=== PATIENT | female | born 1950 | race Caucasian/White ===

== ENCOUNTER → 2019-02-20 13:54 | Outpatient (CLI) | payer MEDICARE, OTHER, SELFPAY ==
[2019-02-20 15:26] LABS: ALB/GLOB Ratio 1.1 RATIO (0.9-2.4); AST(SGOT) 14 U/L (15-37); Alanine Aminotransfer ALT/SGPT 22 U/L (13-56); Albumin, Serum 3.8 g/dL (3.2-5.0); Alkaline Phosphatase 84 U/L (45-117); Anion Gap 6 (5-15); BUN 18 mg/dL (7-18); BUN/Creat Ratio 22.4 RATIO (10-20); Calcium,Total 9.4 mg/dL (8.5-10.1); Chloride 105 mmol/L (98-107); EST Glomerular Filtration Rate 75 mL/min (>60); Est Glom Filt Rate - Afr Amer 91 mL/min (>60); Globulin 3.4 g/dL (2.2-4.2); Glucose 85 mg/dL (74-106); Magnesium 2.3 mg/dL (1.6-2.6); Phosphorus 3.8 mg/dL (2.5-4.9); Potassium 3.9 mmol/L (3.5-5.1); Protein, Total 7.2 g/dL (6.4-8.2); Sodium Level 139 mmol/L (136-145)
[2019-02-20 15:32] LABS: PTHIN 84.4 pg/mL (18.4-80.1)
[2019-02-21 12:39] VITALS: BP 147/66; PULSE 77; RESP 14; TEMP 36.5; O2SAT 100; BMI 22.1
[2019-02-21] MEDS: Zoledronic Acid 5 MG 100 ML 300 MG IV (12:51)
== END ==
LOC: MEDOUTP 14:57 → PAVLAB 15:01 → MEDOUTP 02-21 10:42
PROVIDERS: Family Provider Family Medicine; PCP Family Medicine; Referring Provider Internal Medicine Endocrinology, Diabetes & Metabolism; Visit Provider Internal Medicine Endocrinology, Diabetes & Metabolism
DX: M81.0 Age-related osteoporosis without current pathological fracture (principal); E21.3 Hyperparathyroidism, unspecified
CPT/HCPCS: 96365; 36415; 80053; 82330; 82652; 83735; 83970; 84100; J7050; A4216; J3489

== ENCOUNTER → 2019-11-13 08:22 | Outpatient (CLI) | payer MEDICARE, OTHER, SELFPAY ==
[2019-02-21 12:39] VITALS: BMI 22.1
--- NOTE | 2019-11-13 08:36 | NM_ITS ---
CLINICAL: 69-year-old female with history of hypercalcemia. 99m Tc SESTAMIBI DUAL PHASE PARATHYROID SCINTIGRAPHY COMPARISON: Previous Tc sestamibi parathyroid scintigraphy study dated 04/01/2016 FINDINGS: Following the intravenous administration of 27.0 mCi of 99m Tc sestamibi, image acquisitions of the anterior neck at 20 minutes and 2.0 hours post radiopharmaceutical provision reveal: 1. Immediate static blood pool acquisitions demonstrate distribution of the radiopharmaceutical in the right and left thyroid colloid. There is decreased uptake defined in the midinferior pole of the left thyroid bed. Subtle radiopharmaceutical concentration is defined in the left anterior neck caudal to the inferior pole of the visualized left thyroid bed. 2. Delayed images depict near complete washout of the radiotracer from the previously defined left and right thyroid colloid. Subtle tracer concentration remains evident in the left anterior neck caudal to the previously defined inferior pole of the left thyroid bed. NM/Parathyroid Scan IMPRESSION: 1. The subtle increase in radiopharmaceutical concentration defined in the left anterior neck which appears caudal to the inferior pole of the left thyroid bed may represent the presence of a small parathyroid adenoma. 2. Overall compared to the previous Tc sestamibi parathyroid scintigraphy study dated 04/01/2016, there is potential demonstration of apparent parathyroid adenoma as described above. Electronically Signed: Luis Rodriguez DO at 21:52 EST Tel , Service support ,
== END ==
PROVIDERS: Family Provider Family Medicine; PCP Family Medicine; Referring Provider Internal Medicine Endocrinology, Diabetes & Metabolism; Visit Provider Internal Medicine Endocrinology, Diabetes & Metabolism
DX: E21.3 Hyperparathyroidism, unspecified (principal)
CPT/HCPCS: 78070; A9500

== ENCOUNTER → 2019-12-03 11:18 | Outpatient (CLI) | payer MEDICARE, OTHER, SELFPAY ==
[2019-02-21 12:39] VITALS: BMI 22.1
--- NOTE | 2019-12-03 11:23 | US_ITS ---
STUDY: THYROID ULTRASOUND REASON FOR EXAM: Female, 69 years old. PARATHYROID ENLARGEMENT -- LYMPH NODE ENLARGEMENT TECHNIQUE: Ultrasound evaluation of the thyroid was performed with real-time and static vasques-scale imaging. COMPARISON: 11/13/2019 FINDINGS: RIGHT LOBE: The right lobe of the thyroid gland measures 3.7 x 1.3 x 1.0 cm. There is a homogeneous echotexture. There are no demonstrated solid, cystic or complex lesions. LEFT LOBE: The left lobe of the thyroid gland measures 3.7 x 1.0 x 1.0 cm. There is a homogeneous echotexture. There are no demonstrated solid, cystic or complex lesions. ISTHMUS: The isthmus measures 2.4 mm. The regional lymph nodes are normal. Small hypoechoic rounded structure inferior to the right thyroid lobe likely represents parathyroid tissue. No solid or cystic mass identified adjacent to the left thyroid lobe. US/Thyroid IMPRESSION: No solid or cystic nodules of the thyroid gland. No parathyroid adenoma identified adjacent to the left thyroid lobe as suggested on prior nuclear medicine sestamibi study. Electronically Signed: Yash Mercer MD ([place]) at 12:08 EST , Service support ,
== END ==
PROVIDERS: Family Provider Family Medicine; PCP Family Medicine; Referring Provider Internal Medicine Endocrinology, Diabetes & Metabolism; Visit Provider Internal Medicine Endocrinology, Diabetes & Metabolism
DX: R59.1 Generalized enlarged lymph nodes (principal)
CPT/HCPCS: 76536

== ENCOUNTER → 2020-02-04 12:20 | Outpatient (CLI) | payer MEDICARE, OTHER, SELFPAY ==
[2019-02-21 12:39] VITALS: BMI 22.1
--- NOTE | 2020-02-04 12:25 | BD_ITS ---
STUDY: DUAL ENERGY X-RAY ABSORPTIOMETRY / DXA REASON FOR EXAM: Female, 69 years old. TOE TRIMMER -- USES STEROID NASAL SPRAY DAILY -- TAKES CALCIUM -- HAS TAKEN RECLAST LAST 5 YRS -- DOES MODERATE AMOUNT OF EXERCISE -- FAMILY HX OF OSTEO- MOTHER -- CLAUDIA OF 0.75 INCHES TECHNIQUE: Bone Mineral Density (BMD) measurements of lumbar spine and bilateral hips were obtained. COMPARISON: None. FINDINGS: Lumbar Spine (L1-L4): g/cm2 (0.967) / T-score (-1.8) / Z-score (-0.1) Findings are suggestive of osteopenia with a moderate fracture risk. Left Femur Total: g/cm2 (0.799) / T-score (-1.7) / Z-score (-0.2) Left Femoral Neck: g/cm2 (0.831) / T-score (-1.5) / Z-score (0.2) Right Femur Total: g/cm2 (0.802) / T-score (-1.6) / Z-score (-0.2) Right Femoral Neck: g/cm2 (0.766) / T-score (-2.0) / Z-score (0.3) BD/Dexa Bone Density Study IMPRESSION: The patient is considered osteopenic as outlined below according to World Altaf Organization (WHO) criteria with a moderate fracture risk. Reference Information: The T-score is the number of standard deviations above or below the standard which is normal for young adults at their peak bone mineral density. The World Health Organization (WHO) interprets the T-scores as follows: Above -1 Normal bone density Between -1 and -2.5 Osteopenia Equal to / or below -2.5 Osteoporosis As a practical clinical guideline, osteopenia may be graded as follows: Mild -1 through -1.5 Moderate -1.6 through -2.0 Severe -2.1 through -2.4 The Z-score is the number of standard deviations above or below age-matched controls. A Z-score of less than -1.5 would be considered abnormal. References: 1. NIH Osteoporosis and Related Bone Diseases http://www.osteo.org 2. International Society for Clinical Densitometry http://www.iscd.org 3. National Osteoporosis Foundation http://www.nof.org Electronically Signed: Mani Ignacio, at 14:55 EDT , Service support ,
== END ==
PROVIDERS: Family Provider Family Medicine; PCP Family Medicine; Referring Provider Internal Medicine Endocrinology, Diabetes & Metabolism; Visit Provider Internal Medicine Endocrinology, Diabetes & Metabolism
DX: M81.0 Age-related osteoporosis without current pathological fracture (principal)
CPT/HCPCS: 77080

== ENCOUNTER → 2020-09-08 10:39 | Outpatient (CLI) | payer MEDICARE, OTHER, SELFPAY ==
[2019-02-21 12:39] VITALS: BMI 22.1
--- NOTE | 2020-09-08 10:41 | BI_ITS ---
MAMMOGRAPHY - BILATERAL SCREENING REASON FOR EXAM: Female, 70 years old. Routine annual screening examination. PERTINENT HISTORY: Non-contributory. TECHNIQUE: Digital bilateral breast joey (3D mammographic acquisition) in the CC and MLO projections. 2-D mediolateral oblique (MLO) and craniocaudad (CC) views of both breasts were obtained. CAD: Full Field Digital Mammography with Computer Added Detection was performed. COMPARISON: Comparison is made with prior outside examination is 08/22/2019. FINDINGS: Breast Composition: The breasts are extremely dense, which lowers the sensitivity of mammography. There are no dominant masses or suspicious calcifications. No other significant abnormalities are identified. There has been no significant change since the prior study. BI/SCREEN MAMM (CAD) W/JOEY BILAT IMPRESSION: Stable bilateral screening mammogram. Yearly follow-up mammogram recommended. (A) ASSESSMENT CATEGORY: BIRADS Category 1: Negative. A letter regarding these results will be sent to the patient by the facility within 30 days. Approximately 10% of breast cancers are not detected by mammography. A normal mammogram should not delay biopsy of a clinically suspicious abnormality. [id number] Electronically Signed: Mani Ignacio, at 14:22 EDT , Service support ,
== END ==
PROVIDERS: PCP Internal Medicine; Referring Provider Internal Medicine; Visit Provider Internal Medicine
CPT/HCPCS: 77063; 77067

== ENCOUNTER 2021-04-29 11:24 | Emergency (ER) | payer MEDICARE, OTHER, SELFPAY ==
[2019-02-21 12:39] VITALS: BMI 22.1
[2021-04-29 11:25] VITALS: BP 194/87; PULSE 63; RESP 15; TEMP 36.4; O2SAT 100; BMI 21.9
--- NOTE | 2021-04-29 11:39 | EX.ED.DYSGE1 ---
HPI History of Present Illness Chief Complaint: Lower Extremity Injury Informant: patient Narrative Narrative: 70-year-old female states she did a 15 mile bike ride recently and her right knee was generally sore. Today she was sitting on her barstool with her leg underneath of her when she went to straighten it had significant pain. She states now is very painful for her to do almost any type of motion. She states she can bear weight. She applied knee brace and iced it. She is seen [facility] in the past. [facility] Medical History (Updated 04/29/21 @ 11:[address] London Carrera DO) Arthritis Hypertension Home Medications L.acidoph, paracasei,B. lactis 1 ea PO DAILY 11/13/17 [History Last Taken Unknown] antiarthritic combination no.2 [Glucosamine-Chondroitin] 900 mg PO DAILY 11/13/17 [History Last Taken Unknown] biotin 1 mg PO DAILY 11/13/17 [History Last Taken Unknown] cholecalciferol (vitamin D3) [Vitamin D3] 1,000 unit PO DAILY 11/13/17 [History Last Taken Unknown] fluticasone propionate 2 spray NASAL DAILY 11/13/17 [History Last Taken Unknown] omega-3 fatty acids 1,000 mg PO DAILY 11/13/17 [History Last Taken Unknown] Allergy/AdvReac Type Severity Reaction Status Date / Time naproxen Allergy Unknown Verified 06/23/17 11:07 Penicillins Allergy Rash Verified 06/23/17 11:07 azithromycin AdvReac Nausea/Vom/ Verified 06/23/17 11:07 Diarrhea Surgical History (Updated 04/29/21 @ 11:[address] London Carrera DO) H/O tubal ligation History of parathyroid surgery Social History (Updated 04/29/21 @ 11:[address] London Carrera DO) Smoking Status: Never smoker substance use type: does not use ROS ROS ED Constitutional Constitutional ED: Denies chills or weight loss Eyes Eyes: Denies change in vision or diplopia ENT ENT ED: Denies ear pain, rhinorrhea or sore throat Cardiovascular Cardiovascular: Denies chest pain, orthopnea, palpitations or racing heartbeat Respiratory/Chest Respiratory/Chest: Denies cough, dyspnea or orthopnea Gastrointestinal Gastrointestinal: Denies abdominal pain, diarrhea, nausea or vomiting Genitourinary Genitourinary ED: Denies dysuria, hematuria or urinary frequency Musculoskeletal Musculoskeletal: Reports other Details: See history of present illness ; Denies arthralgias or myalgias Integumentary Denies abscess or rash Neurologic Neurologic: Denies headache(s) or weakness Psychiatric Psychiatric: Denies anxiety, depression, suicidal ideation or suicidal thoughts Endocrine Endocrinology: Denies polydipsia, polyphagia or polyuria Allergic/Immunologic Allergic/Immunologic ED: Denies mouth swelling, tongue swelling or urticaria EXAM Physical Exam Const Vital Signs: 04/29/21 11:25 Temperature 97.6 F L Temperature Source Temporal Pulse Rate 63 Respiratory Rate 15 Blood Pressure 194/87 H Blood Pressure Mean 122 Pulse Ox 100 Oxygen Delivery Method Room Air Positive well nourished and well developed General Appearance ED: well developed HEENT Reports normocephalic, head/scalp atraumatic and moist mucous membranes Eyes PERRL and EOMs intact bilaterally Neck no lymphadenopathy, supple and no JVD Resp normal respiratory effort and clear to auscultation bilaterally Cardio regular rate, regular rhythm and no murmurs GI normal to inspection, nondistended, normoactive bowel sounds and non-tender Palpation: soft Back/Spine no CVA tenderness and normal ROM Extremity Extremity Narrative: Ligaments appear stable. There is no effusion or significant swelling seen. Patient has point tenderness just medial to the inferior aspect patella along the tibial plateau. General Extremety ED: Negative for edema General Extremity: Negative for edema Neuro oriented x3 and CN's II-XII intact bilaterally Sensorium / Orientation: alert Motor Exam: strength 5/5 throughout Psych mental status grossly normal Mood & Affect: Negative for depressed or tearful Skin no rashes or lesions noted and no wounds MDM MDM MDM Narrative Medical decision making narrative: My impression of the plain films of the knee is no acute fracture but degenerative changes noted. Patient was encouraged to wrap the knee and limit full range of motion and ice. Would recommend some anti-inflammatories. If not improving would recommend she follow-up with [facility]. Radiography Diagnostic Testing: Radiology Impression Knee X-Ray 04/29/21 11:45 IMPRESSION: Degenerative arthrosis. Electronically Signed: Mani Ignacio MD at 12:09 EDT , Service support , Discharge Plan Triage Chief Complaint: Lower Extremity Injury ED Provider: London Carrera Dx/Rx/DC Orders Clinical Impression: Acute pain of right knee Instructions: ED Meniscal Injury Knee Poss Prescriptions: No Action omega-3 fatty acids 1,000 MG capsule 1,000 mg PO DAILY RF: 0 fluticasone propionate 1 SPRAY Nasal.Sry 2 spray NASAL DAILY RF: 0 cholecalciferol (vitamin D3) [Vitamin D3] 1,000 UNIT capsule 1,000 unit PO DAILY RF: 0 antiarthritic combination no.2 [glucosamine-chondroitin] 900 MG tablet 900 mg PO DAILY RF: 0 biotin 1 MG capsule 1 mg PO DAILY RF: 0 L.acidoph, paracasei,B. lactis 1 EACH capsule 1 ea PO DAILY RF: 0 Primary Care Provider: Jennifer Romeo Referrals: Jennifer Romeo DO [Primary Care Provider] - As Needed Joel Modi MD [STAFF PHYSICIAN] - 10-14 Days if not better Activity Restrictions/Additional Instructions: Continue to wrap the knee. Ice and anti-inflammatories (ibuprofen or naproxen) Disposition Disposition: Home, self care
--- NOTE | 2021-04-29 11:45 | RAD_ITS ---
STUDY: X-RAY - RIGHT KNEE REASON FOR EXAM: Female, 70 years old. Injury TECHNIQUE: 3 view(s) of the knee. COMPARISON: None. FINDINGS: Normal visualized distal femur. Normal visualized proximal tibia and fibula. Normal proximal tibiofibular articulation. There is mild degenerative arthrosis of the medial femorotibial compartment. There is mild degenerative arthrosis of the lateral femorotibial compartment. Normal patellofemoral articulation. The soft tissue structures are unremarkable. RAD/Knee 3 Views IMPRESSION: Degenerative arthrosis. Electronically Signed: Mani Ignacio MD at 12:09 EDT , Service support ,
== END 2021-04-29 12:32 | disposition home or self-care (01) ==
PROVIDERS: Emergency Provider Emergency Medicine; PCP Internal Medicine
DX: M25.561 Pain in right knee (principal); I10 Essential (primary) hypertension; M19.90 Unspecified osteoarthritis, unspecified site; Z79.899 Other long term (current) drug therapy
CPT/HCPCS: 73562; 99282

== ENCOUNTER → 2021-09-21 13:21 | Outpatient (CLI) | payer MEDICARE, OTHER, SELFPAY ==
--- NOTE | 2021-09-21 13:23 | BI_ITS ---
MAMMOGRAPHY - BILATERAL SCREENING REASON FOR EXAM: Female, 71 years old. Routine annual screening examination. PERTINENT HISTORY: Non-contributory. TECHNIQUE: Digital bilateral breast joey (3D mammographic acquisition) in the CC and MLO projections. 2-D mediolateral oblique (MLO) and craniocaudad (CC) views of both breasts were obtained. CAD: Full Field Digital Mammography with Computer Added Detection was performed. COMPARISON: Comparison is made with prior study 09/08/2020. FINDINGS: Breast Composition: The breasts are extremely dense, which lowers the sensitivity of mammography. There are no dominant masses or suspicious calcifications. No other significant abnormalities are identified. There has been no significant change since the prior study. BI/SCRN MAMM (CAD)W/JOEY BILAT IMPRESSION: Stable bilateral screening mammogram. Yearly follow-up mammogram recommended. (A) ASSESSMENT CATEGORY: BIRADS Category 1: Negative. A letter regarding these results will be sent to the patient by the facility within 30 days. Approximately 10% of breast cancers are not detected by mammography. A normal mammogram should not delay biopsy of a clinically suspicious abnormality. [id number] Electronically Signed: Mani Ignacio MD at 11:04 EDT , Service support ,
== END ==
PROVIDERS: PCP Internal Medicine; Referring Provider Internal Medicine; Visit Provider Internal Medicine
DX: Z12.31 Encounter for screening mammogram for malignant neoplasm of breast (principal)
CPT/HCPCS: 77063; 77067

== ENCOUNTER → 2021-11-01 07:52 | Outpatient (CLI) | payer MEDICARE, OTHER, SELFPAY ==
[2021-11-01 07:59] LABS: Bacteria 0 SEEN /hpf (None Seen); Mucous, Urine 0 SEEN /hpf (<or=2+); Red Blood Cells-Urine 0 SEEN /hpf (0-5); Squamous Epithelial Cells - UA 0 SEEN /hpf (5-10); White Blood Cells 0 SEEN /hpf (0-5)
[2021-11-01 09:59] LABS: Absolute Lymphocyte Count 1.59 X10^3/uL (0.83-4.51); Absolute Neutrophil Count 2.6 X10^3/uL (2.0-7.7); Basophil# 0.05 X10^3/uL; Color, Urine Yellow (Yellow); Eosinophil# 0.14 X10^3/uL; Eosinophils% 2.9 % (0-5); Glucose, Dipstick Normal (Normal); Hematocrit 37.7 % (37-47); Hemoglobin 12.3 g/dL (12.0-15.0); Ketone-Dipstick Negative (Negative); Leukocyte Esterase-Dipstick 25 /ul (Negative); Lymphocyte # 1.59 X10^3/ul (0.83-4.51); Lymphocyte % 33.3 % (19-41); Mean Corp Hgb Conc 32.6 g/dL (32-36); Mean Corpuscular Hgb 29.4 pg (27.0-32.0); Mean Corpuscular Volume 90.2 fL (81-99); Mean Platelet Vol. 10.3 fl (6.2-12.0); Monocyte# 0.36 X10^3/uL; Monocyte% 7.5 % (0-10); NRBC Flagged by Analyzer 0 % (0-5); Neutrophil # 2.62 X10^3/uL (2.7-7.7); Neutrophil % 54.9 % (47-70); Nitrite-Dipstick Negative (Negative); Occult Blood-Urine Negative /ul (Negative); Platelet Count 360 K/mm3 (150-450); Protein-Dipstick Negative (Negative); RBC Distribution Width CV 13.2 % (11.6-14.6); RBC Distribution Width SD 43.7 fl (35.1-43.9); Red Blood Count 4.18 M/mm3 (4.2-5.4); Urine Bilirubin Dipstick Negative (Negative); Urine Clarity Clear (Clear); Urine Urobilinogen Normal (Normal); Urine pH 6.5 (5.0 - 8.0); White Blood Count 4.8 K/mm3 (4.4-11.0)
[2021-11-01 10:25] LABS: ALB/GLOB Ratio 0.8 RATIO (0.9-2.4); AST(SGOT) 16 U/L (15-37); Alanine Aminotransfer ALT/SGPT 23 U/L (13-56); Albumin, Serum 3.4 g/dL (3.2-5.0); Alkaline Phosphatase 77 U/L (45-117); Anion Gap 8 (5-15); BUN 18 mg/dL (7-18); BUN/Creat Ratio 22.5 RATIO (10-20); Calcium,Total 9.3 mg/dL (8.5-10.1); Chloride 106 mmol/L (98-107); Cholesterol 223 mg/dL (200); EST Glomerular Filtration Rate 75 mL/min (>60); Est Glom Filt Rate - Afr Amer 91 mL/min (>60); Glucose 80 mg/dL (74-106); High Density Lipoprotein 82 mg/dL; Potassium 3.9 mmol/L (3.5-5.1); Protein, Total 7.4 g/dL (6.4-8.2); Sodium Level 141 mmol/L (136-145); Thyroid Stim Hormone (TSH) 3.33 uIU/mL (0.358-3.74); Triglycerides 49 mg/dL; Very Low Density Lipoprotein 10 mg/dL (5-40)
[2021-11-01 10:26] LABS: Microalbumin,Random Urine < 5.0 mg/L (NO RANGE EST.)
[2021-11-01 10:51] LABS: Hepatitis C Antibody Non-Reactive (Nonreactive); Vitamin D,25 Hydroxy 42.3 ng/mL
== END ==
PROVIDERS: PCP Internal Medicine; Referring Provider Internal Medicine; Visit Provider Internal Medicine
DX: I10 Essential (primary) hypertension (principal); E03.9 Hypothyroidism, unspecified; E55.9 Vitamin D deficiency, unspecified; Z11.59 Encounter for screening for other viral diseases
CPT/HCPCS: 36415; 80053; 80061; 81001; 82043; 82306; 82570; 84443; 85025; 86803

== ENCOUNTER → 2022-03-31 | Outpatient (CLI) | payer MEDICARE, OTHER, SELFPAY ==
--- NOTE | 2022-03-31 08:33 | BD_ITS ---
STUDY: DUAL ENERGY X-RAY ABSORPTIOMETRY / DXA REASON FOR EXAM: Female, 71 years old. [id number]. The patient is postmenopausal. TECHNIQUE: Bone Mineral Density (BMD) measurements of lumbar spine and bilateral hips were obtained. COMPARISON: Comparison is made with prior study of 02/04/2020. FINDINGS: Lumbar Spine (L1-L4): g/cm2 (0.803) / T-score (-2.2) / Z-score (0.0) Findings are suggestive of osteopenia with a high fracture risk. Left Femur Total: g/cm2 (0.714) / T-score (-1.9) / Z-score (-0.3) Left Femoral Neck: g/cm2 (0.645) / T-score (-1.8) / Z-score (0.1) Right Femur Total: g/cm2 (0.763) / T-score (-1.5) / Z-score (0.1) Right Femoral Neck: g/cm2 (0.632) / T-score (-2.0) / Z-score (-0.1) The T-Scores on the most recent prior examination were: Lumbar Spine (L1-L4): There has been worsening of bone density since the previous examination. Left Femur Total: which represents a worsening of 3.4%. Right Femur Total: which represents an improvement of 2.9%. BD/Dexa Bone Density Study IMPRESSION: The patient is considered osteopenic as outlined below according to World Altaf Organization (WHO) criteria with a high fracture risk. There has been worsening of bone density since the previous examination. Reference Information: The T-score is the number of standard deviations above or below the standard which is normal for young adults at their peak bone mineral density. The World Health Organization (WHO) interprets the T-scores as follows: Above -1 Normal bone density Between -1 and -2.5 Osteopenia Equal to / or below -2.5 Osteoporosis As a practical clinical guideline, osteopenia may be graded as follows: Mild -1 through -1.5 Moderate -1.6 through -2.0 Severe -2.1 through -2.4 The Z-score is the number of standard deviations above or below age-matched controls. A Z-score of less than -1.5 would be considered abnormal. References: 1. NIH Osteoporosis and Related Bone Diseases www osteo.org 2. International Society for Clinical Densitometry www iscd.org 3. National Osteoporosis Foundation www nof.org Electronically Signed: Mani Ignacio MD at 11:04 EDT ,
== END | disposition home or self-care (01) ==
LOC: OPBD 08:28
PROVIDERS: PCP Internal Medicine; Visit Provider Internal Medicine
DX: Z78.0 Asymptomatic menopausal state (principal)
CPT/HCPCS: 77080

== ENCOUNTER → 2022-10-03 | Outpatient (CLI) | payer MEDICARE, OTHER, SELFPAY ==
--- NOTE | 2022-10-03 09:49 | BI_ITS ---
MAMMOGRAPHY - BILATERAL SCREENING REASON FOR EXAM: Female, 72 years old. Routine annual screening examination. PERTINENT HISTORY: Non-contributory. TECHNIQUE: Digital bilateral breast joey (3D mammographic acquisition) in the CC and MLO projections. 2-D mediolateral oblique (MLO) and craniocaudad (CC) views of both breasts were obtained. CAD: Full Field Digital Mammography with Computer Added Detection was performed. COMPARISON: Comparison is made with prior study dated 09/21/2021 and 09/08/2020. FINDINGS: Breast Composition: The breasts are extremely dense, which lowers the sensitivity of mammography. There are no dominant masses or suspicious calcifications. No other significant abnormalities are identified. There has been no significant change since the prior study. BI/SCRN MAMM (CAD)W/JOEY BILAT IMPRESSION: Stable bilateral screening mammogram. Yearly follow-up mammogram recommended. (A) ASSESSMENT CATEGORY: BIRADS Category 1: Negative. A letter regarding these results will be sent to the patient by the facility within 30 days. Approximately 10% of breast cancers are not detected by mammography. A normal mammogram should not delay biopsy of a clinically suspicious abnormality. [id number] Electronically Signed: Mani Ignacio MD at 10:24 EST ,
== END | disposition home or self-care (01) ==
LOC: OPBI 09:47
PROVIDERS: PCP Internal Medicine; Referring Provider Internal Medicine; Visit Provider Internal Medicine
DX: Z12.31 Encounter for screening mammogram for malignant neoplasm of breast (principal)
CPT/HCPCS: 77063; 77067

== ENCOUNTER → 2022-12-01 | Outpatient (CLI) | payer MEDICARE, OTHER, SELFPAY ==
--- NOTE | 2022-12-01 14:35 | VDLE_ITS ---
Reason For Study: LEG PAIN AND SWELLING RIGHT LEFT CFV is compressible, spontaneous, phasic, GSV is normal. competent and demonstrates normal CFV is compressible, spontaneous, phasic, augmentation. competent, and demonstrates normal Procedure augmentation. This is a venous duplex using B-mode, color FV is compressible, spontaneous, phasic, flow and spectral Doppler. competent and demonstrates normal Exam performed in department. augmentation. The exam was diagnostic. POP V is compressible, spontaneous, phasic, A preliminary report was called and/or faxed competent and demonstrates normal to Dr. Romeo. augmentation. T/P Trunk is compressible. PTV is compressible. LT PerV is compressible. Possible Epidermoid Cyst measuring approximately 2.35cm x 1.11cm noted Lt Mid Calf. VL/Venous Duplex US, Unilateral Interpretation Summary There is no evidence of left lower extremity deep vein thrombosis. Left great s aphenous vein appears patent and compressible segmentally. Normal flow patterns right common femoral vein Left mid calf subcutaneous 2.35 x 1.11 cm structure of undetermined etiology. C linical correlation would be appropriate. Ordering Physician: Jennifer Romeo Referring Physician: Jennifer Romeo Performed By: Kelechi Burk RVGail
== END | disposition home or self-care (01) ==
LOC: CVS 14:33
PROVIDERS: PCP Internal Medicine; Referring Provider Internal Medicine; Visit Provider Internal Medicine
DX: M79.662 Pain in left lower leg (principal)
CPT/HCPCS: 93971

== ENCOUNTER → 2022-12-16 | Outpatient (CLI) | payer MEDICARE, OTHER, SELFPAY ==
--- NOTE | 2022-12-16 07:53 | CT_ITS ---
EXAM: CT LEFT LOWER EXTREMITY WITHOUT INTRAVENOUS CONTRAST, TIBIA AND FIBULA CLINICAL INDICATION: mass of lower extremity. soft tissue swelling mid tibia area TECHNIQUE: Helically acquired images were obtained of the left tibia and fibula without intravenous contrast. 2-D reformats were performed by the technologist. This CT exam was performed using one or more of the following dose reduction techniques: automated exposure control, adjustment of the mA and/or kV according to patient size, and/or use of iterative reconstruction technique. This report was created using [employer] technology. COMPARISON: None. FINDINGS: BONES/JOINTS: No acute fracture or subluxation. Small left knee joint effusion. 4.9 x 1.9 cm Roque cyst. Arthritic narrowing and bony spurring of the knee joint. SOFT TISSUES: No soft tissue swelling or gas. No radiopaque foreign body. No soft tissue mass or hematoma. 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 Electronically Signed: Juan Miguel Arenas MD at 16:37 EST ,
== END | disposition home or self-care (01) ==
LOC: CT 07:52
PROVIDERS: PCP Internal Medicine; Visit Provider Internal Medicine
DX: M17.12 Unilateral primary osteoarthritis, left knee (principal); M71.20 Synovial cyst of popliteal space [Baker], unspecified knee; R22.42 Localized swelling, mass and lump, left lower limb
CPT/HCPCS: 73700

== ENCOUNTER → 2023-10-09 | Outpatient (CLI) | payer MEDICARE, OTHER, SELFPAY ==
--- NOTE | 2023-10-09 10:46 | BI_ITS ---
MAMMOGRAPHY - BILATERAL SCREENING REASON FOR EXAM: Female, 73 years old. Routine annual screening examination. PERTINENT HISTORY: Non-contributory. TECHNIQUE: Digital bilateral breast joey (3D mammographic acquisition) in the CC and MLO projections. 2-D mediolateral oblique (MLO) and craniocaudad (CC) views of both breasts were obtained. CAD: Full Field Digital Mammography with Computer Added Detection was performed. COMPARISON: Comparison is made with prior study of October 03, 2022 and September 21, 2021. FINDINGS: Breast Composition: The breasts are extremely dense, which lowers the sensitivity of mammography. There are no dominant masses or suspicious calcifications. No other significant abnormalities are identified. There has been no significant change since the prior study. BI/SCRN MAMM (CAD)W/JOEY BILAT IMPRESSION: Stable bilateral screening mammogram. Yearly follow-up mammogram recommended. (A) ASSESSMENT CATEGORY: BIRADS Category 1: Negative. A letter regarding these results will be sent to the patient by the facility within 30 days. Approximately 10% of breast cancers are not detected by mammography. A normal mammogram should not delay biopsy of a clinically suspicious abnormality. [id number] Electronically Signed: Mani Ignacio MD at 13:22 EST ,
== END | disposition home or self-care (01) ==
LOC: OPBD 10:45
PROVIDERS: PCP Internal Medicine; Referring Provider Internal Medicine; Visit Provider Internal Medicine
DX: Z12.31 Encounter for screening mammogram for malignant neoplasm of breast (principal)
CPT/HCPCS: 77063; 77067

== ENCOUNTER → 2023-11-29 | Outpatient (CLI) | payer MEDICARE, OTHER, SELFPAY ==
--- NOTE | 2023-11-29 15:00 | CT_ITS ---
INDICATION: NODULE EXAMINATION: CT CHEST WITH CONTRAST - CT Chest W/ Contrast Injection TECHNIQUE: Helically acquired images were obtained of the chest following IV contrast. A radiation dose optimization technique was used for this scan. IV Contrast dosage and agent: 100 cc of Isovue-[id number]. CTDI vol is 9.04. DLP: 178.48 COMPARISON: None. FINDINGS: LUNGS, PLEURA AND LARGE AIRWAYS: Mild bilateral lower lobe atelectasis. No masses, infiltrates, or edema. Left lower lobe calcified granuloma measuring 5 mm. Mild biapical pleural thickening with minimal calcified plaques. No pleural effusion . No pneumothorax. THYROID: No thyroid lesions. HEART AND PERICARDIUM: Heart size is normal. No pericardial effusion. VESSELS: Mild atherosclerosis of aorta with no aneurysm. No aortic dissection. No obvious central pulmonary embolism although this study was not performed with the pulmonary embolism protocol. MEDIASTINUM AND CELESTINA: No mediastinal or hilar adenopathy. Nonspecific calcifications within the mediastinum most compatible with sequela of old granulomatous infection. Esophagus is unremarkable. No hiatal hernia. UPPER ABDOMEN: No acute pathology. BONES: Mild spondylosis/degenerative disease. No suspicious lytic or blastic abnormality. CT/Chest WITH Contrast IMPRESSION: Mild bilateral lower lobe atelectasis, otherwise no acute cardiopulmonary disease. No pleural effusion or pneumothorax. Electronically Signed: Corrie Fleming MD at 17:00 EST ,
[2023-11-29 15:26] LABS: CREATININE FINGERSTICK < 1.0 mg/dL (0.55-1.02)
== END | disposition home or self-care (01) ==
LOC: CT 14:58
PROVIDERS: PCP Internal Medicine; Referring Provider Internal Medicine; Visit Provider Internal Medicine
DX: R91.1 Solitary pulmonary nodule (principal)
CPT/HCPCS: 71260

== ENCOUNTER → 2024-02-01 | Outpatient (CLI) | payer MEDICARE, OTHER, SELFPAY ==
--- NOTE | 2024-02-01 13:00 | CT_ITS ---
CT RIGHT LOWER EXTREMITY WITH 3-D IMAGING CLINICAL INDICATION: OA/PREOP TECHNIQUE: Axial CT images of the right lower extremity (including right hip, right knee, and right ankle) was performed without IV contrast material. Coronal and sagittal reformats were provided. RADIATION DOSAGE (If Supplied By Facility): CTDIvol = ( 17.01 ) mGy, DLP = ( 1236.12 ) mGycm COMPARISON: Right knee radiographs dated 04/29/2021. FINDINGS: Bones: There is mild degenerative arthrosis of the right hip joint with mild joint space narrowing and marginal osteophyte formation. There is tricompartment degenerative arthrosis of the right knee, with joint space narrowing and marginal osteophyte formation, most pronounced in the lateral femorotibial compartment. There is an 8 mm osteochondral lesion along the medial talar dome (sagittal series 607 image 28). Osseous structures are otherwise intact without evidence of fracture or dislocation. No lytic or blastic osseous masses. Soft Tissues: There is a moderate joint effusion. The deep soft tissue structures are unremarkable. The superficial soft tissues are unremarkable without evidence of edema, hematoma, or foreign body. CT/Extremity Lower without Contra IMPRESSION: Tricompartment degenerative arthrosis, most severe in the lateral femorotibial compartment. 8 mm osteochondral lesion along the medial talar dome. Electronically Signed: David Lindsey MD at 15:04 EST ,
== END | disposition home or self-care (01) ==
LOC: CT 12:58
PROVIDERS: PCP Internal Medicine; Referring Provider Specialist; Visit Provider Specialist
DX: M17.11 Unilateral primary osteoarthritis, right knee (principal)
CPT/HCPCS: 73700

== ENCOUNTER 2024-02-21 06:55 | Observation (INO) | payer MEDICARE, OTHER, SELFPAY ==
--- NOTE | 2024-02-01 12:57 | EKG12_ITS ---
Test Reason : PRE OP Blood Pressure : / mmHG Vent. Rate : 077 BPM Atrial Rate : 077 BPM P-R Int : 156 ms QRS Dur : 064 ms QT Int : 370 ms P-R-T Axes : 062 068 068 degrees QTc Int : 418 ms Normal sinus rhythm Septal infarct , age undetermined Abnormal ECG Confirmed by Aime Martin ([id number]), slot editor JOSH DEJESUS ([id number]) on 02/05/2024 2:00:34 PM Referred By: Kade Barnett Confirmed By:Aime Martin
[2024-02-01 14:14] LABS: Absolute Lymphocyte Count 1.79 X10^3/uL (0.83-4.51); Absolute Neutrophil Count 3.4 X10^3/uL (2.0-7.7); Basophil# 0.05 X10^3/uL; Basophil% 0.9 % (0-1); Eosinophil# 0.19 X10^3/uL; Eosinophils% 3.2 % (0-5); Hematocrit 36.6 % (37-47); Hemoglobin 11.7 g/dL (12.0-15.0); Lymphocyte # 1.79 X10^3/ul (0.83-4.51); Lymphocyte % 30.6 % (19-41); Mean Corpuscular Hgb 29.3 pg (27.0-32.0); Mean Corpuscular Volume 91.7 fL (81-99); Mean Platelet Vol. 10.2 fl (6.2-12.0); Monocyte# 0.44 X10^3/uL; Monocyte% 7.5 % (0-10); NRBC Flagged by Analyzer 0 % (0-5); Neutrophil # 3.37 X10^3/uL (2.7-7.7); Neutrophil % 57.6 % (47-70); Platelet Count 303 K/mm3 (150-450); RBC Distribution Width CV 13.2 % (11.6-14.6); RBC Distribution Width SD 44.7 fl (35.1-43.9); Red Blood Count 3.99 M/mm3 (4.2-5.4); White Blood Count 5.9 K/mm3 (4.4-11.0)
[2024-02-01 14:35] LABS: Albumin, Serum 3.6 g/dL (3.2-5.0); Anion Gap 8 (5-15); BUN 26 mg/dL (7-18); BUN/Creat Ratio 31.7 RATIO (10-20); Calcium,Total 9.4 mg/dL (8.5-10.1); Chloride 103 mmol/L (98-107); Creatinine, Serum 0.82 mg/dL (0.55-1.02); EST Glomerular Filtration Rate 73 mL/min (>60); Est Glom Filt Rate - Afr Amer 88 mL/min (>60); Glucose 108 mg/dL (74-106); Sodium Level 140 mmol/L (136-145)
[2024-02-01 14:56] LABS: AST(SGOT) 14 U/L (15-37); Alanine Aminotransfer ALT/SGPT 15 U/L (13-56); Albumin, Serum 3.6 g/dL (3.2-5.0); Alkaline Phosphatase 65 U/L (45-117); Bilirubin, Direct 0.09 mg/dL (0.00-0.30); Globulin 3.3 g/dL (2.2-4.2); Magnesium 2.2 mg/dL (1.6-2.6); Protein, Total 6.9 g/dL (6.4-8.2)
[2024-02-01 15:03] LABS: Prothrombin Time (Protime)PT. 12.8 SECONDS (11.7-14.9)
[2024-02-01 15:09] LABS: Partial Thromboplast Time 29.2 Seconds (24.1-36.2)
--- NOTE | 2024-02-12 23:00 | HP.PCM_ITS ---
History and Physical History and Physical? Patient Name: Ana Sanchez : 1950 From:? FRANSISCO KIM PA-C? DATE OF PRE-OPERATIVE EXAM: 02/12/2024 DATE OF SURGERY:? 02/21/2024 SCHEDULED PROCEDURE:? Robotic-assisted right total knee arthroplasty HISTORY OF PRESENT ILLNESS: Preoperative history and physical exam was performed on February 12, 2024.? This is a 73-year-old female who is having ongoing pain in bilateral knees for several years.? Patient's pain is been intermittent, dull, sharp and sore.? She does state the right knee pain has been more progressive over the past several months.? She has increased pain with going up and down stairs and walking.? Patient has difficulty with activities of daily living including housework and any leisure activities such as hiking and hiking.? She feels unsafe going up and down stairs.? She has tried conservative measures including rest, ice, heat, elevation and previous corticosteroid injection with no relief.? She has been through formal physical therapy, home exercises, child care supervisor and Visco supplementation injection without relief.? She has tried oral medications including ibuprofen, meloxicam and Celebrex.? She states she is able to tolerate the Celebrex.? She takes once daily.? She has also attempted bracing without significant relief.? She denies past history of surgery on the right knee.? After failing conservative measures and discussing all treatment options with Dr. Kade Barnett, the patient does wish to proceed with a right total knee arthroplasty.? Patient has obtained clearance from the primary care provider Dr. Romeo.? Patient has medical history pertinent for hypercholesterolemia and irritable bowel syndrome.? Patient denies past history of DVT or pulmonary emb olism.? There is been no recent chest pain, shortness of breath, fevers chills or recent infections.? Preoperatively patient's hemoglobin was found to be 11.7.? She denies past history of transfusions.? She does state that at one point when trying to get blood she was told she was not able to.? This happened many years ago.? She has not been treated for any anemia by the primary care provider.? She has been started on our anemia protocol preoperatively.? Per primary care physician not it was noted that she has had some elevated blood pressure readings.? She has been tolerating the Celebrex.? She has been taking it once daily. REVIEW OF SYSTEMS: Review Of Systems: Constitutional: Denies change in appetite, fever,or weight change. Cardiovasular: Denies chest pain, heart murmur and irregular heartbeat. Respiratory: Denies cough, pneumonia, shortness of breath, tuberculosis and wheezing. Gastrointestinal: Denies constipation, diarrhea, heartburn, nausea, rectal itching, bloody stools and vomiting. Genitourinary: Denies incontinence. Musculoskeletal: Reports leg swelling and pain, but denies trouble walking and weakness. Skin: Denies Raynaud's, history of shingles and tattoo. Neurological: Denies ambulatory dysfunction, dizziness, numbness/tingling and tremor. Psychiatric: Reports anxiety, but denies insomnia and stress. Hematologic/Lymphatic: Denies anemia, bleeding/bruising tendency and past transfusion. Reviewed, no changes. PAST MEDICAL HISTORY: Advance Care Plan: No Advance Directives Effective Date: 07/02/2020 Past Medical History: Medical Problems: Hypercholesterolemia, Arthritis Covid- 19 - (09/2020) IBS Accidents: None Surgical Hx: Hernia Repair - (1983) Tubal Ligation - (1983) Thyroid SX - (04/2020) L4-5 (bilateral) Transforaminal Epidural Steroid Injection - (03/15/2022) Dr Freda Da Silva @ [facility] Anesthesia Complications: None Assistive Devices: None Reviewed and updated. SOCIAL HISTORY: Social History: Marital: .Occupation: Retired.Work Status: Retired.Hand Dominance: Right- handed. Personal Habits:? Cigarette Use: Never Smoked Cigarettes.Smokeless Tobacco: Never Used Smokeless Tobacco.E-Cigarette Use: Never used.Alcohol: Occasionally.Drug Use: Denies Use.Enjoy Exercising: Exercises 1-3 X/Week. Reviewed, no changes. VITALS: Ht: 60.5 Wt: 113lb Wt k.257 BMI: 21.7 BP: 132/80 Pulse: 60 Resp: 15 T: 97.0 T: 36.1C Pain Level: 0 O2SatR: 96 ALLERGIES: Sulfa Erythromycin Marcaine - Headache Xylocaine - Headache Latex Naproxen? MEDICATIONS: Glucosamine Chondroitin 1500 Complex 1500 Com, Fluticasone Propionate 50 mcg/Act 1 spray nasally? daily, Biotin 5000 mcg po daily, Vitamin C? 1 po qd, Probiotic? 1 po qd, Zinc 50 mg 1po qday, Prevagen 10 mg 1po qday, Fish Oil 1000 mg daily, Calcium + D3 600-200 daily, Vitamin D3 250 mcg (00372 Ut) daily, Tylenol 8 Hour 650 mg twice a day prn, Celebrex 50 mg once a day, Ferrous Sulfate 325 (65 Fe) MG take 1 tablet by mouth twice a day, Folic Acid 1 mg 1 by mouth every day PRE-OP EXAM:? General appearance:NORMAL? ? ? Other: Eyes: Conjunctivae and lids: NORMAL? Pupils: ERR Ears, Nose, Mouth, and Throat: NORMAL? Other: Inspection of lips, teeth and gums: NORMAL? ?Other: Neck: Examination of neck: no masses noted. Respiratory: Assessment of respiratory effort: NORMAL? ?Other: ?Auscultation of lungs: clear to auscultation no wheezes, rhonchi or rales. Cardiovascular:? Auscultation of heart: regular rate and rhythm, no murmurs, gallops or rubs. PHYSICAL EXAMINATION: Patient does walk with an antalgic gait.? She has tenderness to palpation along the lateral joint line.? She has valgus alignment which is partially correctable.? She has crepitus with range of motion.? Range of motion: Lacks 3 full extension to 110 flexion with increased pain.? Stable to anterior/posterior drawer exam.? Sensation intact to light touch. IMAGING STUDIES: Previous x-rays of the right knee reveal valgus alignment and lateral joint space narrowing, subchondral sclerosis, osteophyte formation consistent with severe stage IV osteoarthritis IMPRESSION: 1.? Severe right knee osteoarthritis 2.? Severe left knee osteoarthritis 3.? Hypercholesterolemia 4.? Irritable bowel syndrome 5.? Anemia: Current hemoglobin 11.7 preoperatively 6.? Elevated blood pressure without diagnosis of hypertension PLAN: Dr. Kade Barnett did discuss and review with the patient all treatment options including surgical versus nonsurgical options.? Patient does wish to proceed with the above-stated procedure.? Potential risks, benefits, and complications of the procedure were discussed in detail including but not limited to , infection, nerve and blood vessel damage, persistent pain, numbness, tingling, paresthesias, blood clot, pulmonary embolism, and requirement for possible further surgery.? The patient expressed full understanding and has no further questions for the doctor.? Patient does agree to proceed with the above-stated procedure and has signed the surgery consent form. POST-OP MEDICATION PLAN: Pain Medications:? ?Pain regimen will be initiated by Dr. Kade Barnett in the hospital.? Patient is currently on Celebrex in which she tolerates.? Patient has begun anemia protocol in which she was started on ferrous sulfate and folic acid.? Preoperatively her hemoglobin was 11.7.?? DVT Prophylaxis:? Aspirin 81 mg twice daily for 4 weeks postoperatively.? Denies past history of DVT or pulmonary embolism This dictation was created using voice recognition software. Phonetic and/or grammatical errors may exist. ___? I have re-examined the patient.? There are no clinical changes since date of exam. ___? See progress notes for changes. ___? Dictated on admission Date: ? ? ?Time: Signature:
[2024-02-21] VITALS (16 sets, daily range): BP systolic 94–167; BP diastolic 51–94; PULSE 69–85; RESP 16–18; TEMP 35.8–36.6; O2SAT 95–100; BMI 21.2
--- NOTE | 2024-02-21 | KNEE_PTH ---
PATIENT: NAVEEN FUENTES LOC: MS3 U#:[id number] AGE/SX: 73/F ROOM: [facility] [place] RE02/21/[address]: Dr. Kade Barnett MD : 1950 BED: 1 DIS: 02/22/2024 SPEC #: [id number] RECD: 02/21/24 10:44 STATUS: DENAE FONTAINE #: [id number] JUAN: 02/21/24 00:[address]: Kade Barnett DEPT: SURGICAL PATHOLOGY RECD BY: Ronaldo Young ENTERED: 02/21/24 10:44 SP TYPE: TOTAL KNEE OTHR DR: Dr. Jennifer Romeo, DO Tissues: Knee, NOS Procedures: Decalcification bone/plaque Surgery Specimen Level IV HEADER OPERATION: NELLY, robotic assisted right total knee arthroplasty PRE-OP DIAGNOSIS: Severe right knee osteoarthritis TISSUE SUBMITTED: Right knee bone and tissue MICROSCOPIC DIAGNOSIS Bone and soft tissue, right knee, total knee replacement/resection: Pieces of bone with severe degenerative osteoarthritic changes. Fibroadipose tissue, fibroconnective tissue and reactive synovial tissue. RAFAEL: 02/26/24 MICROSCOPIC DESCRIPTION Slides are reviewed. GROSS DESCRIPTION Received is one container designated bone and soft tissue right knee. The specimen consists of multiple fragments of lake-yellow bone measuring in aggregate 12.0 x 12.0 x 2.0 cm. Also in the specimen container are multiple fragments of yellow-white soft tissue measuring in aggregate 5.0 x 2.0 x 0.6 cm. A number of bony fragments contain articular surfaces consistent with tibial plateau and femoral condyle and displaying prominent osteophyte formation, eburnation and bone erosion. Cost Control Supervisor sections are submitted in two cassettes as follows: 1 - soft tissue, 2 - bone after decalcification. / AM/ 02/21/24 TC:5 CPT: 15244, 59444
[2024-02-21] MEDS: Lactated Ringers 1,000 ML 999 ML IV (06:26)
[2024-02-21] MEDS: Acetaminophen 500 MG Tablet 1000 MG PO ×3 (06:28→21:29)
[2024-02-21] MEDS: Gabapentin 600 MG Tablet PO (06:29)
[2024-02-21] MEDS: Celecoxib 200 MG Capsule 400 MG PO (06:29)
[2024-02-21] MEDS: Magnesium 1 GM over 15 mins IV (06:30)
[2024-02-21] MEDS: Cefazolin 2 GM in 0.9% Normal Saline (100mL Bag) 100 ML IV (07:25)
[2024-02-21] MEDS: Lactated Ringers 1,000 ML 75 ML IV (07:27)
[2024-02-21] MEDS: TXA 1000mg in NS100 100ml (IVPB at Incision) 660 MG IV (07:44)
[2024-02-21] MEDS: dexAMETHasone 10 MG/ML Vial IV (07:44)
[2024-02-21 07:48] LABS: Bedside Glucose 59 mg/dL (74-106)
[2024-02-21] MEDS: JPS (Morphine 10mg/ml) OPERA.SITE (08:24)
[2024-02-21] MEDS: TXA 1000mg in NS100 100ml (IVPB at Closure) 660 MG IV (08:35)
--- NOTE | 2024-02-21 08:41 | OP.PCM_ITS ---
Report of Operation Date of Procedure: 02/21/24 Pre-Operative Diagnosis: Right knee primary osteoarthritis Post-Operative Diagnosis: Right knee primary osteoarthritis Surgery/Procedure Performed:: Right minimally invasive robotic total knee replacement Description of Surgical Findings:: Stable knee with good patella tracking Surgeon: Kade Barnett check examiner: Trevin Curiel Type of Anesthesia: Spinal Anesthesiologist: Santos Moss Special Medications: 2 g Ancef, 1 g TXA at incision, 1 g TXA closure, 10 mg Decadron, joint cocktail (5 mg Duramorph, 30 mL of 0.5% Ropivicaine, 1000 units of epinephrine, 30 mg of Toradol) Specimen's removed: Bony cuts Estimated Blood Loss (mL): 50 Fluids Replaced: 1500 ml crystalloid Description of Procedure: Implants used: 1. [place] size 3 triathlon cruciate retaining distal femoral press-fit component 2. Phani size 3 press-fit tritanium tibial baseplate 3. Phani X3 9 mm CS polyethylene 4. [place] X3 32 million asymmetric patella Brief history operative indications: 73-year-old f with history of right knee osteoarthritis with radiographic findings with loss of joint space, osteophyte formation and subchondral sclerosis. Failed conservative measures as mentioned in the H&P. Discussion of total knee arthroplasty as well as risk and benefits were discussed the patient including but not limited to blood loss, DVTs, PEs, neurovascular damage, general risk of anesthesia including loss of life, and stiffness or instability were discussed with patient. Patient demonstrated understanding and was able to sign informed consent. Procedure: On the date of procedure patient's right lower extremity was marked in the preoperative area. The patient was then taken back to the operating room where the patient was placed on the table in the supine position. All bony prominences were identified a well-padded. Anesthesia assumed control of the C-spine and airway and remained controlled throughout the remainder of the procedure. A tourniquet was placed on the right upper thigh and the leg was prepped in a sterile fashion. The surgeon then scrubbed at this time .Upon reentering the room right lower extremity was draped in a standard orthopedic fashion. A timeout was then called and everyone agreed upon the side, the site, the procedure to be performed, patient's identity and antibiotics given. Esmarch bandage was used to exsanguinate the extremity and the tourniquet was placed up to 250 mmHg with the knee in flexion. A midline skin incision was made and sharp dissection was taken down through skin subcutaneous tissue and fat. The standard medial parapatellar incision was made and the patella was subluxed laterally. An Appropriate deep MCL release was done and the fat pad was resected. Our attention was then directed to the patella. The patella was everted and a flat resection was made. The knee was then flexed up in 2 femoral pins were placed inside the incision and 2 tibial pins were placed outside the incision in the medial tibia bicortically. Once this was completed the 2 checkpoints in the femur and tibia were placed. Knee was then flexed up and the bony landmarks were registered. Once this was completed knee was taken through range of motion and manually stressed allowing us to a plan for an appropriate tibial cut. The robotic arm was brought into the field sterilely and checkpoint and saw were registered. Based on the patient's deformity the tibial cut was made neutral to the tibial axis. At this time the tensioner was then placed in the joint and ligament tension was checked at 90 degrees and full extension. Based on the patient's ligamentous tension appropriate adjustments were made to the operative plan and ligament releases were done. Once we were happy with our operative plan with balanced flexion and extension gaps our attention was directed to the femur. The robot was brought into the field sterilely and registered. Posterior condylar cuts, anterior chamfer cuts and anterior cuts were appropriately made for a size 3 femur. When these were completed the saws were switched out in the distal femoral and posterior chamfer cuts were made. Protecting the soft tissue throughout this time. A size 3 tibial base plate was selected. the knee was flexed to 90 degrees and the soft tissues and posterior osteophytes were removed from the joint. 40 cc of the periarticular injection was injected into the posterior medial corner of the joint. The appropriate trials were then placed on the femur and tibia. A trial polyethylene was trialed to ensure proper balancing and stability of the knee. The appropriate tibial internal rotation was then marked with a bovie. Our attention was then directed to the patella. The lug holes were drilled and the patella trial was placed. Patellar tracking was checked and deemed appropriate. Once we were happy lug holes were drilled for the femur and trial components were removed. the tibia was subluxed and pinned into place and the keel was punc hed and drilled appropriately. Final components were verified and opened, and cement was mixed in a vacuum. Phani Simplex cement was used. The wound was copiously irrigated with normal saline. When the cement was ready the components were impacted into place starting with the tibia, femur and finally cementing the patella. The trial poly component was placed and the knee was placed in full extension. All excess cement was removed in the process. Once the cement had cured the tracking, alignment and balance were verified and a size [] polyethylene component was placed. Once the final components were placed a 3-minute dilute Betadine lavage was performed followed by an Irrisept lavage was performed and the wound was copiously irrigated with normal saline solution and the periarticular injection was given. The wound was closed in a layer stevens fashion using #1 vicryl interrupted sutures for the arthrotomy, 2-0 interrupted Vicryl suture for the subcuticular layer and joseph for final skin closure. A sterile compressive dressing was then placed. The patient was then awakened from anesthesia, [place] and transferred to the PACU for recovery. Post op plan DVT ppx: ASA 81mg BID, thigh high compression stockings Follow up: in office in 2 weeks for wound check PT: to start POD #0 at hospital, outpatient PT should be arranged. My physician licensed loan officer assistant was a vital part of this case. He was important in appropriate retraction during the case, and protection of soft tissues during bony cuts. His intimate knowledge of the case and my steps aided in safe and expedient completion of the procedure as well as appropriate position of the leg during the case. He was also vital in assisting with closure under my direct supervision. Due to the complexity of this case robotic arm was used to assist in the surgery to improve accuracy and clinical outcomes. Complications No intraoperative complications Admit VTE Documentation VTE Present on Admission: No VTE Mechan Device Prophylaxis: SCD's and Thigh High MACHELLE Hose VTE Pharm Prophylaxis ordered?: Yes
--- NOTE | 2024-02-21 09:20 | RAD_ITS ---
STUDY: X-RAY - RIGHT KNEE REASON FOR EXAM: Female, 73 years old. Post op -- AP and Lateral xray of operative knee in PACU TECHNIQUE: 2 view(s) of the knee. COMPARISON: Comparison is made with prior study dated April 29, 2021. FINDINGS: Normal visualized distal femur. Normal visualized proximal tibia and fibula. Normal proximal tibiofibular articulation. The patient is status post total knee replacement. There is good alignment. Postoperative soft tissue changes. RAD/Knee 1 or 2 Views IMPRESSION: Status post total knee replacement. There is good alignment. Postoperative soft tissues changes. Electronically Signed: Mani Ignacio MD at 9:38 EDT ,
[2024-02-21] MEDS: Lactated Ringers 1,000 ML 125 ML IV (09:26)
[2024-02-21 10:29] LABS: Bedside Glucose 155 mg/dL (74-106)
[2024-02-21] MEDS: oxyCODONE 5 MG Tablet PO ×3 (13:33→23:40)
[2024-02-21] MEDS: Famotidine 20 MG Tablet PO (13:34)
[2024-02-21] MEDS: Aspirin 81 MG TAB.CHEW PO ×2 (13:34→21:29)
[2024-02-21] MEDS: Senna/Docusate Sodium 1 Tablet 2 TABLET PO (13:34)
[2024-02-21] MEDS: Cholecalciferol (VIT D3) 25 MCG TABLET (1,000 UNITS) PO (13:35)
[2024-02-21] MEDS: 0.9% Normal Saline (250mL Bag) 250 ML 15 ML IV (13:35)
[2024-02-21] MEDS: Calcium Carbonate 500 MG Tablet PO (13:35)
[2024-02-21] MEDS: Cefazolin 1 GM/50 ML BAG IV ×2 (15:17→23:40)
--- NOTE | 2024-02-21 15:28 | PN.HOSP_ITS ---
Reason for Visit Reason for Visit: Right knee osteoarthritis Subjective Subjective Mrs. Sanchez is a 73-year-old white female who presented to [facility] for an elective robotic assisted right total knee arthroplasty on 02/21/2024. She evidently had been having ongoing pain in bilateral knees for several years and failed outpatient conservative management. She met with Dr. Barnett and decided to proceed with a total knee arthroplasty. She was cleared medically by her primary care physician and taken to the OR this morning. We have been consulted for postoperative medical management of her chronic issues. She was seen on the medical floor after her surgery. Patient states she is feeling quite well and has been doing her exercises and has been out of bed. Denies any nausea and was able to eat without difficulty. Plan is for discharge home tomorrow as long as she stable does well with therapy. No complaints at this time. Objective Data Objective Data Vital Signs: Vital Signs Temp Pulse Resp BP Pulse Ox O2 Del Method O2 Flow Rate 97.8 F 69 18 146/79 H 98 Room Air 4 02/21/24 15:14 02/21/24 15:14 02/21/24 15:14 02/21/24 15:14 02/21/24 15:14 02/21/24 15:14 02/21/24 11:42 Oxygen Flow Rate (L/min) 4 Oxygen Delivery Method Room Air Weight: 51 kg Body Mass Index (BMI) 21.2 Intake & Output: Intake and Output for Last 24 Hours 02/19/24 02/20/24 02/21/24 23:59 23:59 23:59 Intake Total 3218.33 / 3218.33 Balance 3218.33 / 3218.33 Lab / Micro Data 02/01/24 13:38 02/01/24 13:38 Labs: Laboratory Results - last 24 hr 02/21/24 06:13: POC Glucose 59 L 02/21/24 10:10: POC Glucose 155 H Micro: Microbiology 02/01/24 13:38 Swab (Method) Nasal Screen MRSA/MSSA - Final Radiography Diagnostic Testing: Radiology Impression Knee X-Ray 02/21/24 09:20 IMPRESSION: Status post total knee replacement. There is good alignment. Postoperative soft tissues changes. Electronically Signed: Mani Ignacio MD at 9:38 EDT , Physical Exam Const alert, oriented x3, no apparent distress, average body habitus, healthy appearing and well nourished Constitutional Narrative: Very pleasant, older, white female lying in bed, at bedside, appears comfortable and nontoxic, watching television HEENT head/scalp atraumatic and moist oral mucous membranes Head and Scalp: normocephalic Resp normal respiratory effort, no retractions, no use of accessory muscles and clear to auscultation bilaterally Auscultation: Negative for rales, rhonchi or wheezes Cardio regular rate, regular rhythm, S1 normal heart sound, S2 normal heart sound, no murmurs, no rub, no gallops and no clicks GI normal to inspection, nondistended, normoactive bowel sounds, soft to palpation and non-tender Extremity no clubbing, cyanosis or edema Extremity Narrative: ASHWIN hose in place, right lower extremity with polar ice in place, pedal pulses a re 2+ Neuro oriented x3, moves all extremities and no focal motor deficits Speech: speech normal Psych affect normal Psych Narrative: Extremely pleasant, interacts appropriately Assessment & Plan Assessment/Plan (1) Osteoarthritis of right knee: PLAN: Plan Right knee osteoarthritis -Postop day 0 minimally invasive robotic total knee arthroplasty -PT/OT consultation per primary service -Pain management per primary service -Would recommend utilizing scheduled bowel regimen while on narcotics -Aspirin 81 mg p.o. twice daily and thigh-high Ashwin stockings recommended for DVT prophylaxis -Plan is for outpatient follow-up in 2 weeks for wound check and any imaging that needs to be proceeded with and Dr. Barnett's office Hyperlipidemia -Patient is not on any chronic medication for this Seasonal allergies -Continue nasal fluticasone History of IBS -Restart home medications at discharge DVT prophylaxis -Aspirin 81 mg p.o. twice daily -ASHWIN stockings Disposition: -Patient appears to be stable -Will assess again tomorrow morning but follow peripherally as I do anticipate discharge in the next 24 hours Charges/Coding Visit Charges Inpatient E&M: 20882 Subs Hosp L2
--- NOTE | 2024-02-21 15:49 | CHAPLAIN ---
Type of Pastoral Visit _x__ Initial Visit ___ Follow-up Visit ___ On-call Visit ___ General Patient Visit ___ Spiritual Assessment ___ Family Conference ___ Bereavement ___ Rapid Response ___ Code Blue ___ Other (describe below) Pastoral Care Referral From _x__ Patient ___ Family ___ Nurse ___ Physician ___ Coil Former ___ Collections Attorney ___ Other (describe below) Sacrament/Intervention _x__ Active listening ___ Anointing ___ Zoroastrian ___ Bereavement ___ Communion _x__ Mary exploration ___ _x__ Life review _x__ Prayer ___ Reconciliation ___ Sacrament of Sick ___ Supportive presence ___ Wedding ___ Other (describe below) Pastoral Comments post op for patient; spouse is with pt in room; both are welcoming of spiritual care; pt is very active in her moravian; pt is optimistic about recovery but welcomes the support and the prayers for this time of healing; some life review given
[2024-02-21] MEDS: Ketorolac 15 MG/ML Vial IV (21:29)
[2024-02-22 03:31] VITALS: BP 150/81; PULSE 73; RESP 16; TEMP 36.6; O2SAT 98
[2024-02-22] MEDS: Acetaminophen 500 MG Tablet 1000 MG PO ×2 (06:35→13:23)
[2024-02-22] MEDS: oxyCODONE 5 MG Tablet PO ×2 (06:35→12:08)
[2024-02-22] MEDS: 0.9% Saline Lock 10 ML Syringe IV ×2 (07:21→13:24)
[2024-02-22] MEDS: Ketorolac 15 MG/ML Vial IV ×2 (07:21→13:24)
[2024-02-22 08:00] VITALS: BP 166/87; PULSE 82; RESP 18; TEMP 37.1; O2SAT 98
[2024-02-22] MEDS: Aspirin 81 MG TAB.CHEW PO (08:06)
[2024-02-22] MEDS: Senna/Docusate Sodium 1 Tablet 2 TABLET PO (08:06)
[2024-02-22] MEDS: Calcium Carbonate 500 MG Tablet PO (08:06)
[2024-02-22] MEDS: Famotidine 20 MG Tablet PO (08:06)
[2024-02-22] MEDS: Cholecalciferol (VIT D3) 25 MCG TABLET (1,000 UNITS) PO (08:06)
[2024-02-22 08:08] LABS: Hematocrit 33.8 % (37-47); Mean Corp Hgb Conc 32.5 g/dL (32-36); Mean Corpuscular Hgb 29.3 pg (27.0-32.0); Mean Corpuscular Volume 89.9 fL (81-99); Mean Platelet Vol. 10.3 fl (6.2-12.0); Platelet Count 297 K/mm3 (150-450); RBC Distribution Width CV 12.9 % (11.6-14.6); RBC Distribution Width SD 42.5 fl (35.1-43.9); Red Blood Count 3.76 M/mm3 (4.2-5.4); White Blood Count 9.1 K/mm3 (4.4-11.0)
[2024-02-22 08:41] LABS: Anion Gap 5 (5-15); BUN 15 mg/dL (7-18); BUN/Creat Ratio 19.3 RATIO (10-20); Calcium,Total 8.8 mg/dL (8.5-10.1); Chloride 105 mmol/L (98-107); Creatinine, Serum 0.78 mg/dL (0.55-1.02); EST Glomerular Filtration Rate 77 mL/min (>60); Est Glom Filt Rate - Afr Amer 93 mL/min (>60); Estimated Creatinine Clearance 47.26 ml/min; Glucose 111 mg/dL (74-106); Potassium 3.8 mmol/L (3.5-5.1); Sodium Level 136 mmol/L (136-145)
--- NOTE | 2024-02-22 09:55 | CASEMGMT ---
SINDY GUIDRY Assessment: Face to Face with pt for initial transition planning/care coordination assessment. SINDY GUIDRY introduced self and role at [facility], pt voices understanding and consents to assessment. Pt is A&O x4 and answers all questions appropriately at this time. Pt lying in bed in no distress, reports just finished with therapy. Care providers, pharmacy, and demographics verified/updated. Admitting Dx: Robotic Assisted Right Total Knee Arthroplasty PCP:Ousmane Specialists:darshana Barnett; amber Wells mgmt Preferred Pharmacy: [facility] Retail Insurance: MCR, MMO Prescription Benefit: yes LNOK: Emeka Sanchez, Living Arrangements: Pt lives with in a single story home with 1 step to enter. Pt reports she was I in ADL's and denies concerns at home. Pt is able to assist as needed. Transportation: Pt drives self and denies concerns with transportation. Pt will transport pt until she can drive again. DME:Grab bar in shower, FWW, shower chair, [facility] HHC/SNF: Pt denies hx of Pt states no concerns with going home at time of dc. Pt states she has outpt therapy set up for 02/25 at [facility]. Pt states no further concerns/needs. CM to follow. Advised pt to ask CM if any further question/concerns/needs arise, voices understanding. Pt Goal: Home with outpt therapy already set up Plan: Home with outpt therapy already set up TC to 's office and appt made for 1wk for f/u with BP per PA request. Placed on dc instructions. Nathan CALLAHAN CM
--- NOTE | 2024-02-22 10:00 | PCM.PN.ORT ---
Subjective Subjective The patient was sitting in bed upon examination with present. Patient denies any chest pain, shortness of breath, dizziness, lightheadedness, nausea or vomiting, or calf pain. Pain is controlled on medications. No adverse overnight events. Patient overall is doing well today. She did very well with physical therapy. She has had some elevated blood pressure without diagnosis of hypertension. She denies any chest pain or rapid heart rate. No shortness of breath. Denies any headache. Objective Data Objective Data Vital Signs: Vital Signs Temp Pulse Resp BP Pulse Ox O2 Del Method O2 Flow Rate 98.7 F 82 18 166/87 H 98 Room Air 4 02/22/24 08:00 02/22/24 08:00 02/22/24 08:00 02/22/24 08:00 02/22/24 08:00 02/22/24 08:00 02/21/24 11:42 Oxygen Flow Rate (L/min) 4 Oxygen Delivery Method Room Air Weight: 51 kg Body Mass Index (BMI) 21.2 Intake & Output: Intake and Output for Last 24 Hours 02/20/24 02/21/24 02/22/24 23:59 23:59 23:59 Intake Total 3268.33 / 3318.33 258 / 258 Balance 3268.33 / 3318.33 258 / 258 Lab / Micro Data 02/22/24 06:15 02/22/24 06:15 Labs: Laboratory Results - last 24 hr 02/21/24 10:10: POC Glucose 155 H 02/22/24 06:15: WBC 9.1, RBC 3.76 L, Hgb 11.0 L, Hct 33.8 L, MCV 89.9, MCH 29.3, MCHC 32.5, RDW Std Deviation 42.5, RDW Coeff of Rae 12.9, Plt Count 297, MPV 10.3, Sodium 136, Potassium 3.8, Chloride 105, Carbon Dioxide 26.0, Anion Gap 5, BUN 15, Creatinine 0.78, Estim Creat Clear Calc 47.26, Est GFR (MDRD) Af Amer 93, Est GFR (MDRD) Non-Af 77, BUN/Creatinine Ratio 19.3, Glucose 111 H, Calcium 8.8 Micro: Microbiology 02/01/24 13:38 Swab (Method) Nasal Screen MRSA/MSSA - Final Physical Exam Narrative Vital signs stable and afebrile. Mildly elevated blood pressure SCDs and MACHELLE hose are in place bilaterally Patient is able to plantarflex and dorsiflex actively. Sensation is intact to light touch to saphenous, sural, superficial and deep peroneal, and tibial distribution. Dressing is clean dry and intact. Negative Homans bilaterally, negative signs and symptoms of DVT. Const alert, oriented x3 and no apparent distress Assessment & Plan Assessment/Plan (1) Status post total right knee replacement: PLAN: 1. S/P robotic assisted right total knee arthroplasty POD #1 2. Continue Pain Medications: Patient is currently on Exer strength Tylenol and oxycodone. She takes Celebrex at home. They do have the ability to monitor her blood pressure at home. If it remains high I would recommend she hold the Celebrex. 3. DVT Prophylaxis: Take 81 mg aspirin twice daily for 4 weeks postoperatively for DVT prophylaxis. Patient denies past history of DVT or pulmonary embolism 4. PT/OT: Weightbearing as tolerated with walker. Patient did very well this morning with therapy. 5. H & H: 11.0/33.8, asymptomatic. Labs were reviewed and are stable. 6. Elevated blood pressure without diagnosis of hypertension: Case was discussed with the hospitalist and recommends no current treatment. Does recommend 1 week follow-up with the primary care physician to reassess blood pressure. I did discuss this with the patient. Patient does have the ability to monitor her blood pressure. If needed they will contact the primary care physician if having any complications prior to her scheduled visit. Case management will assist in scheduling appointment. 7. Continue postoperative medical management per medicine 8. Encouraged Incentive Spirometry 9. Disposition: Plan will be for discharge home today as patient has been cleared by medicine, has been tolerating therapy, and pain is adequately controlled. She would like her prescriptions E scribed to [facility]. She has outpatient physical therapy established. She will follow-up per postoperative instructions. Upon discharge she will contact our office with any concerns or questions. Case management is scheduling a 1 week follow-up with her primary care physician for reassessment of blood pressure. I have reviewed the [place] Automated Rx Reporting System (OARRS) report for this patient for refill pattern and other prescriber involvement as part of the appropriate surveillance for the provision of acute and chronic controlled medications. The report was requested and reviewed on the date of this entry and was considered in the prescribing process. This dictation was created using voice recognition software. Phonetic and/or grammatical errors may exist.
--- NOTE | 2024-02-22 10:06 | PCM.DC ---
Discharge Instructions Diet Discharge Diet: No restrictions Activity Discharge Activity: May Not Drive (No driving for 6 weeks postoperatively. Must also be off all narcotics and able to walk 100 feet without the use of cane or walker.) May shower in (days): 1 (Please turn dressing away from water. Okay to get wet as long as dressing is intact to skin.) Ice area for (Minutes): 20 (Every 1-2 hours while awake[address] place barrier between the skin and ice pack.) Weight Bearing Status: Weight bearing as tolerated Keep extremity elevated above heart level: Operative Extremity Dressing / Incision Call your doctor if your incision/area has: Continuous Slow Oozing, Sudden Increased Bleeding, Increased Pain/ Swelling, Increased Redness and Foul Smelling Discharge Call your doctor if you observe: Fever of 101 or Higher, Coldness, Increased Pain, Numbness or Tingling, Change in Color, Shortness of breath, Chest pain, Calf discomfort and Uncontrolled pain Remove Dressing in: 4 days (Okay to remove dressing on February 26, 2024) Additional Dressing/Incision Instructions:: Follow [facility] Post-op Instructions. Once postoperative dressing has been removed only use gentle soap and water over the incision. Do not use any ointments, Neosporin, salves, alcohol pads over the incision for 6 weeks postoperatively. Do not submerge underwater for 6 weeks postoperatively. Continue with MACHELLE hose/elastic stockings for 2 weeks postoperatively. May remove at nighttime but needs to be placed back on the leg during the day. Do NOT use alcohol with narcotic pain medication. Do NOT make important decisions while taking narcotic medication. If you have problems with taking your medication (rash, itching, nausea, etc.) call the office at once. Follow Up Care Test Results: Test results from this visit will be discussed in further detail at your follow-up appointment, if applicable. Discharge Plan Admission Admit Date/Time: 02/21/24 06:55 Attending Provider: Kade Barnett Primary Care Provider: Jennifer Romeo Consulting Providers: Bonnie Lindsey Discharge Orders/Prescriptions Prescriptions: New acetaminophen 500 mg Tablet 1,000 mg PO Q8 14 Days Qty: 84 0RF Rx Instructions: Do not take more than 3000 mg Tylenol in a 24-hour period. aspirin 81 mg Tablet,Chewable 81 mg PO BID 30 Days Qty: 60 0RF Rx Instructions: Take 81 mg aspirin twice daily for 4 weeks postoperatively for DVT prophylaxis. famotidine 20 mg Tablet 20 mg PO DAILY 30 Days Qty: 30 0RF oxycodone 5 mg Tablet 5 - 10 mg PO Q4H PRN PRN (Reason: Pain Score 4-10) 7 Days Qty: 42 0RF sennosides-docusate sodium [Stool Softener-Stimulant Laxat] 8.6-50 mg Tablet 2 tab PO BID 3 Days Qty: 12 0RF Rx Instructions: Take until first bowel movement, then as needed Continued omega-3 fatty acids 1,000 MG capsule 1,000 mg PO DAILY fluticasone propionate 1 SPRAY spray,suspension 2 spray intranasal DAILY PRN (Reason: nasal congestion) cholecalciferol (vitamin D3) [Vitamin D3] 1,000 UNIT capsule 1,000 unit PO DAILY glucosamine-chondroitin 900 MG tablet 900 mg PO DAILY biotin 1 MG capsule 1 mg PO DAILY L.acidoph, paracasei,B. lactis 1 EACH capsule 1 ea PO DAILY celecoxib 100 mg capsule 100 mg PO BID calcium carbonate [Calcium 600] 600 mg calcium (1,500 mg) tablet 600 mg PO DAILY Discontinued diphenhydramine-acetaminophen [Tylenol PM Extra Strength] 1 tab PO QHS Referrals / Follow Up: physical,therapy [Other] - 02/26/24 Jennifer Romeo DO [Primary Care Provider] - Trevin Curiel PA-C [Med Staff - [facility] Practice Prof] - 03/07/24 1:45 pm Disposition Disposition (needs filled in before D/C Order can be placed): Home, Self Care
--- NOTE | 2024-02-22 10:18 | CASEMGMT ---
Met with pt to complete GIRARD form. GIRARD form explained to pt who voiced understanding and signed form. Original form placed in pt?s chart and copy provided to?pt. Sharri Knox, Discharge Planning Asst
--- NOTE | 2024-02-22 11:00 | CASEMGMT ---
Social Work Pt has a HCPOA on file at [facility] naming her Maxwell Sanchez as decision maker. Pt has marked on HCPOA that pt chose not to complete a living will. KINGSTON Franco
[2024-02-22 13:21] VITALS: BP 179/93; PULSE 72; RESP 18; TEMP 37; O2SAT 99
--- NOTE | 2024-02-22 14:22 | PHA.DC_ITS ---
Pharmacy [facility] has performed discharge medication reconciliation and counseling for this patient. The patient's discharge medication list was reviewed for discrepancies and discrepancies were resolved. The patient was counseled on the following discharge medications and changes in medications for homegoing were reviewed. 1. OXYCODONE 2. TYLENOL 3. ASPIRIN 4. SENNA-S 5. FAMOTIDINE The Reason for Use, instructions for use, and potential side effects were reviewed for all new medications. The patient's questions regarding all of their medications were answered. The patient was able to verbally demonstrate an understanding of their discharge medications. Medications at Discharge Home Medications L.acidoph, paracasei,B. lactis 10 billion cell capsule 1 ea PO DAILY 11/13/17 antiarthritic combination no.2 900 mg tablet (glucosamine-chondroitin) 900 mg PO DAILY 11/13/17 biotin 1 mg capsule 1 mg PO DAILY 11/13/17 cholecalciferol (vitamin D3) 25 mcg (1,000 unit) capsule (Vitamin D3) 1,000 unit PO DAILY 11/13/17 fluticasone propionate 50 mcg/actuation nasal spray,suspension 2 spray intranasal DAILY PRN nasal congestion 11/13/17 omega-3 fatty acids 1,000 mg capsule 1,000 mg PO DAILY 11/13/17 celecoxib 100 mg capsule 100 mg PO BID 01/26/24 calcium carbonate 600 mg calcium (1,500 mg) tablet (Calcium) 600 mg PO DAILY 02/21/24 acetaminophen 500 mg tablet 1,000 mg (2 x 500 mg) PO Q8 14 days #84 tabs 02/22/24 aspirin 81 mg chewable tablet 81 mg PO BID 30 days #60 tabs 02/22/24 famotidine 20 mg tablet 20 mg PO DAILY 30 days #30 tabs 02/22/24 oxycodone 5 mg tablet 5 - 10 mg (1 - 2 x 5 mg) PO Q4H PRN PRN Pain Score 4-10 7 days #42 tabs 02/22/24 sennosides 8.6 mg-docusate sodium 50 mg tablet (Stool Softener-Stimulant Laxative) 2 tab PO BID 3 days #12 tabs 02/22/24
== END 2024-02-22 14:33 | disposition home or self-care (01) ==
LOC: SDC 10:09 → MS3 10:09
PROVIDERS: Anesthesiology; Admitting Provider Specialist; PCP Internal Medicine; Referring Provider Specialist; Visit Provider Specialist
PROC: 0SRC0JZ Replacement of Right Knee Joint with Synthetic Substitute, Open Approach (ICD-10-PCS; CPT 27447; principal; 2024-02-21 07:00)
DX: M17.0 Bilateral primary osteoarthritis of knee (principal); D64.9 Anemia, unspecified; E78.00 Pure hypercholesterolemia, unspecified; K58.9 Irritable bowel syndrome, unspecified; R03.0 Elevated blood-pressure reading, without diagnosis of hypertension; Z79.899 Other long term (current) drug therapy; Z79.51 Long term (current) use of inhaled steroids; Z86.2 Personal history of diseases of the blood and blood-forming organs and certain disorders involving the immune mechanism
CPT/HCPCS: 27447; S2900; 01402; 36415; 73560; 80048; 80076; 82040; 82962; 83735; 85025; 85027; 85610; 85730; 87081; 88305; 88311; 93005; 94668; 96365; 96366; 96375; 96376; 97162; 97166; 97530; 97535; 99221; 99252; C1776; J7050; J7120; A4216; G0378; G0463; J3475

== ENCOUNTER → 2024-04-02 | Outpatient (CLI) | payer MEDICARE, OTHER, SELFPAY ==
--- NOTE | 2024-04-02 09:55 | BD_ITS ---
STUDY: DUAL ENERGY X-RAY ABSORPTIOMETRY / DXA REASON FOR EXAM: Female, 73 years old. [id number] TECHNIQUE: Bone Mineral Density (BMD) measurements of lumbar spine and bilateral hips were obtained. COMPARISON: Comparison is made with prior study March 31, 2022. FINDINGS: Lumbar Spine (L1-L4): g/cm2 (0.729) / T-score (-2.6) / Z-score (-0.4) Findings are suggestive of osteoporosis with a high fracture risk. Left Femur Total: g/cm2 (0.718) / T-score (-1.8) / Z-score (-0.1) Left Femoral Neck: g/cm2 (0.633) / T-score (-1.9) / Z-score (0.1) Right Femur Total: g/cm2 (0.740) / T-score (-1.7) / Z-score (0.1) Right Femoral Neck: g/cm2 (0.620) / T-score (-2.1) / Z-score (-0.1) The T-Scores on the most recent prior examination were: Lumbar Spine (L1-L4): There has been worsening of bone density since the previous examination. Left Femur Total: which represents an improvement of 0.5%. Right Femur Total: which represents a worsening of 3%. BD/Dexa Bone Density Study IMPRESSION: The patient is considered osteoporotic as outlined below according to World [employer] Organization (WHO) criteria with a high fracture risk. There has been worsening of bone density since the previous examination. Reference Information: The T-score is the number of standard deviations above or below the standard which is normal for young adults at their peak bone mineral density. The World Health Organization (WHO) interprets the T-scores as follows: Above -1 Normal bone density Between -1 and -2.5 Osteopenia Equal to / or below -2.5 Osteoporosis As a practical clinical guideline, osteopenia may be graded as follows: Mild -1 through -1.5 Moderate -1.6 through -2.0 Severe -2.1 through -2.4 The Z-score is the number of standard deviations above or below age-matched controls. A Z-score of less than -1.5 would be considered abnormal. References: 1. NIH Osteoporosis and Related Bone Diseases www osteo.org 2. International Society for Clinical Densitometry www iscd.org 3. National Osteoporosis Foundation www nof.org Electronically Signed: Mani Ignacio MD at 13:04 EDT ,
== END | disposition home or self-care (01) ==
LOC: OPBD 09:49
PROVIDERS: PCP Internal Medicine; Referring Provider Internal Medicine; Visit Provider Internal Medicine
DX: Z78.0 Asymptomatic menopausal state (principal)
CPT/HCPCS: 77080

== ENCOUNTER → 2024-08-19 | Outpatient (CLI) | payer MEDICARE, OTHER, SELFPAY ==
[2024-08-21 06:09] LABS: Creatinine, Urine 90.2 mg/dL (Not Estab.); N-Telopeptide, Urine 246 nmol BCE (Not Estab.); NTX:Creatinine Ratio, Urine 31 (0-89)
== END | disposition home or self-care (01) ==
LOC: MTLAB 09:10
PROVIDERS: PCP Internal Medicine; Referring Provider Internal Medicine Endocrinology, Diabetes & Metabolism; Visit Provider Internal Medicine Endocrinology, Diabetes & Metabolism
DX: M81.0 Age-related osteoporosis without current pathological fracture (principal); E21.3 Hyperparathyroidism, unspecified
CPT/HCPCS: 82523

== ENCOUNTER → 2024-10-10 | Outpatient (CLI) | payer MEDICARE, OTHER, SELFPAY ==
--- NOTE | 2024-10-10 11:52 | BI_ITS ---
MAMMOGRAPHY - BILATERAL SCREENING REASON FOR EXAM: Female, 74 years old. Routine annual screening examination. PERTINENT HISTORY: Non-contributory. TECHNIQUE: Digital bilateral breast joey (3D mammographic acquisition) in the CC and MLO projections. 2-D mediolateral oblique (MLO) and craniocaudad (CC) views of both breasts were obtained. CAD: Full Field Digital Mammography with Computer Added Detection was performed. COMPARISON: Comparison is made with prior study October 09, 2023 and October 03, 2022. FINDINGS: Breast Composition: The breasts are extremely dense, which lowers the sensitivity of mammography. There are no dominant masses or suspicious calcifications. No other significant abnormalities are identified. There has been no significant change since the prior study. BI/SCRN MAMM (CAD)W/JOEY BILAT IMPRESSION: Stable bilateral screening mammogram. Yearly follow-up mammogram recommended. (A) ASSESSMENT CATEGORY: BIRADS Category 1: Negative. A letter regarding these results will be sent to the patient by the facility within 30 days. Approximately 10% of breast cancers are not detected by mammography. A normal mammogram should not delay biopsy of a clinically suspicious abnormality. [id number] Electronically Signed: Mani Ignacio MD at 13:12 EST ,
== END | disposition home or self-care (01) ==
LOC: OPBI 11:52
PROVIDERS: PCP Internal Medicine; Referring Provider Internal Medicine; Visit Provider Internal Medicine
DX: Z12.31 Encounter for screening mammogram for malignant neoplasm of breast (principal)
CPT/HCPCS: 77063; 77067

== ENCOUNTER → 2025-08-01 | Outpatient (CLI) | payer MEDICARE, OTHER, SELFPAY ==
--- OUTSIDE RECORDS SUMMARY | 2025-08-01 07:37 | XMS RPT_ITS | CCD ---
Author Organization [facility] Care Team Providers Care Data Quality Consultant Name Role Phone Jennifer Romeo Unavailable Cailin, Krystle Unavailable Unavailable Unavailable Unavailable Gravius, Minoo Unavailable Unavailable Riley Lopez Unavailable Unavailable Tanphaichitr - Kimbrough, Alfa Unavailable Ciesa, Parvin Unavailable Jennifer Romeo DO Unavailable [phone] Tanphaichitr - Kimbrough, Alfa Unavailable Riley Lopez LPN Unavailable Unavailable Ciesa LUIS CARLOS, Parvin Unavailable Cailin RICHARDSON, Krystle Unavailable Unavailable Unavailable Unavailable Slatish TROYN, Daisha Unavailable Unavailable Gravius JASMIN, Minoo Unavailable Unavailable OusmaneAutumn cerna DOhleen Unavailable Patrice ALDRIDGE, Delmi Unavailable Dr. Russell Keith Unavailable Eden JASMIN, Kayela Unavailable Unavailable Marisol Suazo MA Unavailable Unavailable Dr. Jennifer Romeo Primary Care Provider Dr. Christiano Odonnell Attending Provider [phone] Miguel Mullen Unavailable Marjorie Lee MA Unavailable Unavailable Jennifer Romeo DO Attending Unavailable Jennifer Romeo DO Referring Unavailable Jennifer Romeo DO Consulting Unavailable EMILY Alejandra LPN Unavailable Unavailable Dr. Jennifer Romeo Primary Care Provider [phone] Dr. Aime Martin Attending Provider Dr. Kade Barnett Referring Provider Dr. Kade Barnett Admit Provider Dr. Kade Barnett Other Provider [phone] Bonnie Lindsey Attending Provider Dr. Bonnie Lindsey Other Provider Ousmane, Jennifer Referring Unavailable Ousmane, Jennifer Primary Care Unavailable Ousmane, Jennifer Attending Unavailable Raghunathan, Ne Na Attending Unavaila ble Raghunathan, Ne Na Referring Unavaila ble Ousmane, Jennifer Primary Care Unavailable Ousmane, Jennifer Referring Unavailable Ousmane, Jennifer Primary Care Unavailable Ousmane, Jennifer Attending Unavailable Julianne, Chilton Attending Unavailable Ousmane, Jennifer Primary Care Unavailable Ousmane, Jennifer Primary Care Unavailable Julianne, Chilton Attending Unavailable Julianne, Bandar Referring Unavailable Allergies Allergy Classification Reported Allergen(s) Allergy Type Date of Onset Reaction(s) Facility Latex (3 sources) Latex; Translations: [Latex] Substance Allergy Rash [facility] Work Phone: Penicillins (antibiotic) (3 sources) Penicillins; Translations: [Penicillins] Drug Allergy [facility] Work Phone: (20 sources) Latex; Translations: [Latex] Allergy to substance (finding) 01-26-20 24 Rash [facility] Work Phone: (20 sources) Penicillins; Translations: [Penicillins] Allergy to substance (finding) 06-23-20 17 Rash [facility] Work Phone: (20 sources) Erythromycin *MACROLIDES*; Translations: [Erythromycin *MACROLIDES*] Allergy to drug (finding) [facility] Work Phone: (8 sources) Azithromycin Drug Allergy 06-23-20 17 Nausea/Vom/Penelope rrhea [facility] (8 sources) Naproxen Drug Allergy 06-23-20 17 Unknown, Swelling [facility] (6 sources) tiZANidine Drug Allergy [facility] Work Phone: Comment on above: rash (4 sources) Adhesive Tape; Translations: [adhesive tape] Propensity to adverse reactions 01-26-20 Itching [facility] (3 sources) Erythromycin Drug Allergy 01-26-20 Nausea/Vom/Penelope [facility] (3 sources) Garlic preparation Drug Allergy 01-26-20 Nausea/Vom/Penelope [facility] (3 sources) Lactose Drug Allergy 01-26-20 Nausea/Vom/Penelope [facility] (3 sources) Fish Containing Products Propensity to adverse reactions 01-26-20 Diarrhea [facility] (1 source) Azithromycin Drug Allergy 05-20-20 [facility] (1 source) Erythromycin Drug Allergy 05-20-20 [facility] (1 source) Garlic preparation Drug Allergy 05-20-20 [facility] (1 source) Lactose Drug Allergy 05-20-20 [facility] (1 source) Naproxen Drug Allergy 05-20-20 [facility] (1 source) Fish Containing Products Drug allergy (disorder) 05-20-20 [facility] Medications Current Medications Medication Drug Class(es) Dates Sig (Normalized) Sig (Original) acetaminophen 500 mg oral tablet (2 sources) Start: 02-22-2024 take 3000 mg by mouth every eight hours Acetaminophen Active 1000 MG PO EVERY 8 HOURS 84 February 22, 2024 12:00am Do not take more than 3000 mg Tylenol in a 24-hour period. Antiarthritic Combination No.2 (Glucosamine-Chondro itin) 900 MG tablet (8 sources) Start: 11-13-2017 take 1 tablet by mouth once daily Antiarthritic Combination No.2 (Glucosamine-Chondr oitin) 900 MG tablet Active 900 MG PO DAILY November 13, 2017 3:01pm Start: 11-13-2017 take 1 tablet by joo th once daily Antiarthritic Combination No.2 (Glucosamine-Chondroitin) 900 MG tablet Active 900 MG PO DAILY November 13, 2017 1:00am Start: 11-13-2017 take 1 tablet by joo th once daily Antiarthritic Combination No.2 (Glucosamine-Chondroitin) 900 MG tablet Active 900 MG PO DAILY November 13, 2017 12:00am aspirin 81 mg chewable tablet (2 sources) Platelet Aggregation Inhibitor, Nonsteroidal Anti-inflammatory Drug Start: 02-22-2024 take 81 mg by mouth twice daily Aspirin Active 81 MG PO TWICE A DAY February 22, 2024 12:00am Take 81 mg aspirin twice daily for 4 weeks postoperatively for DVT prophylaxis. biotin 1 mg oral capsule (20 sources) Start: 11-13-2017 take 1 mg by mouth once daily Biotin Active 1 MG PO DAILY November 13, 2017 1:00am calcium carbonate 1500 mg oral tablet (2 sources) Start: 02-21-2024 take 1 tablet by mouth once daily Calcium Carbonate (Calcium 600) 600 mg calcium (1,500 mg) tablet Active 600 MG PO DAILY February 21, 2024 12:00am celecoxib 100 mg oral capsule (3 sources) Nonsteroidal Anti-inflammatory Drug Start: 01-26-2024 take 100 mg by mouth twice daily Celecoxib Active 100 MG PO TWICE A DAY January 26, 2024 1:00am cholecalciferol 0.025 mg oral capsule (20 sources) Vitamin D Start: 11-13-2017 take 1 capsule by mouth once daily Cholecalciferol (Vitamin D3) (Vitamin D3) 1,000 UNIT capsule Active 1000 UNIT PO DAILY November 13, 2017 1:00am take 1 capsule by mouth once Vit bateman D 50 MCG (2000 UT) Oral Capsule (50 MCG (2000 UT)) Active docusate sodium 50 mg / sennosides, jail 8.6 mg oral tablet (2 sources) Start: 02-22-2024 Sennosides-Docusate Sodium (Stool Softener-Stimulant Laxat) 8.6-50 mg Tablet Active 2 TABLET PO TWICE A DAY 12 February 22, 2024 12:00am Take until first bowel movement, then as needed famotidine 20 mg oral tablet (2 sources) Histamine-2 Receptor Antagonist Start: 02-22-2024 take 20 mg by mouth once daily Famotidine Active 20 MG PO DAILY February 22, 2024 12:00am fluticasone propionate 0.05 mg/actuat metered dose nasal spray (8 sources) Corticosteroid Start: 11-13-2017 Fluticasone Propionate Active 2 SPRAY INTRANASAL DAILY November 13, 2017 1:00am L.Acidoph, Paracasei,B. Lactis (8 sources) Start: 11-13-2017 L.Acidoph, Paracasei,B. Lactis Active 1 EACH PO DAILY November 13, 2017 3:01pm Start: 11-13-2017 Newton Vides acasei,B. Lactis Active 1 EACH PO DAILY November 13, 2017 1:00am Start: 11-13-2017 Newton Vides acasei,B. Lactis Active 1 EACH PO DAILY November 13, 2017 12:00am [place]-3 Fatty Acids (8 sources) Start: 11-13-2017 take 1000 mg by mout h once daily [place]-3 Fatty Acids Active 1000 MG PO DAILY November 13, 2017 3:01pm Start: 11-13-2017 take 1000 mg by mouth once beverly ly [place]-3 Fatty Acids Active 1000 MG PO DAILY November 13, 2017 1:00am Start: 11-13-2017 take 1000 mg by mouth once beverly ly [place]-3 Fatty Acids Active 1000 MG PO DAILY November 13, 2017 12:00am oxyCODONE hydrochloride 5 mg oral tablet (2 sources) Opioid Agonist Start: 02-22-2024 take 5-10 mg by mouth every four hours as needed Oxycodone Active 5 - 10 MG PO EVERY 4 HOURS NEEDED 42 7 February 22, 2024 Completed/Discontinued Medications Medication Drug Class(es) Dates Sig (Normalized) Sig (Original) azithromycin 250 mg oral tablet (17 sources) Macrolide Antimicrobial Start: 11-17-2022 End: 12-01-2022 take 1 tablet by mouth once daily Zithromax Z-Judah 250 mg oral tablet tad tablet qd for 0 days Quantity: 1 {Packet} Refills: 0 Ordered: 01-Dec-2022 Benjamin Vazquez CMA Start : 17-Nov-2022 End : 01-Dec-2022 Inactive Calcium-Vitamin D Oral Tablet (20 sources) Calcium-Vitamin D Oral Tablet (600-125 MG-IU) Active diphenhydramine-zohaib taminophen (2 sources) Start: 02-21-2024 End: 02-22-2024 take 1 tablet by mouth at bedtime diphenhydramine-ac etaminophen Discontinued 1 TABLET PO AT BEDTIME February 21, 2024 12:00am February 22, 2024 10:07am Glucosamine Chondr 500 Complex Oral Capsule (20 sources) Glucosamine [address] 500 Complex Oral Capsule Active ivermectin 10 mg/ml topical cream (20 sources) Antiparasitic, Pediculicide Soolantra 1 % External Cream (1 %) Inactive Comments: ivermectin cream Comment on above: ivermectin cream meloxicam 15 mg oral tablet (5 sources) Nonsteroidal Anti-inflammatory Drug Start: 03-13-2023 End: 09-14-2023 meloxicam 15 mg oral tablet 1 (one) tablet As needed for 0 days Quantity: 30 {Tablet} Refills: 0 Ordered: 14-Sep-2023 EMILY Alejandra LPN Start : 13-Mar-2023 End : 14-Sep-2023 Inactive Comments: Medication taken as needed. Comment on above: Medication taken as needed. minoxidil 20 mg/ml topical solution (20 sources) Arteriolar Vasodilator Minoxidil 2 % External Solution (2 %) Active nitrofurantoin, macrocrystals 25 mg / nitrofurantoin, monohydrate 75 mg oral capsule (20 sources) Nitrofuran Antibacterial Start: 07-20-2022 End: 07-25-2022 take 1 capsule by mouth twice daily Macrobid 100 MG Oral Capsule 1 (one) Capsule one tab bid for 5 days Quantity: 10 {Capsule} Refills: 0 Ordered: 20-Jul-2022 Patrice LUIS CARLOSDelmi Start : 20-Jul-2022 End : 25-Jul-2022 Inactive Start: 03-09-2021 End: 03-16-2021 take 1 capsule by mouth twice daily Macrobid 100 MG Oral Capsule 1 (one) Capsule bid for 7 days Quantity: 14 {Capsule} Refills: 0 Ordered: 09-Mar-2021 OndinaDinorah jones Start : 09-Mar-2021 End : 16-Mar-2021 Inactive Oldenburg 3 340 MG Oral Capsule Delayed Release (20 sources) Oldenburg 3 340 MG O ral Capsule Delayed Release (340 MG) Active phenazopyridine hydrochloride 100 mg oral tablet (20 sources) Start: 2020 End: 2020 take 1 tablet by mouth three times daily Pyridium 100 MG Oral Tablet 1 (one) Tablet tid for 2 days Quantity: 6 {Tablet} Refills: 0 Ordered: 09-Mar-2021 OndinaDinorah jones Start : 09-Mar-2021 End : 11-Mar-2021 Inactive Prevagen 10 MG Oral Capsule (20 sources) take 2 capsules by mouth once daily Prevagen 10 MG Oral Capsule 20mg daily (10 MG) Active saccharomyces boulardii 250 mg oral capsule (20 sources) Probiotic 250 MG Oral Capsule (250 MG) Active tacrolimus 0.001 mg/mg topical ointment (20 sources) Calcineurin Inhibitor Immunosuppressant Start: 2019 End: 2019 Tacrolimus 0.1 % External Ointment apply Application qd/prn bid for 0 days Quantity: 15 {Gram} Refills: 0 Ordered: 06-Aug-2020 Amy CASTELLANOS Minoo Start : 27-Apr-2020 End : 06-Aug-2020 Inactive Tacrolimus 0.1 % External Cream (20 sources) Tacrolimus 0.1 % External Cream (0.1 %) Active Comments: dr barajas Comment on above: dr barajas tiZANidine 4 mg oral tablet (7 sources) Central alpha-2 Adrenergic Agonist Start: 2022 End: 2022 tiZANidine 4 mg oral tablet 1 (one) tablet as needed for 28 days Quantity: 28 {Tablet} Refills: 0 Ordered: 24-Jan-2023 Marjorie Lee MA Start : 24-Jan-2023 End : 21-Feb-2023 Inactive Comments: Medication taken as needed. Comment on above: Medication taken as needed. triamcinolone acetonide 0.25 mg/ml topical cream (20 sources) Corticosteroid Triamcinolone Acetonide 0.025 % External Cream (0.025 %) Active Comments: for ears from ENT Comment on above: for ears from ENT zinc gluconate 30 mg oral tablet (20 sources) take 1 tablet by mouth once daily Zinc 30 MG Oral Tablet 1 daily (30 MG) Inactive 100 ml zoledronic acid 0.05 mg/ml injection (20 sources) Bisphosphonate Reclast 5 MG/100 ML Intravenous Solution (5 MG/100ML) Inactive Problems Active Problems Problem Classification Problem Date Documented Date Episodic/Chronic Allergic reactions (20 sources) Eczema; Translations: [Eczema] Resolved: 3 04-27-2020 Episodic Diseases of mouth; excluding dental (20 sources) Angular cheilitis; Translations: [Angular cheilitis] 04-27-2020 Episodic Disorders of lipid metabolism (20 sources) Hypercholesterolemia; Translations: [Hypercholesteremia] Onset: 5 11-08-2021 Chronic Comment on above: improved with no mitch armin -walking more and more oatcerail like cheerios with oat flour improved with no mitch armin -walking more and more oatcerail like cheerios with oat flourwill work on above Essential hypertension (20 sources) Hypertensive disorder; Translations: [HTN (hypertension)] 01-22-2021 Chronic Comment on above: Has apt March 30 with Brandi pt will exercise mor e and see if reduces bp over next few month Genitourinary symptoms and ill-defined conditions (20 sources) Urinary frequency; Translations: [Increased frequency of urination] Resolved: 3 03-09-2021 Episodic Comment on above: she is symptomatic s o will treat with macrobid, had last 02/2021 for E. coli and tolerated well.urine in office + for leuks (mod) and nitrites. Immunizations and screening for infectious disease (20 sources) Requires vaccination; Translations: [Need for pneumococcal vaccination] Resolved: 3 03-09-2021 Episodic Nutritional deficiencies (20 sources) Vitamin D deficiency; Translations: [Vitamin D deficiency] 11-08-2021 Chronic Comment on above: will increase to 2k will increase to 2k- stable Open wounds of head; neck; and trunk (8 sources) Scalp laceration; Translations: [Laceration without foreign body of scalp, initial encounter] 06-24-2017 Episodic Osteoarthritis (20 sources) Arthritis; Translations: [Arthritis] 12-22-2022 Chronic Comment on above: knee -left with smal l effusion Osteoporosis (20 sources) Disuse osteoporosis; Translations: [Osteoporosis, disuse] Onset: 4 04-27-2020 Chronic Comment on above: getting reclast inj from dr Pitts getting reclast inj from dr Raotopped after parathyriod surgery -- now osteopenia -- pt doesnt want meds -- so will cont ca++ , vit D and walking Other connective tissue disease (2 sources) History of total knee arthroplasty; Translations: [Presence of right artificial knee joint] 02-22-2024 Chronic Other connective tissue disease (2 sources) Presence of right artificial knee joint; Translations: [Knee joint replacement] 02-22-2024 Chronic Other connective tissue disease (20 sources) Pain of left calf; Translations: [Pain of left calf] 12-01-2022 Episodic Other connective tissue disease (20 sources) Synovial cyst of left popliteal space; Translations: [Roque cyst, left] 12-22-2022 Episodic Other endocrine disorders (20 sources) Hyperparathyroidism; Translations: [Hyperparathyroidism] 04-27-2020 Chronic Comment on above: sched to be resected 05/05/2020 sched to be resected 05/05/2020s/p removal partial and ca++ has normalized Other gastrointestinal disorders (20 sources) Irritable bowel syndrome; Translations: [IBS (irritable bowel syndrome)] 04-27-2020 Chronic Comment on above: fiber, stress managm ent Other inflammatory condition of skin (20 sources) Perioral dermatitis; Translations: [POD (perioral dermatitis)] 04-27-2020 Chronic Other nervous system disorders (20 sources) Paresthesia; Translations: [Paresthesia] 06-17-2020 Episodic Other non-traumatic joint disorders (8 sources) Pain in right knee; Translations: [Acute pain of right knee] 04-29-2021 Episodic Other skin disorders (20 sources) Mass of lower limb; Translations: [Mass of lower extremity, left] Resolved: 3 12-01-2022 Episodic Comment on above: no mass seen -- fat ? soft tissue swelling? Other upper respiratory infections (20 sources) Sinusitis; Translations: [Sinusitis] Resolved: 3 11-17-2022 Chronic Residual codes; unclassified (20 sources) Postmenopausal state; Translations: [Postmenopausal (Renamed from Postmenopausal status)] 08-06-2020 Episodic Comment on above: last dexa 2020 Residual codes; unclassified (20 sources) Body mass index 20-24 - normal; Translations: [BMI 21.0-21.9, adult] Resolved: 3 03-09-2021 Episodic Residual codes; unclassified (20 sources) Non-smoker; Translations: [Non-smoker] 03-09-2021 Episodic Residual codes; unclassified (4 sources) Influenza vaccination declined; Translations: [Influenza vaccination declined] 09-14-2023 Episodic Spondylosis; intervertebral disc disorders; other back problems (20 sources) Sciatica; Translations: [Sciatica, left side] 11-17-2022 Episodic Comment on above: - x-ray done / faili ng chiro care - had inj iin low back in past - failed nsaid includijng pred Thyroid disorders (20 sources) Hypothyroidism; Translations: [Hypothyroid] Resolved: 11-11-2020 Chronic Unclassified (20 sources) Patient encounter status; Translations: [Encounter for screening mammogram for breast cancer (Renamed from Screening mammogram, encounter for)] 04-27-2020 Comment on above: last scope 2016 due in 10 yr Unclassified (20 sources) Osteoporosis, disuse Unclassified (20 sources) Unclassified (20 sources) Non-smoker; Translations: [Non-smoker] 08-06-2020 Unclassified (20 sources) Encounter for annual general medical examination with abnormal findings in adult Unclassified (20 sources) Postmenopausal (Renamed from Postmenopausal status) Unclassified (20 sources) Colon cancer screening (Renamed from Encounter for screening for malignant neoplasm of colon) Unclassified (20 sources) BMI 21.0-21.9, adult Unclassified (13 sources) Need for pneumococcal vaccination Unclassified (9 sources) Hypercholesteremia Unclassified (5 sources) Encounter for hepatitis C virus screening test for high risk patient Past or Other Problems Problem Classification Problem Date Documented Da te Episodic/Chronic Headache; including migraine (20 sources) Headache; including migraine Other screening for suspected conditions (not mental disorders or infectious disease) (20 sources) Thyroid hormone tests abnormal; Translations: [Abnormal TSH] Onset: 11-07-2024 Resolved: 09-14-2023 08-06-2020 Episodic Comment on above: last scope 2016 due in 10 yr last scope 2016 due in 10 yrcologard 11/16 Pneumonia (except that caused by tuberculosis or sexually transmitted disease) (20 sources) Pneumonia (except that caused by tuberculosis or sexually transmitted disease) Residual codes; unclassified (15 sources) Requires vaccination; Translations: [Need for pneumococcal vaccination] 09-08-2020 Unclassified (20 sources) Encounter for screening for lipid disorder; Translations: [Patient encounter status] 04-27-2020 Unclassified (20 sources) POD (perioral dermatitis) Unclassified (20 sources) Body mass index 20-24 - normal; Translations: [BMI 22.0-22.9, adult] 08-06-2020 Unclassified (20 sources) Abnormal TSH Results Test Name Value Interpretation Reference Range Facility Coronary Angiography CTon Coronary Angiography CT [facility] Imaging Services [address] [place] [address] 05/21/25 1919 MR#: [id number] Acct: [id number] Name: NAVEEN FUENTES Rep #: [id number] : 1950 74 From: Bandar Whitaker MD PCP: Dr. Jennifer Romeo DO Status:REG REF Y Location: CT Calcium Scoring Date of Study:: 05/21/25 Indications Indications: Family history Coronary Calcium Scoring: High-resolution Computed Tomographic imaging of the chest was performed on [05/21/2025], with particular attention paid to the coronary arteries. Images from the examination were analyzed for the presence and extent of coronary artery calcification , using coronary calcium quantification software. The patient tolerated the procedure well and there were no complications. The results of the coronary calcification analysis are provided below. Findings Coronary Artery Left Main (LM): 0 Left Anterior Descending (LAD): 14 Left Circumflex (LCX): 0 Right Coronary Artery (RCA): 6.25 Total Agatston Score: 20.25 Percentile Rankin to 50th percentile Calcium Scoring Interpretation: Different methods to categorize the overall amount of coronary plaque. Overall amount CAC SIS Visual of coronary plaque P1 Mild -100 <2 1-2 vessels with mild amount of plaque P2 Moderate 101-300 3-4 1-2 vessels with moderate amount, 3 vessels with mild amount of plaque P3 Severe 301-999 5-7 3 vessels with moderate amount, 1 vessel with severe amount of plaque P4 Extensive >1000 >8 2-3 vessels with severe amount of plaque Calcium Score: Mild: 1-2 vessels w/mild amount of plaque Conclusion: Mild atherosclerotic plaquing only. 05/21/251919 Date Bandar Whitaker MD Cosigner Signature (if applicable): Date CC: Dr. Bandar Whitaker MD; Dr. Jennifer Romeo DO Signed Normal [facility] Limited Chest CT Cardiac Onl yon 05-21-[address] Cardiac Only [facility] Imaging Services [address] [place] [address] Cardiac Only MR#: [id number] Acct: [id number] Name: NAVEEN FUENTES Rep #: [id number] : 1950 F 74 From: Mani lomas MD PCP: Dr. Jennifer Romeo DO Status: REG REF Study: Limited Chest CT Cardiac Only Date of Exam: Exam# [id number] Ordering Dr: Jennifer Romeo DO PROCEDURE: LIMITED CHEST CT CARDIAC ONLY 05/21/2025 REASON FOR EXAM: FAMILIAL HYPERCHOLESTEROLEMIA TECHNIQUE: LIMITED CHEST CT CARDIAC ONLY CONTRAST: None One or more dose reduction techniques were used (e.g., Automated exposure control, adjustment of the mA and/or kV according to patient size, use of iterative reconstruction technique). RADIATION DOSE SUMMARY: CTDlvol: 12.19 mGy DLP: 219.42 mGycm COMPARISON: None FINDINGS: Coronary artery calcification. Line calcified left hilar and subcarinal lymph nodes. No pulmonary abnormality is seen. CT/Limited Chest CT Cardiac Only IMPRESSION: Coronary artery calcification. Reading Location: [facility] CC: Dr. Jennifer Romeo DO Director Of Maternity Services: Signed Normal [facility] S-I Jts 3 or More Viewson S-I Jts 3 or More Views [facility] [address] [place] [address] S-I Jts 3 or More Views MR#: [id number] Acct: [id number] Name: NAVEEN FUENTES Rep #: [id number] : 1950 F 74 From: David Lindsey MD PCP: Dr. Jennifer Romeo DO Status: DEP AMB Study: S-I Jts 3 or More Views Date of Exam: 10/29/24 Exam# [id number] Ordering Dr: Jennifer Romeo DO [id number] STUDY: X-RAY - SACROILIAC JOINTS REASON FOR EXAM: Female, 74 years old. SACROILIAC INFLAMMATION -- ATTN SI JOINTS TECHNIQUE: 3 views of the sacroiliac joints were obtained. COMPARISON: None. FINDINGS: Normal bilateral sacroiliac joints. Normal visualized sacral ala and sacrum. There is no demonstrated fracture or destructive osseous process. Normal visualized iliac bones. Normal visualized soft tissue structures. RAD/S-I Jts 3 or More Views IMPRESSION: Normal x-ray examination of the bilateral sacroiliac joints. Electronically Signed: David Lindsey MD at 16:20 EST Reading Location ID and State: [address] [place] [address] , Service support , CC: Dr. Jennifer Romeo DO Director Of Maternity Services: Signed Normal [facility] SCRN MAMM (CAD)W/JOEY BILATo n 10-10-2024 SCRN MAMM (CAD)W/JOEY BILAT [facility] Imaging Services [address] [place] [address] [phone] SCRN MAMM (CAD)W/JOEY BILAT MR#: [id number] Acct: [id number] Name: NAVEEN FUENTES Rep #: [id number] : 1950 F 74 From: Mani lomas MD PCP: Dr. Jennifer Romeo DO Status: REG CLI Study: SCRN MAMM (CAD)W/JOEY BILAT Date of Exam: 09/27 03/20 Exam# [id number] Ordering Dr: Jennifer Romeo DO [id number] MAMMOGRAPHY - BILATERAL SCREENING REASON FOR EXAM: Female, 74 years old. Routine annual screening examination. PERTINENT HISTORY: Non-contributory. TECHNIQUE: Digital bilateral breast joey (3D mammographic acquisition) in the CC and MLO projections. 2-D mediolateral oblique (MLO) and craniocaudad (CC) views of both breasts were obtained. CAD: Full Field Digital Mammography with Computer Added Detection was performed. COMPARISON: Comparison is made with prior study October 09, 2023 and October 03, 2022. FINDINGS: Breast Composition: The breasts are extremely dense, which lowers the sensitivity of mammography. There are no dominant masses or suspicious calcifications. No other significant abnormalities are identified. There has been no significant change since the prior study. BI/SCRN MAMM (CAD)W/JOEY BILAT IMPRESSION: Stable bilateral screening mammogram. Yearly follow-up mammogram recommended. (A) ASSESSMENT CATEGORY: BIRADS Category 1: Negative. A letter regarding these results will be sent to the patient by the facility within 30 days. Approximately 10% of breast cancers are not detected by mammography. A normal mammogram should not delay biopsy of a clinically suspicious abnormality. [id number] Electronically Signed: Mani Ignacoi MD at 13:12 EST , CC: Dr. Jennifer Romeo DO Director Of Maternity Services: Signed [facility] N-Telopeptide,Ur X Linkon INTERPRET.GUIDE [facility] Comment on above: Result Comment: The N-telopeptide and Creatinine are used to calculate the N-telo/Creat. Ratio which is referred to as NTx. Suggested guidelines for the clinical use of NTx are as follows: 1. Menopausal Women not on Hormone Replacement Therapy (HRT): Women with a baseline NTx value >38 are at significant risk for a decrease in bone mineral density (BMD) after 1 year compared to women on HRT. The probability of a decline in BMD increases with NTx value as follows: (1): Baseline NTx Probability of Decrease in BMD 18- 38 1.4 p=0.28 38- 51 2.5 p=0.03 51- 67 3.8 p=0.0006 67-188 17.3 p=0.0001 2. Menopausal Women Receiving Antiresorptive Therapy: The probability that treatment is effective after three months is increased when the measured NTx value is or=30% from baseline.[1] 3. Patients with Paget's Disease of Bone: The probability that treatment is effective after one month is increased when the measured NTx value is within the reference range, or NTx has decreased >or=30% from baseline.[2] 1. Lissette CH, Paez NH, Remington GS, et al. Am J Med, 102:29-37,1997. (1):M757, 1996. 2. Bone H, Ignacia J, et al. J Bone Min Res.11(1):M757,1995 Performed at: [facility] [address] [id number] [employer] Supervisor: Ludy De León MD, Phone: [phone] Performed at: [facility] Lab[address] [id number] [employer] Supervisor: Ky Carrion PhD, Phone: [phone] Performed By: #### L 3620.0100 #### [facility] Laboratory [address] [place] [address], [address] Basophil percentageOrdered B y: Kade Barnett on 02-22-2024 Chloride [Moles/Vol] 105 mmol/L 98-107 [facility] Glucose [Mass/Vol] 111 mg/dL 74-106 [facility] Comment on above: Fasting Glucose resu lt from 100 to 125 mg/dL suggests IMPAIRED HOMEOSTASIS per A.D.A. criteria. Hemoglobin (Bld) [Mass/Vol] 11.0 g/dL 12.0-15.0 [facility] Potassium [Moles/Vol] 3.8 mmol/L 3.5-5.1 [facility] Sodium [Moles/Vol] 136 mmol/L 136-145 [facility] WBC (Bld) [#/Vol] 9.1 10*3/uL 4.4-11.0 [facility] Determination of erythrocyte mean corpuscular volume (MCV)Ordered By: Kade Barnett on 02-22-2024 MCV (RBC) [Entitic vol] 89.9 fL 81-99 [facility] Erythrocyte distribution wid th ratioOrdered By: Kade Barnett on 02-22-2024 Erythrocyte distribution width (RBC) [Ratio] 12.9 % 11.6-14.6 [facility] Erythrocyte distribution wid th standard deviationOrdered By: Kade Barnett on 02-22-2024 Erythrocyte distribution width (RBC) [Entitic vol] 42.5 fL 35.1-43.9 [facility] Hematocrit Auto (Bld) [Volum e fraction]Ordered By: Kade Barnett on 02-22-2024 Hematocrit (Bld) [Volume fraction] 33.8 % 37-47 [facility] Laboratory - Chemistry and C hemistry - challengeOrdered By: Kade Barnett on 02-22-2024 CO2 [Moles/Vol] 26.0 mmol/L 21.0-32.0 [facility] Urea nitrogen/Creatinine [Mass ratio] 19.3 mg/mg 10-20 [facility] Laboratory - Hematology and Cell countsOrdered By: Kade Barnett on 02-22-2024 MCH (RBC) [Entitic mass] 29.3 pg 27.0-32.0 [facility] MCHC (RBC) [Mass/Vol] 32.5 g/dL 32-36 [facility] Platelet mean volume (Bld) [Entitic vol] 10.3 fL 6.2-12.0 [facility] Platelets (Bld) [#/Vol] 297 10*3/uL 150-450 [facility] No Panel InformationOrdered By: Kade Barnett on 02-22-2024 Estimated Creatinine Clearance Calc 47.26 ml/min [facility] Estimated GFR (MDRD) Amer 93 mL/min >60 [facility] Comment on above: GFR Calc Estimated GFR (MDRD) Non-Af Amer 77 mL/min >60 [facility] Comment on above: Non- GFR Calc RBC Auto (Bld) [#/Vol]Ordere d By: Kade Barnett on 02-22-2024 RBC (Bld) [#/Vol] 3.76 10*6/uL 4.2-5.4 [facility] Serum or plasma calcium keisha urement (mass/volume)Ordered By: Kade Barnett on 02-22-2024 Calcium [Mass/Vol] 8.8 mg/dL 8.5-10.1 [facility] Serum or plasma creatinine m easurement (mass/volume)Ordered By: Kade Barnett on 02-22-2024 Creatinine [Mass/Vol] 0.78 mg/dL 0.55-1.02 [facility] Comment on above: The validity of the calculated GFR & GFRAA in patients over 70 years has not been determined. Clinical correlation is essential. Serum or plasma urea nitroge n measurement (mass/volume)Ordered By: Kade Barnett on 02-22-2024 Urea nitrogen [Mass/Vol] 15 mg/dL 7-18 [facility] Thin prep Papanicolaou smear with manual screeningOrdered By: Kade Barnett on 02-22-2024 Thin prep Papanicolaou smear with manual screening 5 5-15 [facility] Thin prep Papanicolaou smear with manual screeningOrdered By: Kade Barnett on 02-21-2024 Thin prep Papanicolaou smear with manual screening 155 mg/dL 74-106 [facility] Comment on above: MANAGEMENT OF PATIEN T CARE PER NURSING PROTOCOL Absolute lymphocyte countOrd ered By: Kade Barnett on 02-01-2024 Lymphocytes Auto (Unsp spec) [#/Vol] 1.79 10*3/uL 0.83-4.51 [facility] Activated partial thrombopla stin time (aPTT) in platelet poor plasma by coagulation aOrdered By: Santos Moss on 02-01-2024 aPTT Coag (PPP) [Time] 29.2 s 24.1-36.2 [facility] Automated lymphocyte count a s percentage of total leukocytesOrdered By: Kade Barnett on 02-01-2024 Lymphocytes/100 WBC Auto (Unsp spec) 30.6 % 19-41 [facility] Basophil percentageOrdered B y: Kade Barnett on 02-01-2024 Basophils/100 WBC (Bld) 0.9 % 0-1 [facility] Eosinophils/100 WBC (Bld) 3.2 % 0-5 [facility] Monocytes/100 WBC (Bld) 7.5 % 0-10 [facility] Neutrophils (Bld) [#/Vol] 3.4 10*3/uL 2.0-7.7 [facility] Neutrophils/100 WBC (Bld) 57.6 % 47-70 [facility] Basophil percentageOrdered B y: Santos Moss on 02-01-2024 Bilirubin [Mass/Vol] 0.30 mg/dL 0.20-1.00 [facility] Comment on above: For patients on eltr ombopag therapy, use of Dimension [place] TBIL is not recommended. Protein [Mass/Vol] 6.9 g/dL 6.4-8.2 [facility] Direct bilirubinOrdered By: Santos Moss on 02-01-2024 Bilirubin.direct [Mass/Vol] 0.09 mg/dL 0.00-0.30 [facility] Immature granulocytes/100 WB C Auto (Bld)Ordered By: Kade Barnett on 02-01-2024 Immature granulocytes/100 WBC (Bld) 0.200 % 0.0-0.9 [facility] Comment on above: IG% - Immature Granu locytes (promyelocytes, myelocytes and metamyelocytes) > 1% indicates that a LEFT SHIFT is Present. Laboratory - Chemistry and C hemistry - challengeOrdered By: Santos Moss on 02-01-2024 ALP [Catalytic activity/Vol] 65 U/L 45-117 [facility] ALT [Catalytic activity/Vol] 15 U/L 13-56 [facility] Globulin (S) [Mass/Vol] 3.3 g/dL 2.2-4.2 [facility] Magnesium [Mass/Vol] 2.2 mg/dL 1.6-2.6 [facility] Laboratory - CoagulationOrde red By: Santos Moss on 02-01-2024 INR Coag (Bld) [Relative time] 1.0 {INR} [facility] PT Coag (PPP) [Time] 12.8 s 11.7-14.9 [facility] Laboratory - Hematology and Cell countsOrdered By: Kade Barnett on 02-01-2024 Nucleated RBC/100 WBC (Bld) [Ratio] 0 % 0-5 [facility] No Panel InformationOrdered By: Kade Barnett on 02-01-2024 Nasal Screen MRSA/MSSA [facility] Thin prep Papanicolaou smear with manual screeningOrdered By: Kade Barnett on 02-01-2024 Thin prep Papanicolaou smear with manual screening 3.6 g/dL 3.2-5.0 [facility] Thin prep Papanicolaou smear with manual screeningOrdered By: Santos Moss on 02-01-2024 Thin prep Papanicolaou smear with manual screening 14 U/L 15-37 [facility] Basophil percentageOrdered B y: Jennifer Romeo on 11-29-2023 Basophil percentage < 1.0 mg/dL 0.55-1.02 [facility] Laboratory - Chemistry and C hemistry - challengeOrdered By: Jennifer Romeo on 11-29-2023 GFR/1.73 sq M.predicted among non-blacks MDRD (S/P/Bld) [Vol rate/Area] 57.0000 mL/min/{1.73_m2} >60 [facility] CALCIFIDIOL (56863) VIT D 25 Ordered By: Investment Fund Manager on 03-09-2023 25-hydroxyvitamin D [Mass/Vol] 73.1 ng/mL Normal 30.0-100.0 [facility]; [facility] Work Phone: Comment on above: Vitamin D deficiency has been defined by the [place] of[place] and an Endocrine Society practice guideline as alevel of serum 25-OH vitamin D less than 20 ng/mL (1,2).The Endocrine Society went on to further define vitamin Dinsufficiency as a level between 21 and 29 ng/mL (2).1. IOM ([place] of [employer]). 2010. Dietary reference intakes for calcium and D. [place]: The National Academies Press.2. Susana MF, Roque NC, Rosmery SANDERSON, et al. Evaluation, treatment, and prevention of vitamin D deficiency: an Endocrine Society clinical practice guideline. JCEM. 2010; 96(7):1911-30. PATIENT WAS FASTINGP ERFORMED BY: CB [facility] [id number] [address] RoadDublin [place] [id number] CBC W/AUTO DIFF WBC ([id number])O rdered By: Investment Fund Manager on 03-09-2023 Basophils (Bld) [#/Vol] 0.1 10*3/uL Normal 0.0-0.2 [facility]; [facility] Work Phone: Comment on above: PATIENT WAS FASTINGP ERFORMED BY: CB [facility] [id number] [address] RoadDublin [place] [id number]; OV 4/17 Basophils/100 WBC (Bld) 1 % Normal [facility]; [facility] Work Phone: Comment on above: PATIENT WAS FASTINGP ERFORMED BY: CB [facility] [id number] [address] RoadDublin [place] [id number]; OV 4/17 Eosinophils (Bld) [#/Vol] 0.1 10*3/uL Normal 0.0-0.4 [facility]; [facility] Work Phone: Comment on above: PATIENT WAS FASTINGP ERFORMED BY: CB [facility] [id number] [address] RoadDublin [place] [id number]; OV 4/17 Eosinophils/100 WBC (Bld) 3 % Normal [facility]; [facility] Work Phone: Comment on above: PATIENT WAS FASTINGP ERFORMED BY: CB [facility] [id number] [address]Dublin [place] [id number]; OV 4/17 Erythrocyte distribution width (RBC) [Ratio] 13.0 % Normal 11.7-15.4 [facility]; [facility] Work Phone: Comment on above: PATIENT WAS FASTINGP ERFORMED BY: CB [facility] Pazlmj5607 [address] RoadDublin [place] [id number]; OV 4/17 Hematocrit (Bld) [Volume fraction] 37.0 % Normal 34.0-46.6 [facility]; [facility] Work Phone: Comment on above: PATIENT WAS FASTINGP ERFORMED BY: CB [facility] Meohnf6489 [address] RoadDublin [place] [id number]; OV 4/17 Hemoglobin (Bld) [Mass/Vol] 12.5 g/dL Normal 11.1-15.9 [facility]; [facility] Work Phone: Comment on above: PATIENT WAS FASTINGP ERFORMED BY: CB [facility] Fglrsy1151 [address]Dublin [place] [id number]; OV 4/17 Immature granulocytes (Bld) [#/Vol] 0.0 10*3/uL Normal 0.0-0.1 [facility]; [facility] Work Phone: Comment on above: PATIENT WAS FASTINGP ERFORMED BY: CB [facility] [id number] [address]Dublin [place] [id number]; OV 4/17 Immature granulocytes/100 WBC (Bld) 0 % Normal [facility]; [facility] Work Phone: Comment on above: PATIENT WAS FASTINGP ERFORMED BY: CB [facility] Iycwzo2789 [address] RoadDublin [place] [id number]; OV 4/17 Lymphocytes (Bld) [#/Vol] 1.6 10*3/uL Normal 0.7-3.1 [facility]; [facility] Work Phone: Comment on above: PATIENT WAS FASTINGP ERFORMED BY: CB [facility] [id number] [address]Dublin [place] [id number]; OV 4/17 Lymphocytes/100 WBC (Bld) 37 % Normal [facility]; [facility] Work Phone: Comment on above: PATIENT WAS FASTINGP ERFORMED BY: CB [facility] [id number] [address]Dublin [place] [id number]; OV 4/17 MCH (RBC) [Entitic mass] 29.6 pg Normal 26.6-33.0 [facility]; [facility] Work Phone: Comment on above: PATIENT WAS FASTINGP ERFORMED BY: CB [facility] Brdymh2650 [address]Dublin [place] [id number]; OV 4/17 MCHC (RBC) [Mass/Vol] 33.8 g/dL Normal 31.5-35.7 [facility] prehensive [facility]; [facility] Work Phone: Comment on above: PATIENT WAS FASTINGP ERFORMED BY: CB [facility] [id number] [address]Dublin [place] [id number]; OV 4/17 MCV (RBC) [Entitic vol] 88 fL Normal 79-97 [facility]; [facility] Work Phone: Comment on above: PATIENT WAS FASTINGP ERFORMED BY: CB [facility] Swryum7078 [address]Dublin [place] [id number]; OV 4/17 Monocytes (Bld) [#/Vol] 0.4 10*3/uL Normal 0.1-0.9 [facility]; [facility] Work Phone: Comment on above: PATIENT WAS FASTINGP ERFORMED BY: CB [facility] [id number] [address]Dublin [place] [id number]; OV 4/17 Monocytes/100 WBC (Bld) 9 % Normal [facility]; [facility] Work Phone: Comment on above: PATIENT WAS FASTINGP ERFORMED BY: CB [facility] [id number] [address] [place] [id number]; OV 4/17 Neutrophils (Bld) [#/Vol] 2.1 10*3/uL Normal 1.4-7.0 [facility]; [facility] Work Phone: Comment on above: PATIENT WAS FASTINGP ERFORMED BY: CB [facility] Ybztbv6754 [address] [place] [id number]; OV 4/17 Neutrophils/100 WBC (Bld) 50 % Normal [facility]; [facility] Work Phone: Comment on above: PATIENT WAS FASTINGP ERFORMED BY: CB [facility] Hiqnbb7865 [address] RoadDublin [place] [id number]; OV 4/17 Platelets (Bld) [#/Vol] 343 10*3/uL Normal 150-450 [facility]; [facility] Work Phone: Comment on above: PATIENT WAS FASTINGP ERFORMED BY: CB [facility] Frmonq7962 [address] [place] [id number]; OV 4/17 RBC (Bld) [#/Vol] 4.22 10*6/uL Normal 3.77-5.28 [facility]; [facility] Work Phone: Comment on above: PATIENT WAS FASTINGP ERFORMED BY: CB [facility] Fadcmb0200 [address] [place] [id number]; OV 4/17 WBC (Bld) [#/Vol] 4.3 10*3/uL Normal 3.4-10.8 [facility]; [facility] Work Phone: Comment on above: PATIENT WAS FASTINGP ERFORMED BY: CB [facility] Aumzoq0318 [address] RoadDublin [place] [id number]; OV 4/17 LIPID PANEL ([id number])Ordered B y: Investment Fund Manager on 03-09-2023 Cholesterol [Mass/Vol] 253 mg/dL Abnormal 100-199 [facility]; [facility] Work Phone: Comment on above: PATIENT WAS FASTINGP ERFORMED BY: [facility] Ytyqck2561 [address] [place] [id number] Cholesterol in HDL [Mass/Vol] 85 mg/dL Normal [facility]; [facility] Work Phone: Comment on above: PATIENT WAS FASTINGP ERFORMED BY: CB [facility] Gnxyhl0578 [address] RoadDublin [place] [id number] Triglyceride [Mass/Vol] 72 mg/dL Normal 0-149 [facility]; [facility] Work Phone: Comment on above: PATIENT WAS FASTINGP ERFORMED BY: CB [facility] Ybekck4763 [address] RoadDublin [place] [id number] LIPID PANEL (04576) 12 mg/dL Normal 5-40 Compr ehensive [facility]; [facility] Work Phone: Comment on above: PATIENT WAS FASTINGP ERFORMED BY: BERNARD [facility] Tktxsl7725 [address] [facility]bl[facility] [place] [id number] LIPID PANEL (92551) 156 mg/dL Abnormal 0-99 [facility]; [facility] Work Phone: Comment on above: PATIENT WAS FASTINGP ERFORMED BY: BERNARD [facility] Bjelbj7631 [facility]Central [facility] Hospital [id number] LIPID PANEL (55771) 1.8 {ratio} Normal 0.0-3.2 [facility]; [facility] Work Phone: Comment on above: LDL/HDL Ratio Men Wo men 1/2 Avg.Risk 1.0 1.5 Avg.Risk 3.6 3.2 2X Avg.Risk 6.2 5.0 3X Avg.Risk 8.0 6.1 PATIENT WAS FASTINGP ERFORMED BY: BERNARD [facility] Azglpp2318 [address] [facility] [id number] METABOLIC PANEL, COMPREHENSI VE ([id number])Ordered By: Investment Fund Manager on 03-09-2023 Albumin [Mass/Vol] 4.3 g/dL Normal 3.7-4.7 [facility]; [facility] Work Phone: Comment on above: PATIENT WAS FASTINGP ERFORMED BY: BERNARD [facility] Rxhzkc[address] [facility] [place] [id number] Albumin/Globulin [Mass ratio] 2.0 {ratio} Normal 1.2-2.2 [facility]; [facility] Work Phone: Comment on above: PATIENT WAS FASTINGP ERFORMED BY: CB [facility] Btumeg[address] [facility] HospitalD[facility] [place] [id number] ALP [Catalytic activity/Vol] 62 U/L Normal 44-121 [facility]; [facility] Work Phone: Comment on above: PATIENT WAS FASTINGP ERFORMED BY: BERNARD [facility] Luneex4324 [address] [place] [id number] ALT [Catalytic activity/Vol] 11 U/L Normal 0-32 [facility]; [facility] Work Phone: Comment on above: PATIENT WAS FASTINGP ERFORMED BY: CB [facility] Twpasx0706 [address] RoadDublin [place] [id number] AST [Catalytic activity/Vol] 17 U/L Normal 0-40 [facility]; [facility] Work Phone: Comment on above: PATIENT WAS FASTINGP ERFORMED BY: CB [facility] Xnzzns1251 [address] [place] [id number] Bilirubin [Mass/Vol] 0.4 mg/dL Normal 0.0-1.2 Comp rehensive [facility]; [facility] Work Phone: Comment on above: PATIENT WAS FASTINGP ERFORMED BY: CB [facility] Pcbhrh4037 [address] RoadD[address] [place] [id number] Calcium [Mass/Vol] 9.4 mg/dL Normal 8.7-10.3 [facility]; [facility] Work Phone: Comment on above: PATIENT WAS FASTINGP ERFORMED BY: CB [facility] Uhmmzi5004 [address] [place] [id number] Chloride [Moles/Vol] 103 mmol/L Normal 96-106 [facility]; [facility] Work Phone: Comment on above: PATIENT WAS FASTINGP ERFORMED BY: CB [facility] Reyvku6744 [address] RoadD[address] [place] [id number] CO2 [Moles/Vol] 25 mmol/L Normal 20-29 [facility]; [facility] Work Phone: Comment on above: PATIENT WAS FASTINGP ERFORMED BY: CB [facility] Coydwl1886 [address] [place] [id number] Creatinine [Mass/Vol] 0.84 mg/dL Normal 0.57-1.00 [facility]; [facility] Work Phone: Comment on above: PATIENT WAS FASTINGP ERFORMED BY: CB [facility] Bsphui4711 [address]Dublin [place] [id number] GFR/1.73 sq M.predicted among non-blacks MDRD (S/P/Bld) [Vol rate/Area] 74 mL/min/{1.73_m2} Normal Com[facility]; [facility] Work Phone: Comment on above: PATIENT WAS FASTINGP ERFORMED BY: [facility] Yunwex9292 [address] [place] [id number] Globulin (S) [Mass/Vol] 2.2 g/dL Normal 1.5-4.5 [facility]; [facility] Work Phone: Comment on above: PATIENT WAS FASTINGP ERFORMED BY: [facility] Kmqkvj0268 [address] RoadDublin [place] [id number] Glucose [Mass/Vol] 91 mg/dL Normal 70-99 [facility]; [facility] Work Phone: Comment on above: PATIENT WAS FASTINGP ERFORMED BY: [facility] Ghvhak1686 [address] Roadblin [place] [id number] Potassium [Moles/Vol] 4.3 mmol/L Normal 3.5-5.2 [facility] prehensive [facility]; [facility] Work Phone: Comment on above: PATIENT WAS FASTINGP ERFORMED BY: [facility] [id number] [facility] HospitalD[facility] [place] [id number] Protein [Mass/Vol] 6.5 g/dL Normal 6.0-8.5 [facility]; [facility] Work Phone: Comment on above: PATIENT WAS FASTINGP ERFORMED BY: [facility] Ppnmoq05[address] [facility]bl[facility] [place] [id number] Sodium [Moles/Vol] 140 mmol/L Normal 134-144 [facility]; [facility] Work Phone: Comment on above: PATIENT WAS FASTINGP ERFORMED BY: [facility] Wispvl5218 [address]Dublin [place] [id number] Urea nitrogen [Mass/Vol] 22 mg/dL Normal 8-27 [facility]; [facility] Work Phone: Comment on above: PATIENT WAS FASTINGP ERFORMED BY: [employer] Lvmdjv2562 [facility] [id number] Urea nitrogen/Creatinine [Mass ratio] 26 mg/mg Normal 12-28 [facility]; [facility] Work Phone: Comment on above: PATIENT WAS FASTINGP ERFORMED BY: [employer] Fyctnl7013 [facility] [id number] TSH ([id number])Ordered By: [employer] Plastic Manager on 03-09-2023 TSH Qn 3.500 {uIU/mL} Normal 0.450-4.500 [facility]; [facility] Work Phone: Comment on above: PATIENT WAS FASTINGP ERFORMED BY: [facility] Sgxcem6826 [facility] [id number] URINE HEIDI CULTURE-IDENTIFICA TN ([id number])Ordered By: Investment Fund Manager on 07-20-2022 Bacteria identified Cx Nom (U) Final report Normal [facility]; [facility] Work Phone: Comment on above: PATIENT NOT FASTINGP ERFORMED BY: [facility] Jpftrx2541 [facility] [id number] Information: SRC: Bacteria identified Cx Nom (U) VIRIST Normal [facility]; [facility] Work Phone: Comment on above: Viridans streptococc us group1,000 Colonies/mLSusceptibility not normally performed on this organism. PATIENT NOT FASTINGP ERFORMED BY: [employer] Direct Sclqpe5181 [facility] [id number] Information: SRC: Urinalysis, Office ([id number])Or dered By: Daisha Urbano on 07-20-2022 Bilirubin Ql (U) ++ Abnormal Comprehe nsive Internal Medicine; [facility] Work Phone: Glucose Test strip (U) [Mass/Vol] Trace Normal [facility]; [facility] Work Phone: Hemoglobin Ql (U) Negative Normal Compreh ensive Internal Medicine; [facility] Work Phone: Ketones Ql (U) Negative Normal Comprehens nargis Internal Medicine; [facility] Work Phone: Leukocyte esterase Test strip Ql (U) Moderate Normal [facility]; [facility] Work Phone: Nitrite Ql (U) + Abnormal Comprehens nargis [facility]; [facility] Work Phone: pH (U) 6 [pH] Abnormal [facility]; [facility] Work Phone: Protein Ql (U) Negative Normal Comprehens nargis [facility]; [facility] Work Phone: Specific gravity (U) [Rel density] 1.010 1 Normal [facility]; [facility] Work Phone: Urobilinogen (24H U) [Mass/Time] 2 mg/dL Normal [facility]; [facility] Work Phone: CBC, PLATELETS & AUT DIFF ([id number])Ordered By: Investment Fund Manager on 03-22-2022 Basophils (Bld) [#/Vol] 0.0 10*3/uL Normal 0.0-0.2 [facility]; [facility] Work Phone: Comment on above: PATIENT WAS FASTINGP ERFORMED BY: BERNARD Latina Researchers NetworkCarolinas ContinueC[facility] [id number] Basophils/100 WBC (Bld) 1 % Normal [facility]; [facility] Work Phone: Comment on above: PATIENT WAS FASTINGP ERFORMED BY: BERNARD Tipser70 Viryd TechnologiesCarolinas ContinueCARE Hospital [facility] [id number] Eosinophils (Bld) [#/Vol] 0.1 10*3/uL Normal 0.0-0.4 [facility]; [facility] Work Phone: Comment on above: PATIENT WAS FASTINGP ERFORMED BY: Wish Upon A Hero70 Viryd TechnologiesCarolinas ContinueCARE [facility] [id number] Eosinophils/100 WBC (Bld) 1 % Normal [facility]; [facility] Work Phone: Comment on above: PATIENT WAS FASTINGP ERFORMED BY: ThinkrCarolinas [facility] [id number] Erythrocyte distribution width (RBC) [Ratio] 13.3 % Normal 11.7-15.4 [facility]; [facility] Work Phone: Comment on above: PATIENT WAS FASTINGP ERFORMED BY: BERNARD Kane Jiang6370 [facility] [id number] Hematocrit (Bld) [Volume fraction] 39.8 % Normal 34.0-46.6 [facility]; [facility] Work Phone: Comment on above: PATIENT WAS FASTINGP ERFORMED BY: BERNARD [facility] Epunri2118 [facility] [id number] Hemoglobin (Bld) [Mass/Vol] 12.9 g/dL Normal 11.1-15.9 [facility]; [facility] Work Phone: Comment on above: PATIENT WAS FASTINGP ERFORMED BY: BERNARD [facility] Qctqbu6358 [facility] [id number] Immature granulocytes (Bld) [#/Vol] 0.0 10*3/uL Normal 0.0-0.1 [facility]; [facility] Work Phone: Comment on above: PATIENT WAS FASTINGP ERFORMED BY: BERNARD Abdullahieileen CortezXpxsuu6284 [facility] [id number] Immature granulocytes/100 WBC (Bld) 0 % Normal [facility]; [facility] Work Phone: Comment on above: PATIENT WAS FASTINGP ERFORMED BY: BERNARD [facility] Xykkqs9872 [facility] [id number] Lymphocytes (Bld) [#/Vol] 2.0 10*3/uL Normal 0.7-3.1 [facility]; [facility] Work Phone: Comment on above: PATIENT WAS FASTINGP ERFORMED BY: BERNARD Abdullahi Jayulp9330 [facility] [id number] Lymphocytes/100 WBC (Bld) 27 % Normal [facility]; [facility] Work Phone: Comment on above: PATIENT WAS FASTINGP ERFORMED BY: BERNARD [facility] Nmnfsz7578 Jones RoadDublin [place] [id number] MCH (RBC) [Entitic mass] 28.5 pg Normal 26.6-33.0 [facility]; [facility] Work Phone: Comment on above: PATIENT WAS FASTINGP ERFORMED BY: [facility] Wgghsb6055 Jones RoadDublin [place] [id number] MCHC (RBC) [Mass/Vol] 32.4 g/dL Normal 31.5-35.7 [facility]; [facility] Work Phone: Comment on above: PATIENT WAS FASTINGP ERFORMED BY: [facility] Phsuyv3995 [address] RoadDublin [place] [id number] MCV (RBC) [Entitic vol] 88 fL Normal 79-97 [facility]; [facility] Work Phone: Comment on above: PATIENT WAS FASTINGP ERFORMED BY: [facility]6[address] RoadDublin [place] [id number] Monocytes (Bld) [#/Vol] 0.5 10*3/uL Normal 0.1-0.9 [facility]; [facility] Work Phone: Comment on above: PATIENT WAS FASTINGP ERFORMED BY: [facility] Ypjbjb9029 [address] RoadDublin [place] [id number] Monocytes/100 WBC (Bld) 8 % Normal [facility]; [facility] Work Phone: Comment on above: PATIENT WAS FASTINGP ERFORMED BY: [facility]6[address] RoadDublin [place] [id number] Neutrophils (Bld) [#/Vol] 4.6 10*3/uL Normal 1.4-7.0 [facility] Internal Medicine; [facility] Work Phone: Comment on above: PATIENT WAS FASTINGP ERFORMED BY: [facility] Zdhows7023 [address] RoadDublin [place] [id number] Neutrophils/100 WBC (Bld) 63 % Normal [facility]; [facility] Work Phone: Comment on above: PATIENT WAS FASTINGP ERFORMED BY: BERNARD [facility] Bygqgg0562 [address] RoadDublin [place] [id number] Platelets (Bld) [#/Vol] 364 10*3/uL Normal 150-450 [facility]; [facility] Work Phone: Comment on above: PATIENT WAS FASTINGP ERFORMED BY: CB [facility] Vmdkby4118 [address] RoadDublin [place] [id number] RBC (Bld) [#/Vol] 4.52 10*6/uL Normal 3.77-5.28 [facility] Internal Medicine; [facility] Work Phone: Comment on above: PATIENT WAS FASTINGP ERFORMED BY: CB [facility] Cftdgs8898 [address] RoadDublin [place] [id number] WBC (Bld) [#/Vol] 7.2 10*3/uL Normal 3.4-10.8 [facility] Internal Medicine; [facility] Work Phone: Comment on above: PATIENT WAS FASTINGP ERFORMED BY: BERNARD [facility] Rxnpit5639 [address] RoadDublin [place] [id number] LIPID PANEL ([id number])Ordered B y: Investment Fund Manager on 03-22-2022 Cholesterol [Mass/Vol] 242 mg/dL Abnormal 100-199 [facility] Internal Medicine; [facility] Work Phone: Comment on above: PATIENT WAS FASTINGP ERFORMED BY: BERNARD [facility] Coenry8160 [address] RoadDublin [place] [id number] Cholesterol in HDL [Mass/Vol] 80 mg/dL Normal [facility]; [facility] Work Phone: Comment on above: PATIENT WAS FASTINGP ERFORMED BY: CB [facility] Piximt7769 [address] RoadDublin [place] [id number] Triglyceride [Mass/Vol] 59 mg/dL Normal 0-149 [facility]; [facility] Work Phone: Comment on above: PATIENT WAS FASTINGP ERFORMED BY: CB [facility] Ulhkfc5567 [address] RoadDublin [place] [id number] LIPID PANEL (36694) 10 mg/dL Normal 5-40 [facility] Internal Medicine; [facility] Work Phone: Comment on above: PATIENT WAS FASTINGP ERFORMED BY: BERNARD Labambrosioeileen Dirtha29[address] [facility] Hospitalblin [place] [id number] LIPID PANEL (21674) 152 mg/dL Abnormal 0-99 [facility] Internal Medicine; [facility] Work Phone: Comment on above: PATIENT WAS FASTINGP ERFORMED BY: BERNARD Labcoeileen CortezIeqjtj[address] [facility] [place] [id number] LIPID PANEL (00729) 1.9 {ratio} Normal 0.0-3.2 [facility] Internal Medicine; [facility] Work Phone: Comment on above: LDL/HDL Ratio Men Wo men 1/2 Avg.Risk 1.0 1.5 Avg.Risk 3.6 3.2 2X Avg.Risk 6.2 5.0 3X Avg.Risk 8.0 6.1 PATIENT WAS FASTINGP ERFORMED BY: BERNARD Labaniyah CortezOqhuhb7334 [facility] [id number] METABOLIC PANEL, COMPREHENSI VE (37774)Ordered By: Investment Fund Manager on 03-22-2022 Albumin [Mass/Vol] 4.2 g/dL Normal 3.7-4.7 [facility] Internal Medicine; [facility] Work Phone: Comment on above: PATIENT WAS FASTINGP ERFORMED BY: BERNARD Labaniyah CortezOgzlgg[address] [facility] [place] [id number] Albumin/Globulin [Mass ratio] 1.7 {ratio} Normal 1.2-2.2 [facility] Internal Medicine; [facility] Work Phone: Comment on above: PATIENT WAS FASTINGP ERFORMED BY: BERNARD [facility] Xnyapg1244 [address] [facility] Hospitalblin [place] [id number] ALP [Catalytic activity/Vol] 77 U/L Normal 44-121 [facility]; [facility] Work Phone: Comment on above: PATIENT WAS FASTINGP ERFORMED BY: BERNARD [facility] Ejpcyj13[address] [facility] Hospitalblin [place] [id number] ALT [Catalytic activity/Vol] 12 U/L Normal 0-32 [facility]; [facility] Work Phone: Comment on above: PATIENT WAS FASTINGP ERFORMED BY: CB [facility] Gynaag9033 [address] RoadDublin [place] [id number] AST [Catalytic activity/Vol] 13 U/L Normal 0-40 [facility]; [facility] Work Phone: Comment on above: PATIENT WAS FASTINGP ERFORMED BY: CB [facility] Slmgku8256 [address] RoadDublin [place] [id number] Bilirubin [Mass/Vol] 0.4 mg/dL Normal 0.0-1.2 Comp rehensive Internal Medicine; [facility] Work Phone: Comment on above: PATIENT WAS FASTINGP ERFORMED BY: CB [facility] Tkqaao8609 [address] RoadDublin [place] [id number] Calcium [Mass/Vol] 9.4 mg/dL Normal 8.7-10.3 [facility] Internal Medicine; [facility] Work Phone: Comment on above: PATIENT WAS FASTINGP ERFORMED BY: CB [facility] Jkwutx7240 [address] RoadDublin [place] [id number] Chloride [Moles/Vol] 101 mmol/L Normal 96-106 [facility] Centerens[facility]; [facility] Work Phone: Comment on above: PATIENT WAS FASTINGP ERFORMED BY: CB [facility] Cepcgq9208 [address] RoadDublin [place] [id number] CO2 [Moles/Vol] 24 mmol/L Normal 20-29 [facility] Internal Medicine; [facility] Work Phone: Comment on above: PATIENT WAS FASTINGP ERFORMED BY: CB [facility] Vjysac4159 [address] RoadDublin [place] [id number] Creatinine [Mass/Vol] 0.85 mg/dL Normal 0.57-1.00 [facility]erens[facility]; [facility] Work Phone: Comment on above: PATIENT WAS FASTINGP ERFORMED BY: CB [facility] Epmnwk8711 [address] RoadDublin [place] [id number] GFR/1.73 sq M.predicted among non-blacks MDRD (S/P/Bld) [Vol rate/Area] 73 mL/min/{1.73_m2} Normal Comprehensiv e Internal Medicine; [facility] Work Phone: Comment on above: PATIENT WAS FASTINGP ERFORMED BY: [facility] Cuyxbg3166 [address] RoadDublin [place] [id number] Globulin (S) [Mass/Vol] 2.5 g/dL Normal 1.5-4.5 [facility]; [facility] Work Phone: Comment on above: PATIENT WAS FASTINGP ERFORMED BY: [facility] Grfuqm0633 [address] RoadDublin [place] [id number] Glucose [Mass/Vol] 96 mg/dL Normal 65-99 [facility] Internal Medicine; [facility] Work Phone: Comment on above: PATIENT WAS FASTINGP ERFORMED BY: [facility]Br[facility]6[address] Roadblin [place] [id number] Potassium [Moles/Vol] 4.9 mmol/L Normal 3.5-5.2 [facility] prehensive Internal Medicine; [facility] Work Phone: Comment on above: PATIENT WAS FASTINGP ERFORMED BY: [facility] Cqaqho8505 [address] [facility] Hospitalin [place] [id number] Protein [Mass/Vol] 6.7 g/dL Normal 6.0-8.5 [facility] Internal Medicine; [facility] Work Phone: Comment on above: PATIENT WAS FASTINGP ERFORMED BY: [facility] Smgbhm1910 [address] RoadDublin [place] [id number] Sodium [Moles/Vol] 139 mmol/L Normal 134-144 [facility] Internal Medicine; [facility] Work Phone: Comment on above: PATIENT WAS FASTINGP ERFORMED BY: [facility] Cuklgg0588 [address] RoadDublin [place] [id number] Urea nitrogen [Mass/Vol] 17 mg/dL Normal 8-27 [facility]; [facility] Work Phone: Comment on above: PATIENT WAS FASTINGP ERFORMED BY: BERNARD Kane Jiang6370 [address] RoadDublin [place] [id number] Urea nitrogen/Creatinine [Mass ratio] 20 mg/mg Normal 12-28 [facility]; [facility] Work Phone: Comment on above: PATIENT WAS FASTINGP ERFORMED BY: BERNARD [facility] Jhfpct8459 [address] RoadDublin [place] [id number] MICROALB;CREAT RATION, RAND UR ([id number])Ordered By: Investment Fund Manager on 03-22-2022 Albumin DL <= 20 mg/L (U) [Mass/Vol] 3.6 ug/mL Normal [facility]; [facility] Work Phone: Comment on above: PATIENT WAS FASTINGP ERFORMED BY: BERNARD Kane Jiang6370 [address] RoadDublin [place] [id number] Albumin/Creatinine (U) [Mass ratio] 6 {mg/g_creat} Normal 0-29 [facility]; [facility] Work Phone: Comment on above: Normal: 0 - 29 Moder ately increased: 30 - 300 Severely increased: >300 PATIENT WAS FASTINGP ERFORMED BY: BERNARD Labambrosioeileen Qriabc0233 [address] RoadDublin [place] [id number] Creatinine (U) [Mass/Vol] 62.5 mg/dL Normal [facility]; [facility] Work Phone: Comment on above: PATIENT WAS FASTINGP ERFORMED BY: BERNARD [facility] Zwsqjn0786 [address] RoadDublin [place] [id number] TSH (THYROID STIMULATING HOR MARCY) ([id number])Ordered By: Investment Fund Manager on 03-22-2022 TSH Qn 3.420 {uIU/mL} Normal 0.450-4.500 Comprehen sive Internal Medicine; [facility] Work Phone: Comment on above: PATIENT WAS FASTINGP ERFORMED BY: BERNARD [facility] Tcuhpv8323 [address] RoadDublin [place] [id number] URINALYSIS W MICROSCOPY ([id number] 00)Ordered By: Investment Fund Manager on 03-22-2022 Appearance (U) Clear Normal Comprehens nargis Internal Medicine; [facility] Work Phone: Comment on above: PATIENT WAS FASTINGP ERFORMED BY: BERNARD Jiang6370 [address] RoadDublin [place] [id number] Bilirubin Ql (U) Negative Normal Comprehe nsive Internal Medicine; [facility] Work Phone: Comment on above: PATIENT WAS FASTINGP ERFORMED BY: BERNARD Jiang6370 [address] RoadDublin [place] [id number] Color (U) Yellow Normal [facility]; [facility] Work Phone: Comment on above: PATIENT WAS FASTINGP ERFORMED BY: BERNARD Jiang6370 [address] RoadDublin [place] [id number] Glucose Ql (U) Negative Normal Comprehens nargis Internal Medicine; [facility] Work Phone: Comment on above: PATIENT WAS FASTINGP ERFORMED BY: BERNARD Solano70 [address] Roadblin [place] [id number] Hemoglobin Ql (U) Negative Normal Compreh ensive Internal Medicine; [facility] Work Phone: Comment on above: PATIENT WAS FASTINGP ERFORMED BY: BERNARD Jiang6370 [address] RoadDublin [place] [id number] Ketones Ql (U) Negative Normal Comprehens nargis Internal Medicine; [facility] Work Phone: Comment on above: PATIENT WAS FASTINGP ERFORMED BY: BERNARD Jiang6370 [address] [facility]in [place] [id number] Leukocyte esterase Test strip Ql (U) 1+ Abnormal [facility]; [facility] Work Phone: Comment on above: PATIENT WAS FASTINGP ERFORMED BY: BERNARD Jiang6370 [address] RoadDublin [place] [id number] Microscopic observation LM Nom (Urine sed) See below: Normal [facility]; [facility] Work Phone: Comment on above: Microscopic was armando cated and was performed. PATIENT WAS FASTINGP ERFORMED BY: BERNARD Cortezlin6370 [address] RoadDublin [place] [id number] Nitrite Ql (U) Negative Normal Comprehens nargis Internal Medicine; [facility] Work Phone: Comment on above: PATIENT WAS FASTINGP ERFORMED BY: [facility] Ohuuir1320 [address] RoadDublin [place] [id number] pH (U) 7.0 [pH] Normal 5.0-7.5 [facility]; [facility] Work Phone: Comment on above: PATIENT WAS FASTINGP ERFORMED BY: [facility] Hcpfzf5400 [address] RoadDublin [place] [id number] Protein Ql (U) Negative Normal Comprehens nargis Internal Medicine; [facility] Work Phone: Comment on above: PATIENT WAS FASTINGP ERFORMED BY: [facility] Mesogi3416 [address] eMithilaHaatblin [place] [id number] Specific gravity (U) [Rel density] 1.013 1 Normal 1.005-1.030 [facility]; [facility] Work Phone: Comment on above: PATIENT WAS FASTINGP ERFORMED BY: [facility] Zcmssn0716 [address] RoadDublin [place] [id number] Urobilinogen (U) [Mass/Vol] 0.2 mg/dL Normal 0.2-1.0 [facility]; [facility] Work Phone: Comment on above: PATIENT WAS FASTINGP ERFORMED BY: [facility] Mxsset2019 [address] SteelHouseAtrium Health Carol[facility] Rehabilitation Charlottein [place] [id number] URINE HEIDI CULTURE-IDENTIFICA [place] ([id number])Ordered By: Investment Fund Manager on 03-09-2021 Bacteria identified Cx Nom (U) Final report Abnormal [facility]; [facility] Work Phone: Comment on above: PERFORMED BY: [facility] Aniyah Sddwhy0574 [address] [facility] Hospitalbl[facility] [place] [id number] Information: SRC:UR Bacteria identified Cx Nom (U) Escherichia coli Abnormal [facility]; [facility] Work Phone: Comment on above: Greater than 100,000 colony forming units per mLCefazolin <=4 ug/mLCefazolin with an MYA <=16 predicts susceptibility to the oral agentscefaclor, cefdinir, cefpodoxime, cefprozil, cefuroxime, cephalexin,and loracarbef when used for therapy of uncomplicated urinary tractinfections due to E. coli, Klebsiella pneumoniae, and Proteusmirabilis. PERFORMED BY: Online[employer]6370 Viryd TechnologiesCarolinas ContinueCARE Hospital at [facility] [id number] Information: SRC:UR Other Antibiotic [Susc] MIHEAD Normal [facility]; [facility] Work Phone: Comment on above: S = Susceptible; I = Intermediate; R = Resistant P = Positive; N = Negative MICS are expressed in micrograms per mL Antibiotic RSLT#1 RSLT#2 RSLT#3 RSLT#4Amoxicillin/Clavulanic Acid SAmpicillin SCefepime SCeftriaxone SCefuroxime SCiprofloxacin SErtapenem SGentamicin SImipenem SLevofloxacin SMeropenem SNitrofurantoin SPiperacillin/Tazobactam STetracycline STobramycin STrimethoprim/Sulfa S PERFORMED BY: [place] Rirfpm8630 Viryd TechnologiesCarolinas ContinueC[facility] [id number] Information: SRC:UR Urinalysis, Office ([id number])on 03-09-2021 Bilirubin Ql (U) + Abnormal Comprehe nsive Internal Medicine; [facility] Work Phone: Glucose Test strip (U) [Mass/Vol] Negative Normal [facility]; [facility] Work Phone: Glucose Test strip (U) [Mass/Vol] Negative Normal [facility]; [facility] Work Phone: Hemoglobin Ql (U) +++ Abnormal Compreh ensive Internal Medicine; [facility] Work Phone: Ketones Ql (U) Small Normal Comprehens nargis Internal [facility]; [facility] Work Phone: Leukocyte esterase Test strip Ql (U) Large Abnormal [facility]; [facility] Work Phone: Nitrite Ql (U) + Abnormal Comprehens nargis [facility]; [facility] Work Phone: pH (U) 6 [pH] Abnormal [facility]; [facility] Work Phone: Protein Ql (U) +++ Abnormal Comprehens nargis Internal [facility]; [facility] Work Phone: Specific gravity (U) [Rel density] 1.025 1 Normal [facility]; [facility] Work Phone: Urobilinogen (24H U) [Mass/Time] 2 mg/dL Normal [facility]; [facility] Work Phone: CBC W/AUTO DIFF WBC ([id number])O rdered By: Investment Fund Manager on 01-29-2021 Basophils (Bld) [#/Vol] 0.0 {x10E3/uL} Normal 0.0-0.2 [facility]; [facility] Work Phone: Comment on above: PATIENT WAS FASTINGP ERFORMED BY: [employer] S[employer] Dpztol4949 Jones SteelHouseCentral [facility] Hospital [id number] Basophils (Bld) [#/Vol] 0.0 10*3/uL Normal 0.0-0.2 [facility]; [facility] Work Phone: Comment on above: PATIENT WAS FASTINGP ERFORMED BY: [employer]70 [facility] [id number] Basophils/100 WBC (Bld) 1 % Normal [facility]; [facility] Work Phone: Comment on above: PATIENT WAS FASTINGP ERFORMED BY: [employer] S[employer] Juopby1872 [address] SteelHouseCentral [facility] Hospital [id number] Eosinophils (Bld) [#/Vol] 0.1 {x10E3/uL} Normal 0.0-0.4 [facility]; [facility] Work Phone: Comment on above: PATIENT WAS FASTINGP ERFORMED BY: [employer] S[employer] Vlkyzi8963 [facility] [id number] Eosinophils (Bld) [#/Vol] 0.1 10*3/uL Normal 0.0-0.4 [facility]; [facility] Work Phone: Comment on above: PATIENT WAS FASTINGP ERFORMED BY: BERNARD [facility] Uyrtzt9299 Jones RoadDublin [place] [id number] Eosinophils/100 WBC (Bld) 3 % Normal [facility]; [facility] Work Phone: Comment on above: PATIENT WAS FASTINGP ERFORMED BY: [facility] Ijzfic6157 [address] Roadblin [place] [id number] Erythrocyte distribution width (RBC) [Ratio] 13.3 % Normal 11.7-15.4 [facility]; [facility] Work Phone: Comment on above: PATIENT WAS FASTINGP ERFORMED BY: [facility] Afqzmk0027 [address] RoadDublin [place] [id number] Hematocrit (Bld) [Volume fraction] 40.2 % Normal 34.0-46.6 [facility]; [facility] Work Phone: Comment on above: PATIENT WAS FASTINGP ERFORMED BY: [facility] Qgwdkh8587 Jones RoadAtrium Health Carolinas Rehabilitation Charlottein [place] [id number] Hemoglobin (Bld) [Mass/Vol] 13.0 g/dL Normal 11.1-15.9 [facility]; [facility] Work Phone: Comment on above: PATIENT WAS FASTINGP ERFORMED BY: [facility] Haxcsz0412 [address] RoadDublin [place] [id number] Immature granulocytes (Bld) [#/Vol] 0.0 {x10E3/uL} Normal 0.0-0.1 [facility]; [facility] Work Phone: Comment on above: PATIENT WAS FASTINGP ERFORMED BY: [facility] Khulwf3284 [address] RoadDublin [place] [id number] Immature granulocytes (Bld) [#/Vol] 0.0 10*3/uL Normal 0.0-0.1 [facility]; [facility] Work Phone: Comment on above: PATIENT WAS FASTINGP ERFORMED BY: [facility] Xyeuff0478 [address] RoadDublin [place] [id number] Immature granulocytes/100 WBC (Bld) 0 % Normal [facility]; [facility] Work Phone: Comment on above: PATIENT WAS FASTINGP ERFORMED BY: [facility] Psyvdr8657 Jones RoadDublin [place] [id number] Lymphocytes (Bld) [#/Vol] 1.4 {x10E3/uL} Normal 0.7-3.1 [facility]; [facility] Work Phone: Comment on above: PATIENT WAS FASTINGP ERFORMED BY: [facility] Iowcxa8329 [address] Roadblin [place] [id number] Lymphocytes (Bld) [#/Vol] 1.4 10*3/uL Normal 0.7-3.1 [facility]; [facility] Work Phone: Comment on above: PATIENT WAS FASTINGP ERFORMED BY: [facility] Iyecvf9859 [address] Roadblin [place] [id number] Lymphocytes/100 WBC (Bld) 35 % Normal [facility]; [facility] Work Phone: Comment on above: PATIENT WAS FASTINGP ERFORMED BY: [facility] Gmccjd8973 [address] [facility]in [place] [id number] MCH (RBC) [Entitic mass] 29.5 pg Normal 26.6-33.0 [facility]; [facility] Work Phone: Comment on above: PATIENT WAS FASTINGP ERFORMED BY: [facility] Kqsmlo7323 [address] [facility]in [place] [id number] MCHC (RBC) [Mass/Vol] 32.3 g/dL Normal 31.5-35.7 [facility] prehensive Internal Medicine; [facility] Work Phone: Comment on above: PATIENT WAS FASTINGP ERFORMED BY: [facility] Oaqbpr2575 [address] RoadDublin [place] [id number] MCV (RBC) [Entitic vol] 91 fL Normal 79-97 [facility]; [facility] Work Phone: Comment on above: PATIENT WAS FASTINGP ERFORMED BY: [facility] Ktsrxb1474 [address] RoadDublin [place] [id number] Monocytes (Bld) [#/Vol] 0.4 {x10E3/uL} Normal 0.1-0.9 [facility]; [facility] Work Phone: Comment on above: PATIENT WAS FASTINGP ERFORMED BY: BERNARD Cortezlin6370 [address] RoadDublin [place] [id number] Monocytes (Bld) [#/Vol] 0.4 10*3/uL Normal 0.1-0.9 [facility]; [facility] Work Phone: Comment on above: PATIENT WAS FASTINGP ERFORMED BY: BERNARD Cortezlin6370 [address] RoadDublin [place] [id number] Monocytes/100 WBC (Bld) 10 % Normal [facility]; [facility] Work Phone: Comment on above: PATIENT WAS FASTINGP ERFORMED BY: BERNARD Cortezlin6370 [address] RoadDublin [place] [id number] Neutrophils (Bld) [#/Vol] 2.1 {x10E3/uL} Normal 1.4-7.0 [facility]; [facility] Work Phone: Comment on above: PATIENT WAS FASTINGP ERFORMED BY: BERNARD Jiang6370 [address] RoadDublin [place] [id number] Neutrophils (Bld) [#/Vol] 2.1 10*3/uL Normal 1.4-7.0 [facility]; [facility] Work Phone: Comment on above: PATIENT WAS FASTINGP ERFORMED BY: BERNARD LabCoeileen CortezFwmznk5217 [address] RoadDublin [place] [id number] Neutrophils/100 WBC (Bld) 51 % Normal [facility]; [facility] Work Phone: Comment on above: ADDENDA: ov 02/05 PATIENT WAS FASTINGP ERFORMED BY: BERNARD LabAniyah CortezHfpakw7119 Jones RoadDublin [place] [id number] Platelets (Bld) [#/Vol] 338 {x10E3/uL} Normal 150-450 [facility]; [facility] Work Phone: Comment on above: PATIENT WAS FASTINGP ERFORMED BY: CB [facility] Akbfua9258 [address] RoadDublin [place] [id number] Platelets (Bld) [#/Vol] 338 10*3/uL Normal 150-450 [facility]; [facility] Work Phone: Comment on above: PATIENT WAS FASTINGP ERFORMED BY: BERNARD [facility] Dslhsc7158 [address] RoadDublin [place] [id number] RBC (Bld) [#/Vol] 4.41 {x10E6/uL} Normal 3.77-5.28 [facility]; [facility] Work Phone: Comment on above: PATIENT WAS FASTINGP ERFORMED BY: BERNARD [facility] Mkibis4783 [address] RoadDublin [place] [id number] RBC (Bld) [#/Vol] 4.41 10*6/uL Normal 3.77-5.28 [facility] Medicine; [facility] Work Phone: Comment on above: PATIENT WAS FASTINGP ERFORMED BY: BERNARD [facility] Bdkulk1103 [address] RoadDublin [place] [id number] WBC (Bld) [#/Vol] 4.1 {x10E3/uL} Normal 3.4-10.8 [facility]; [facility] Work Phone: Comment on above: PATIENT WAS FASTINGP ERFORMED BY: BERNARD [facility] Qsztuf6045 [address] RoadDublin [place] [id number] WBC (Bld) [#/Vol] 4.1 10*3/uL Normal 3.4-10.8 [facility] Internal Medicine; [facility] Work Phone: Comment on above: PATIENT WAS FASTINGP ERFORMED BY: CB [facility] Zffrrt9334 [address] RoadDublin [place] [id number] LIPID PANEL (65191)Ordered B y: Investment Fund Manager on 01-29-2021 Cholesterol [Mass/Vol] 273 mg/dL Abnormal 100-199 [facility]erehens[facility]; [facility] Work Phone: Comment on above: PATIENT WAS FASTINGP ERFORMED BY: CB [facility] Uoyuas9766 [address] RoadDublin [place] [id number] Cholesterol in HDL [Mass/Vol] 99 mg/dL Normal [facility]; [facility] Work Phone: Comment on above: PATIENT WAS FASTINGP ERFORMED BY: BERNARD Cortezlin6370 [facility]in [place] [id number] Cholesterol in LDL/Cholesterol in HDL [Mass ratio] 1.7 {ratio} Normal 0.0-3.2 [facility]; [facility] Work Phone: Comment on above: LDL/HDL Ratio Men Wo men 1/2 Avg.Risk 1.0 1.5 Avg.Risk 3.6 3.2 2X Avg.Risk 6.2 5.0 3X Avg.Risk 8.0 6.1 PATIENT WAS FASTINGP ERFORMED BY: BERNARD Cortezlin6370 [facility] [id number] Triglyceride [Mass/Vol] 63 mg/dL Normal 0-149 [facility]; [facility] Work Phone: Comment on above: PATIENT WAS FASTINGP ERFORMED BY: BERNARD LabAniyah CortezLtdukf5578 [facility]in [place] [id number] LIPID PANEL (24506) 164 mg/dL Abnormal 0-99 [facility]; [facility] Work Phone: Comment on above: PATIENT WAS FASTINGP ERFORMED BY: BERNARD LabAniyah CortezVrdqtb8614 [facility]in [place] [id number] LIPID PANEL (68982) 10 mg/dL Normal 5-40 [facility]; [facility] Work Phone: Comment on above: PATIENT WAS FASTINGP ERFORMED BY: BERNARD [facility] Nyzdar3096 [facility]in [place] [id number] LIPID PANEL (67401) 1.7 {ratio} Normal 0.0-3.2 [facility] Internal Medicine; [facility] Work Phone: Comment on above: LDL/HDL Ratio Men Wo men 1/2 Avg.Risk 1.0 1.5 Avg.Risk 3.6 3.2 2X Avg.Risk 6.2 5.0 3X Avg.Risk 8.0 6.1 PATIENT WAS FASTINGP ERFORMED BY: CB [facility] Ihrsur8804 [address]Dublin [place] [id number] METABOLIC PANEL, COMPREHENSI VE (73501)Ordered By: Investment Fund Manager on 01-29-2021 Albumin [Mass/Vol] 4.3 g/dL Normal 3.8-4.8 [facility] Internal Medicine; [facility] Work Phone: Comment on above: PATIENT WAS FASTINGP ERFORMED BY: CB [facility] Rlltzz7160 [address] RoadDublin [place] [id number] Albumin/Globulin [Mass ratio] 1.7 {ratio} Normal 1.2-2.2 [facility]; [facility] Work Phone: Comment on above: PATIENT WAS FASTINGP ERFORMED BY: CB [facility] Vuhvcm2945 [address] RoadDublin [place] [id number] ALP [Catalytic activity/Vol] 63 [iU]/L Normal 39-117 [facility]; [facility] Work Phone: Comment on above: PATIENT WAS FASTINGP ERFORMED BY: CB [facility] Ltlqtj4005 [address] RoadDublin [place] [id number] ALP [Catalytic activity/Vol] 63 U/L Normal 39-117 [facility]; [facility] Work Phone: Comment on above: PATIENT WAS FASTINGP ERFORMED BY: CB [facility] Sxyigq0626 [address] RoadDublin [place] [id number] ALT [Catalytic activity/Vol] 13 [iU]/L Normal 0-32 [facility]; [facility] Work Phone: Comment on above: PATIENT WAS FASTINGP ERFORMED BY: CB [facility] Qquwlu7574 [address] RoadDublin [place] [id number] ALT [Catalytic activity/Vol] 13 U/L Normal 0-32 [facility]; [facility] Work Phone: Comment on above: PATIENT WAS FASTINGP ERFORMED BY: CB [facility] Uujtda7141 [address] RoadDublin [place] [id number] AST [Catalytic activity/Vol] 15 [iU]/L Normal 0-40 [facility]; [facility] Work Phone: Comment on above: PATIENT WAS FASTINGP ERFORMED BY: CB [facility] Sjujqy1703 [address] RoadDublin [place] [id number] AST [Catalytic activity/Vol] 15 U/L Normal 0-40 [facility]; [facility] Work Phone: Comment on above: PATIENT WAS FASTINGP ERFORMED BY: CB [facility] Yyfezy9639 [address] RoadDublin [place] [id number] Bilirubin [Mass/Vol] 0.3 mg/dL Normal 0.0-1.2 [facility] rehensive Internal Medicine; [facility] Work Phone: Comment on above: PATIENT WAS FASTINGP ERFORMED BY: CB [facility] Wkamul1107 [address] RoadDublin [place] [id number] Calcium [Mass/Vol] 9.4 mg/dL Normal 8.7-10.3 [facility] Internal Medicine; [facility] Work Phone: Comment on above: PATIENT WAS FASTINGP ERFORMED BY: CB [facility] Rqansr0317 [address] RoadDublin [place] [id number] Chloride [Moles/Vol] 102 mmol/L Normal 96-106 [facility]erens[facility]; [facility] Work Phone: Comment on above: PATIENT WAS FASTINGP ERFORMED BY: CB [facility] Ruxpgr6129 [address] RoadDublin [place] [id number] CO2 [Moles/Vol] 26 mmol/L Normal 20-29 [facility] Internal Medicine; [facility] Work Phone: Comment on above: PATIENT WAS FASTINGP ERFORMED BY: CB [facility] Wgslyf1880 [address] RoadDublin [place] [id number] Creatinine [Mass/Vol] 0.86 mg/dL Normal 0.57-1.00 [facility]erens[facility]; [facility] Work Phone: Comment on above: PATIENT WAS FASTINGP ERFORMED BY: CB [facility] Ofxfel8463 [address] RoadDublin [place] [id number] GFR/1.73 sq M predicted among blacks CKD-EPI (S/P/Bld) [Vol rate/Area] 79 mL/min/1.73 Normal [facility]; [facility] Work Phone: Comment on above: PATIENT WAS FASTINGP ERFORMED BY: [facility] Lxgkbg9479 [address] RoadDublin [place] [id number] GFR/1.73 sq M predicted among non-blacks CKD-EPI (S/P/Bld) [Vol rate/Area] 69 mL/min/1.73 Normal [facility]; [facility] Work Phone: Comment on above: PATIENT WAS FASTINGP ERFORMED BY: [facility] Nhuksl4039 [address] RoadDublin [place] [id number] Globulin (S) [Mass/Vol] 2.6 g/dL Normal 1.5-4.5 [facility] Internal Medicine; [facility] Work Phone: Comment on above: PATIENT WAS FASTINGP ERFORMED BY: [facility] Icsnhp7356 [address] [facility] Hospitalblin [place] [id number] Glucose [Mass/Vol] 83 mg/dL Normal 65-99 [facility] Internal Medicine; [facility] Work Phone: Comment on above: PATIENT WAS FASTINGP ERFORMED BY: [facility] Xcghxy4721 [address] [facility] Hospitalblin [place] [id number] Potassium [Moles/Vol] 4.4 mmol/L Normal 3.5-5.2 [facility] prehensive Internal Medicine; [facility] Work Phone: Comment on above: PATIENT WAS FASTINGP ERFORMED BY: [facility] Zouhly[address] [facility] HospitalD[place] [id number] Protein [Mass/Vol] 6.9 g/dL Normal 6.0-8.5 [facility] Internal Medicine; [facility] Work Phone: Comment on above: PATIENT WAS FASTINGP ERFORMED BY: [facility] Nmlspo7178 [address] RoadDublin [place] [id number] Sodium [Moles/Vol] 140 mmol/L Normal 134-144 [facility] Internal Medicine; [facility] Work Phone: Comment on above: PATIENT WAS FASTINGP ERFORMED BY: BERNARD LabAniyah Zalfgx5195 [address] RoadDublin [place] [id number] Urea nitrogen [Mass/Vol] 17 mg/dL Normal 8-27 [facility]; [facility] Work Phone: Comment on above: PATIENT WAS FASTINGP ERFORMED BY: BERNARD LabAniyah CortezVithei4155 [address] RoadDublin [place] [id number] Urea nitrogen/Creatinine [Mass ratio] 20 mg/mg Normal 12-28 [facility]; [facility] Work Phone: Comment on above: PATIENT WAS FASTINGP ERFORMED BY: BERNARD LabAniyah CortezNpjwqa8283 [address] RoadDublin [place] [id number] MICROALBUMINOrdered By: Syst em Plastic Manager on 01-29-2021 Albumin DL <= 20 mg/L (U) [Mass/Vol] 4.4 ug/mL Normal [facility]; [facility] Work Phone: Comment on above: PATIENT WAS FASTINGP ERFORMED BY: BERNARD Cortezlin6370 [address]Dublin [place] [id number] Albumin/Creatinine (U) [Mass ratio] 7 {mg/g_creat} Normal 0-29 [facility]; [facility] Work Phone: Comment on above: Normal: 0 - 29 Moder ately increased: 30 - 300 Severely increased: >300 PATIENT WAS FASTINGP ERFORMED BY: BERNARD LabAniyah Rfgrtb5231 [address] RoadDublin [place] [id number] Creatinine (U) [Mass/Vol] 61.4 mg/dL Normal [facility]; [facility] Work Phone: Comment on above: PATIENT WAS FASTINGP ERFORMED BY: BERNARD [facility] Yknzky9033 [address] RoadDublin [place] [id number] URINALYSIS, W/ MICRO ([id number]) Ordered By: Investment Fund Manager on 01-29-2021 Appearance (U) Clear Normal Comprehens nargis Internal Medicine; [facility] Work Phone: Comment on above: PATIENT WAS FASTINGP ERFORMED BY: BERNARD CohnCo Rfgwni2046 [address] RoadDublin [place] [id number] Bilirubin Ql (U) Negative Normal Comprehe nsive Internal Medicine; [facility] Work Phone: Comment on above: PATIENT WAS FASTINGP ERFORMED BY: BERNARD [facility] Unbvdg9443 [address] RoadDublin [place] [id number] Bilirubin Ql (U) Negative Normal Comprehe nsive Internal Medicine; [facility] Work Phone: Comment on above: PATIENT WAS FASTINGP ERFORMED BY: BERNARD LabCoeileen CortezWuenqm4980 [address] RoadDublin [place] [id number] Color (U) Yellow Normal [facility]; [facility] Work Phone: Comment on above: PATIENT WAS FASTINGP ERFORMED BY: BERNARD Cortezlin6[address] RoadDublin [place] [id number] Glucose Ql (U) Negative Normal Comprehens nargis Internal Medicine; [facility] Work Phone: Comment on above: PATIENT WAS FASTINGP ERFORMED BY: BERNARD CohnLaeileen CortezEdrxcd5249 [address] RoadDublin [place] [id number] Glucose Ql (U) Negative Normal Comprehens nargis Internal Medicine; [facility] Work Phone: Comment on above: PATIENT WAS FASTINGP ERFORMED BY: BERNARD Jiang6370 [address] RoadDublin [place] [id number] Hemoglobin Ql (U) Negative Normal Compreh ensive Internal Medicine; [facility] Work Phone: Comment on above: PATIENT WAS FASTINGP ERFORMED BY: BERNARD LabSt. [facility] Avadco0152 [address] RoadDublin [place] [id number] Hemoglobin Ql (U) Negative Normal Compreh ensive Internal Medicine; [facility] Work Phone: Comment on above: PATIENT WAS FASTINGP ERFORMED BY: BERNARD [facility] Ufjqyp4932 [address] RoadDublin [place] [id number] Ketones Ql (U) Negative Normal Comprehens nargis Internal Medicine; [facility] Work Phone: Comment on above: PATIENT WAS FASTINGP ERFORMED BY: CB [facility] Avwnpd5540 [address] RoadDublin [place] [id number] Ketones Ql (U) Negative Normal Comprehens nargis Internal Medicine; [facility] Work Phone: Comment on above: PATIENT WAS FASTINGP ERFORMED BY: BERNARD [facility] Qvtexi6337 [address] RoadDublin [place] [id number] Leukocyte esterase Test strip Ql (U) 2+ Abnormal [facility]; [facility] Work Phone: Comment on above: PATIENT WAS FASTINGP ERFORMED BY: BERNARD [facility] Ugfbaa9775 [address] RoadDublin [place] [id number] Microscopic observation LM Nom (Urine sed) See below: Normal [facility]; [facility] Work Phone: Comment on above: Microscopic was armando cated and was performed. PATIENT WAS FASTINGP ERFORMED BY: BERNARD LabAmbrosio Xmqavb8639 [address] RoadDublin [place] [id number] Nitrite Ql (U) Negative Normal Comprehens nargis Internal Medicine; [facility] Work Phone: Comment on above: PATIENT WAS FASTINGP ERFORMED BY: BERNARD LabSt[facility] Phercx1316 [address] RoadDublin [place] [id number] Nitrite Ql (U) Negative Normal Comprehens nargis Internal Medicine; [facility] Work Phone: Comment on above: PATIENT WAS FASTINGP ERFORMED BY: BERNARD LabSt[facility] Jxromz4186 [address] RoadDublin [place] [id number] pH (U) 6.5 [pH] Normal 5.0-7.5 [facility]; [facility] Work Phone: Comment on above: PATIENT WAS FASTINGP ERFORMED BY: BERNARD [facility] Ggpirp4951 [address] RoadDublin [place] [id number] Protein Ql (U) Negative Normal Comprehens nargis Internal Medicine; [facility] Work Phone: Comment on above: PATIENT WAS FASTINGP ERFORMED BY: BERNARD [facility] Bwnaff2128 [address] RoadDublin [place] [id number] Protein Ql (U) Negative Normal Comprehens nargis Internal Medicine; [facility] Work Phone: Comment on above: PATIENT WAS FASTINGP ERFORMED BY: CB [facility] Ppbvae5914 [address] RoadDublin [place] [id number] Specific gravity (U) [Rel density] 1.013 1 Normal 1.005-1.030 [facility]; [facility] Work Phone: Comment on above: PATIENT WAS FASTINGP ERFORMED BY: CB [facility] Hknefa1801 [address] RoadDublin [place] [id number] Urobilinogen (U) [Mass/Vol] 0.2 mg/dL Normal 0.2-1.0 [facility] Internal Medicine; [facility] Work Phone: Comment on above: PATIENT WAS FASTINGP ERFORMED BY: CB [facility] Vgjicz3497 [address] RoadDublin [place] [id number] Urobilinogen Test strip (U) [Mass/Vol] 0.2 mg/dL Normal 0.2-1.0 [facility] Internal Medicine; [facility] Work Phone: Comment on above: PATIENT WAS FASTINGP ERFORMED BY: CB [facility] Hzxgwo5278 [address] RoadDublin [place] [id number] LIPID PANEL (98794)Ordered B y: Investment Fund Manager on 11-11-2020 Cholesterol [Mass/Vol] 252 mg/dL Abnormal 100-199 [facility] Internal Medicine; [facility] Work Phone: Comment on above: PATIENT WAS FASTINGP ERFORMED BY: CB [facility] Xdalrh5174 [address] RoadDublin [place] [id number] Cholesterol in HDL [Mass/Vol] 91 mg/dL Normal [facility]; [facility] Work Phone: Comment on above: PATIENT WAS FASTINGP ERFORMED BY: CB [facility] Rrfbfm6421 [address] RoadDublin [place] [id number] Cholesterol in LDL/Cholesterol in HDL [Mass ratio] 1.7 {ratio} Normal 0.0-3.2 [facility]; [facility] Work Phone: Comment on above: LDL/HDL Ratio Men Wo men 1/2 Avg.Risk 1.0 1.5 Avg.Risk 3.6 3.2 2X Avg.Risk 6.2 5.0 3X Avg.Risk 8.0 6.1 PATIENT WAS FASTINGP ERFORMED BY: BERNARD LabCoeileen Dpsqtx9296 [address] Roadblin [place] [id number] Triglyceride [Mass/Vol] 57 mg/dL Normal 0-149 [facility]; [facility] Work Phone: Comment on above: PATIENT WAS FASTINGP ERFORMED BY: BERNARD [facility] Aolbup3752 [address] [facility]bl[facility] [place] [id number] LIPID PANEL (57442) 152 mg/dL Abnormal 0-99 Compr ensive Internal Medicine; [facility] Work Phone: Comment on above: PATIENT WAS FASTINGP ERFORMED BY: BERNARD LabCoeileen CortezTowkny8610 [address] Roadblin [place] [id number] LIPID PANEL (80912) 9 mg/dL Normal 5-40 [facility]; [facility] Work Phone: Comment on above: PATIENT WAS FASTINGP ERFORMED BY: BERNARD LabCoeileen CortezUyhhrr8003 [address] [facility]in [place] [id number] LIPID PANEL (93240) 1.7 {ratio} Normal 0.0-3.2 [facility]erens[facility]; [facility] Work Phone: Comment on above: LDL/HDL Ratio Men Wo men 1/2 Avg.Risk 1.0 1.5 Avg.Risk 3.6 3.2 2X Avg.Risk 6.2 5.0 3X Avg.Risk 8.0 6.1 PATIENT WAS FASTINGP ERFORMED BY: BERNARD LabCoeileen Fjkwvo[address] [facility]in [place] [id number] TSH (65772)Ordered By: Joao m Plastic Manager on 11-11-2020 TSH Qn 3.280 {uIU/mL} Normal 0.450-4.500 [facility] Internal Medicine; [facility] Work Phone: Comment on above: do this lab in 2019; PATIENT WAS FASTINGPERFORMED BY: BERNARD [facility] Yxwdgg7614 [address] [facility]in [place] [id number] CBC W/AUTO DIFF WBC (26073)O rdered By: Investment Fund Manager on 07-30-2020 Basophils (Bld) [#/Vol] 0.1 {x10E3/uL} Normal 0.0-0.2 [facility] Work Phone: Comment on above: PATIENT WAS FASTINGP ERFORMED BY: BERNARD [facility] Lmbash3532 [facility] [id number] Basophils (Bld) [#/Vol] 0.1 10*3/uL Normal 0.0-0.2 [facility] Work Phone: Comment on above: PATIENT WAS FASTINGP ERFORMED BY: BERNARD Cortez[address] [id number] Basophils/100 WBC (Bld) 1 % Normal [facility] Work Phone: Comment on above: PATIENT WAS FASTINGP ERFORMED BY: BERNARD Cortez[address] [id number] Eosinophils (Bld) [#/Vol] 0.2 {x10E3/uL} Normal 0.0-0.4 [facility] Work Phone: Comment on above: PATIENT WAS FASTINGP ERFORMED BY: BERNARD Cortezlin6370 [facility] [id number] Eosinophils (Bld) [#/Vol] 0.2 10*3/uL Normal 0.0-0.4 [facility] Work Phone: Comment on above: PATIENT WAS FASTINGP ERFORMED BY: BERNARD [place] [id number] [facility] [id number] Eosinophils/100 WBC (Bld) 4 % Normal [facility] Work Phone: Comment on above: PATIENT WAS FASTINGP ERFORMED BY: BERNARD Cortezlin6370 [facility] [id number] Erythrocyte distribution width (RBC) [Ratio] 13.1 % Normal 11.7-15.4 [facility] Work Phone: Comment on above: PATIENT WAS FASTINGP ERFORMED BY: [facility]6370 [facility] [id number] Hematocrit (Bld) [Volume fraction] 39.6 % Normal 34.0-46.6 [facility] Work Phone: Comment on above: PATIENT WAS FASTINGP ERFORMED BY: [facility]St[facility] Nahhkb7587 [facility] [id number] Hemoglobin (Bld) [Mass/Vol] 13.1 g/dL Normal 11.1-15.9 [facility] Work Phone: Comment on above: PATIENT WAS FASTINGP ERFORMED BY: [address] [id number] Immature granulocytes (Bld) [#/Vol] 0.0 {x10E3/uL} Normal 0.0-0.1 [facility] Work Phone: Comment on above: PATIENT WAS FASTINGP ERFORMED BY: [address] [id number] Immature granulocytes (Bld) [#/Vol] 0.0 10*3/uL Normal 0.0-0.1 [facility] Work Phone: Comment on above: PATIENT WAS FASTINGP ERFORMED BY: LalitKatherine [place] [id number] [facility] [id number] Immature granulocytes/100 WBC (Bld) 0 % Normal [facility] Work Phone: Comment on above: PATIENT WAS FASTINGP ERFORMED BY: [place] [id number] [facility] [id number] Lymphocytes (Bld) [#/Vol] 1.9 {x10E3/uL} Normal 0.7-3.1 [facility] Work Phone: Comment on above: PATIENT WAS FASTINGP ERFORMED BY: [place] [id number] [facility] [id number] Lymphocytes (Bld) [#/Vol] 1.9 10*3/uL Normal 0.7-3.1 [facility] Work Phone: Comment on above: PATIENT WAS FASTINGP ERFORMED BY: BERNARD LabAniyah CortezAzllno3717 [facility] [id number] Lymphocytes/100 WBC (Bld) 37 % Normal [facility] Work Phone: Comment on above: PATIENT WAS FASTINGP ERFORMED BY: BERNARD LabAmbrosio Caghkc2617 [facility] [id number] MCH (RBC) [Entitic mass] 28.9 pg Normal 26.6-33.0 [facility] Internal Medicine Work Phone: Comment on above: PATIENT WAS FASTINGP ERFORMED BY: BERNARD [facility]6[address] [facility] [id number] MCHC (RBC) [Mass/Vol] 33.1 g/dL Normal 31.5-35.7 [facility] Work Phone: Comment on above: PATIENT WAS FASTINGP ERFORMED BY: BERNARD Cortezlin6370 [facility] [id number] MCV (RBC) [Entitic vol] 87 fL Normal 79-97 [facility] Work Phone: Comment on above: PATIENT WAS FASTINGP ERFORMED BY: BERNARD LabLaeileen CortezYxavjy7057 [facility] [id number] Monocytes (Bld) [#/Vol] 0.4 {x10E3/uL} Normal 0.1-0.9 [facility] Work Phone: Comment on above: PATIENT WAS FASTINGP ERFORMED BY: BERNARD LabH[facility]6[address] [facility] [id number] Monocytes (Bld) [#/Vol] 0.4 10*3/uL Normal 0.1-0.9 [facility] Work Phone: Comment on above: PATIENT WAS FASTINGP ERFORMED BY: BERNARD LabLaeileen Keidyp9488 [address] [facility] [id number] Monocytes/100 WBC (Bld) 9 % Normal [facility] Work Phone: Comment on above: PATIENT WAS FASTINGP ERFORMED BY: BERNARD [facility]St[facility] Pyeqoj5073 Jones RoadDublin [place] [id number] Neutrophils (Bld) [#/Vol] 2.5 {x10E3/uL} Normal 1.4-7.0 [facility] Work Phone: Comment on above: PATIENT WAS FASTINGP ERFORMED BY: BERNARD Cortezlin6370 Jones RoadDublin [place] [id number] Neutrophils (Bld) [#/Vol] 2.5 10*3/uL Normal 1.4-7.0 [facility] Work Phone: Comment on above: PATIENT WAS FASTINGP ERFORMED BY: BERNARD LabAniyah CortezKbiluq1225 Jones RoadDublin [place] [id number] Neutrophils/100 WBC (Bld) 49 % Normal [facility] Work Phone: Comment on above: PATIENT WAS FASTINGP ERFORMED BY: BERNARD Jiang6370 Jones RoadDublin [place] [id number] Platelets (Bld) [#/Vol] 337 {x10E3/uL} Normal 150-450 [facility] Work Phone: Comment on above: PATIENT WAS FASTINGP ERFORMED BY: BERNARD Cortezlin6370 [address] RoadDublin [place] [id number] Platelets (Bld) [#/Vol] 337 10*3/uL Normal 150-450 [facility] Work Phone: Comment on above: PATIENT WAS FASTINGP ERFORMED BY: BERNARD Cortezlin6370 [address] RoadDublin [place] [id number] RBC (Bld) [#/Vol] 4.53 {x10E6/uL} Normal 3.77-5.28 [facility] Internal Medicine Work Phone: Comment on above: PATIENT WAS FASTINGP ERFORMED BY: BERNARD LabAniyah CortezYhnomd3818 Jones RoadDublin [place] [id number] RBC (Bld) [#/Vol] 4.53 10*6/uL Normal 3.77-5.28 [facility] Internal Medicine Work Phone: Comment on above: PATIENT WAS FASTINGP ERFORMED BY: CB [facility] Kdyies6554 Jones RoadDublin [place] [id number] WBC (Bld) [#/Vol] 5.0 {x10E3/uL} Normal 3.4-10.8 [facility] Internal Medicine Work Phone: Comment on above: PATIENT WAS FASTINGP ERFORMED BY: CB [facility] Xmtoiz2420 [address] RoadDublin [place] [id number] WBC (Bld) [#/Vol] 5.0 10*3/uL Normal 3.4-10.8 [facility] Internal Medicine Work Phone: Comment on above: PATIENT WAS FASTINGP ERFORMED BY: BERNARD [facility] Rwtmcw3828 Jones RoadDublin [place] [id number] METABOLIC PANEL, COMPREHENSI VE ([id number])Ordered By: Investment Fund Manager on 07-30-2020 Albumin [Mass/Vol] 4.3 g/dL Normal 3.8-4.8 [facility] Internal Medicine Work Phone: Comment on above: PATIENT WAS FASTINGP ERFORMED BY: BERNARD [facility] Zkkeaf5890 Jones RoadDublin [place] [id number] Albumin/Globulin [Mass ratio] 1.7 {ratio} Normal 1.2-2.2 [facility] Internal Medicine Work Phone: Comment on above: PATIENT WAS FASTINGP ERFORMED BY: BERNARD [facility] Pjrbnr8195 Jones RoadDublin [place] [id number] ALP [Catalytic activity/Vol] 71 [iU]/L Normal 39-117 [facility] Internal Medicine Work Phone: Comment on above: PATIENT WAS FASTINGP ERFORMED BY: BERNARD [facility] Hffknz3143 Jones RoadDublin [place] [id number] ALP [Catalytic activity/Vol] 71 U/L Normal 39-117 [facility] Internal Medicine Work Phone: Comment on above: PATIENT WAS FASTINGP ERFORMED BY: BERNARD [facility] Qphaxm1722 Jones RoadDublin [place] [id number] ALT [Catalytic activity/Vol] 13 [iU]/L Normal 0-32 [facility] Work Phone: Comment on above: PATIENT WAS FASTINGP ERFORMED BY: BERNARD [facility] Kgmdae9136 Jones RoadDublin [place] [id number] ALT [Catalytic activity/Vol] 13 U/L Normal 0-32 [facility] Work Phone: Comment on above: PATIENT WAS FASTINGP ERFORMED BY: CB [facility] Wqsfpu3354 Jones RoadDublin [place] [id number] AST [Catalytic activity/Vol] 16 [iU]/L Normal 0-40 [facility] Work Phone: Comment on above: PATIENT WAS FASTINGP ERFORMED BY: CB [facility] Vhfvzq0356 Jones RoadDublin [place] [id number] AST [Catalytic activity/Vol] 16 U/L Normal 0-40 [facility] Internal Medicine Work Phone: Comment on above: PATIENT WAS FASTINGP ERFORMED BY: BERNARD [facility] Wewqpa5118 Jones RoadDublin [place] [id number] Bilirubin [Mass/Vol] 0.2 mg/dL Normal 0.0-1.2 [facility] Internal Medicine Work Phone: Comment on above: PATIENT WAS FASTINGP ERFORMED BY: BERNARD [facility] Twfpen1676 Jones RoadDublin [place] [id number] Calcium [Mass/Vol] 9.5 mg/dL Normal 8.7-10.3 [facility] Internal Medicine Work Phone: Comment on above: PATIENT WAS FASTINGP ERFORMED BY: CB [facility] Zvbrgf3172 [address] RoadDublin [place] [id number] Chloride [Moles/Vol] 102 mmol/L Normal 96-106 [facility] Internal Medicine Work Phone: Comment on above: PATIENT WAS FASTINGP ERFORMED BY: CB [facility] Olofnk9484 Jones RoadDublin [place] [id number] CO2 [Moles/Vol] 27 mmol/L Normal 20-29 [facility] Internal Medicine Work Phone: Comment on above: PATIENT WAS FASTINGP ERFORMED BY: CB [facility] Mfyfyd4660 Jones RoadDublin [place] [id number] Creatinine [Mass/Vol] 0.88 mg/dL Normal 0.57-1.00 [facility] Work Phone: Comment on above: PATIENT WAS FASTINGP ERFORMED BY: LabHills [facility]6370 [facility] [id number] GFR/1.73 sq M predicted among blacks CKD-EPI (S/P/Bld) [Vol rate/Area] 77 mL/min/1.73 Normal [facility] Work Phone: Comment on above: PATIENT WAS FASTINGP ERFORMED BY: LabH[facility]6370 [facility] [id number] GFR/1.73 sq M predicted among non-blacks CKD-EPI (S/P/Bld) [Vol rate/Area] 67 mL/min/1.73 Normal [facility] Work Phone: Comment on above: PATIENT WAS FASTINGP ERFORMED BY: [facility]6370 [facility] [id number] Globulin (S) [Mass/Vol] 2.6 g/dL Normal 1.5-4.5 [facility] Internal Medicine Work Phone: Comment on above: PATIENT WAS FASTINGP ERFORMED BY: LabH[facility]6370 [facility] [id number] Glucose [Mass/Vol] 90 mg/dL Normal 65-99 [facility] Internal Medicine Work Phone: Comment on above: PATIENT WAS FASTINGP ERFORMED BY: LabH[facility]6370 [facility] [id number] Potassium [Moles/Vol] 4.4 mmol/L Normal 3.5-5.2 [facility] Internal Medicine Work Phone: Comment on above: PATIENT WAS FASTINGP ERFORMED BY: LabH[facility]6370 [facility] [id number] Protein [Mass/Vol] 6.9 g/dL Normal 6.0-8.5 [facility] Internal Medicine Work Phone: Comment on above: PATIENT WAS FASTINGP ERFORMED BY: [facility] Cblkjq0113 [facility] [id number] Sodium [Moles/Vol] 142 mmol/L Normal 134-144 [facility] Internal Medicine Work Phone: Comment on above: PATIENT WAS FASTINGP ERFORMED BY: [facility] Qaamlh0073 [facility] [id number] Urea nitrogen [Mass/Vol] 20 mg/dL Normal 07-23 [facility] Work Phone: Comment on above: PATIENT WAS FASTINGP ERFORMED BY: [facility] Hkzrfx9833 [address] [facility] [id number] Urea nitrogen/Creatinine [Mass ratio] 23 mg/mg Normal 11-23 [facility] Work Phone: Comment on above: PATIENT WAS FASTINGP ERFORMED BY: [facility] Uzwrig2119 [facility] [id number] TSH (THYROID STIMULATING HOR MARCY) ([id number])Ordered By: Investment Fund Manager on 07-30-2020 TSH Qn 4.890 {uIU/mL} Abnormal 0.450-4.500 [facility] Internal Medicine Work Phone: Comment on above: PATIENT WAS FASTINGP ERFORMED BY: [facility] Pjzztv8289 [facility] [id number] CAIONon 05-19-2020 Calcium Ionized 1.26 mmol/L Normal 1.12-1.32 [facility] ([place]) Comment on above: Performed By: #### Abdulkadir MULLINS, CALCIT #### [address] [address] #### MG, PHOS, CMP, GFR, PTH #### [address] [address] CAIONon 05-06-2020 Calcium Ionized 1.06 mmol/L Low 1.12-1.32 [facility] ([place]) Comment on above: Performed By: #### Abdulkadir AIESTEFANY, CALCIT #### [address] [address] #### MG, PHOS, CMP, GFR, PTH #### [address] [address] Calcium Ionized 1.13 mmol/L Normal 1.12-1.32 [facility] ([place]) Comment on above: Performed By: #### C HARPREET, CALCIT #### [id number] [place], [place] [address] #### MG, PHOS, CMP, GFR, PTH #### [address] [address] Final Surgical Pathology Rep [facility] 05-06-2020 Final Surgical Pathology Report . Pathology Reports Accession: Collected Date/Time: Received Date/Time: Pathologist: [id number] 05/05/2020 11:20 EDT 05/05/2020 13:12 EDT LONDON UGALDE MD Final Surgical Pathology Report DIAGNOSIS: A) PARATHYROID TISSUE IDENTIFIED. B) PARATHYROID TISSUE IDENTIFIED. CLINICAL INFORMATION: Procedure: PARATHYROID EXPLORATION WITH REMOVAL OF LEFT ADENOMA WITH PARATHYROID HORMONE MONITORING Preoperative diagnosis: PRIMARY HYPERPARATHYROIDISM Postoperative diagnosis: PRIMARY HYPERPARATHYROIDISM SPECIMEN: A PARATHYROID - RIGHT INFERIOR - FROZEN SECTION B PARATHYROID TISSUE - RIGHT INFERIOR INTRAOPERATIVE CONSULTATION: A) FS: PARATHYROID TISSUE IDENTIFIED. dictated by Pradeep Ugalde M.D. GROSS DESCRIPTION: A. Received fresh for frozen section, labeled with the patients name, Case #[id number], and right inferior parathyroid is a pink-lake fragment of soft tissue measuring 0.4 x 0.4 cm. AFS 1 -frozen section tissue resubmitted B. Received in formalin labeled parathyroid tissue is a read -orange fragment of soft tissue measuring 1 x 0.6 x 0.3 cm. TS -1. Dictated by CHRISTIANO ALBERT MICROSCOPIC DESCRIPTION: Slides reviewed. Electronically Signed by Pathology Report verified by [facility] Electronically signed by LONDON GUALDE Sign out Date: 05/06/2020 14:39 Performing Lab: [address] Normal [facility] ([place]) Comment on above: Performed By: #### C HARPREET, CALCIT #### [id number] [place], [place] [address] #### MG, PHOS, CMP, GFR, PTH #### [address] [address] .Auto Diffon 05-05-2020 Ammonia (P) [Mass/Vol] 0.70 10 3/mcL Normal 0.09-1.40 [facility] ([place]) Comment on above: Performed By: #### C AION, CALCIT #### [address] [address] #### MG, PHOS, CMP, GFR, PTH #### [address] [address] Basophils (Bld) [#/Vol] 0.00 10 3/mcL Normal 0.00-0.27 [facility] ([place]) Comment on above: Performed By: #### C AION, CALCIT #### [place] [address] #### MG, PHOS, CMP, GFR, PTH #### [place] [address] Basophils/100 WBC (Bld) 0.5 % Normal 0.0-2.5 [facility] ([place]) Comment on above: Performed By: #### C AION, CALCIT #### [place] [address] #### MG, PHOS, CMP, GFR, PTH #### [address] [address] Eosinophils (Bld) [#/Vol] 0.10 10 3/mcL Normal 0.00-0.65 [facility] ([place]) Comment on above: Performed By: #### C AION, CALCIT #### [place] [address] #### MG, PHOS, CMP, GFR, PTH #### [place] [id number] Eosinophils/100 WBC (Bld) 1.2 % Normal 0.0-6.0 [facility] ([place]) Comment on above: Performed By: #### C AION, CALCIT #### [place] [address] #### MG, PHOS, CMP, GFR, PTH #### [address] [address] Lymphocytes (Bld) [#/Vol] 1.10 10 3/mcL Normal 0.90-4.32 [facility] ([place]) Comment on above: Performed By: #### C AION, CALCIT #### [address] [address] #### MG, PHOS, CMP, GFR, PTH #### [address] [address] Lymphocytes/100 WBC (Bld) 14.8 % Low 20.0-40.0 [facility] ([place]) Comment on above: Performed By: #### C VILLAON, CALCIT #### [address] [address] #### MG, PHOS, CMP, GFR, PTH #### [address] [address] Monocytes/100 WBC (Bld) 9.1 % Normal 2.0-13.0 [facility] ([place]) Comment on above: Performed By: #### C VILLAON, CALCIT #### [address] [address] #### MG, PHOS, CMP, GFR, PTH #### [address] [address] Neutrophils/100 WBC (Bld) 74.4 % Normal 50.0-75.0 [facility] ([place]) Comment on above: Performed By: #### C AION, CALCIT #### [address] [address] #### MG, PHOS, CMP, GFR, PTH #### [address] [address] .GFRon 05-05-2020 GFR >60 Normal [facility] ([place]) Comment on above: Result Comment: GFR Population mean for , Non- Americans Ages 20-29 = 116 mL/min/1.73 sq.m. Ages 30-39 = 107 mL/min/1.73 sq.m. Ages 40-49 = 99 mL/min/1.73 sq.m. Ages 50-59 = 93 mL/min/1.73 sq.m. Ages 60-69 = 85 mL/min/1.73 sq.m. Ages 70+ = 75 mL/min/1.73 sq.m. Chronic Kidney Disease: Less than 60 mL/min/1.73 square meters End Stage Renal Disease: Less than 15 mL/min/1.73 square meters Performed By: #### ALEXANDRA BRENNAN #### [place] [address] #### MG, PHOS, CMP, GFR, PTH #### [address] [address] GFR Non- >60 Normal [facility] ([place]) Comment on above: Result Comment: GFR Population mean for , Non- Americans Ages 20-29 = 116 mL/min/1.73 sq.m. Ages 30-39 = 107 mL/min/1.73 sq.m. Ages 40-49 = 99 mL/min/1.73 sq.m. Ages 50-59 = 93 mL/min/1.73 sq.m. Ages 60-69 = 85 mL/min/1.73 sq.m. Ages 70+ = 75 mL/min/1.73 sq.m. Chronic Kidney Disease: Less than 60 mL/min/1.73 square meters End Stage Renal Disease: Less than 15 mL/min/1.73 square meters Performed By: #### ALEXANDRA BRENNAN #### [place] [address] #### MG, PHOS, CMP, GFR, PTH #### [place] [id number] .NEUABSon 05-05-2020 Neutrophils (Bld) [#/Vol] 5.50 10 3/mcL Normal 2.25-8.10 [facility] ([place]) Comment on above: Performed By: #### ALEXANDRA BRENNAN #### [address] [address] #### MG, PHOS, CMP, GFR, PTH #### [address] [address] APTTon 05-05-2020 aPTT Coag (Bld) [Time] 35.8 s High 25.0-35.0 [facility] ([place]) Comment on above: Result Comment: For Heparin anticoagulation therapy, the recommended therapeutic range is: 54-77 seconds (APTT Correlation with Anti-Xa therapeutic range of 0.3-0.7 units/ml). PLEASE REFERENCE THE PHARMACY PROTOCOL FOR DOSING. Performed By: #### C AION, CALCIT #### [place] [address] #### MG, PHOS, CMP, GFR, PTH #### [place] [address] aPTT Coag (Bld) [Time] Unknown Normal [facility] ([place]) Comment on above: Performed By: #### Abdulkadir AION, CALCIT #### [place] [address] #### MG, PHOS, CMP, GFR, PTH #### [place] [address] CBCon 05-05-2020 Erythrocyte distribution width (RBC) [Ratio] 13.8 % Normal 11.5-15.5 [facility] ([place]) Comment on above: Performed By: #### Abdulkadir AION, CALCIT #### [place] [address] #### MG, PHOS, CMP, GFR, PTH #### [place] [address] Hematocrit (Bld) [Volume fraction] 37.4 % Normal 34.0-46.0 [facility] ([place]) Comment on above: Performed By: #### C AION, CALCIT #### [place] [address] #### MG, PHOS, CMP, GFR, PTH #### [place] [address] Hemoglobin (Bld) [Mass/Vol] 12.7 G/dL Normal 12.0-16.0 [facility] ([place]) Comment on above: Performed By: #### C AION, CALCIT #### [place] [address] #### MG, PHOS, CMP, GFR, PTH #### [address] [address] MCH (RBC) [Entitic mass] 29.8 pg Normal 27.0-33.0 [facility] ([place]) Comment on above: Performed By: #### Abdulkadir MULLINS, CALCIT #### [place] [address] #### MG, PHOS, CMP, GFR, PTH #### [address] [address] MCHC (RBC) [Mass/Vol] 33.9 G/dL Normal 32.0-36.0 [facility] ([place]) Comment on above: Performed By: #### Abdulkadir MULLINS, CALCIT #### [place] [address] #### MG, PHOS, CMP, GFR, PTH #### [address] [address] MCV (RBC) [Entitic vol] 87.7 fL Normal 80.0-99.0 [facility] ([place]) Comment on above: Performed By: #### Abdulkadir MULLINS, CALCIT #### [place] [address] #### MG, PHOS, CMP, GFR, PTH #### [place] [address] Platelet mean volume (Bld) [Entitic vol] 7.6 fL Normal 6.6-10.5 [facility] ([place]) Comment on above: Performed By: #### C HARPREET, CALCIT #### [place] [address] #### MG, PHOS, CMP, GFR, PTH #### [address] [address] Platelets (Bld) [#/Vol] 256 10 3/mcL Normal 150-450 [facility] ([place]) Comment on above: Performed By: #### C VILLAON, CALCIT #### [place] [address] #### MG, PHOS, CMP, GFR, PTH #### [place] [address] RBC (Bld) [#/Vol] 4.26 10 6/mcL Normal 4.10-5.30 [facility] ([place]) Comment on above: Performed By: #### Abdulkadir MULLINS, CALCIT #### [place] [address] #### MG, PHOS, CMP, GFR, PTH #### [place] [address] WBC (Bld) [#/Vol] 7.40 10 3/mcL Normal 4.50-10.80 [facility] ([place]) Comment on above: Performed By: #### Abdulkadir MULLINS, CALCIT #### [place] [address] #### MG, PHOS, CMP, GFR, PTH #### [place] [address] CMPon 05-05-2020 Albumin/Globulin [Mass ratio] 1.1 {ratio} Normal 0.9-1.6 [facility] ([place]) Comment on above: Performed By: #### Abdulkadir MULLINS, CALCIT #### [place] [address] #### MG, PHOS, CMP, GFR, PTH #### [place] [address] ALP [Catalytic activity/Vol] 84 U/L Normal 38-126 [facility] ([place]) Comment on above: Performed By: #### Abdulkadir MULLINS, CALCIT #### [place] [address] #### MG, PHOS, CMP, GFR, PTH #### [place] [address] Bili Total 0.6 mg/dL Normal 0.2-1.2 [facility] ([place]) Comment on above: Result Comment: Use of this assay is not recommended for patients undergoing treatment with eltrombopag due to the potential for falsely elevated results. Performed By: #### C AION, CALCIT #### [address] [address] #### MG, PHOS, CMP, GFR, PTH #### [address] [address] Globulin (S) [Mass/Vol] 3.4 G/dL Normal 1.5-3.8 [facility] ([place]) Comment on above: Performed By: #### C AION, CALCIT #### [place] [id number] #### MG, PHOS, CMP, GFR, PTH #### [address] [address] Protein [Mass/Vol] 7.0 G/dL Normal 6.0-8.5 [facility] ([place]) Comment on above: Performed By: #### Abdulkadir MULLINS, CALCIT #### [place] [address] #### MG, PHOS, CMP, GFR, PTH #### [address] [address] Albumin [Mass/Vol] 3.6 G/dL Normal 3.2-4.8 [facility] ([place]) Comment on above: Performed By: #### Abdulkadir MULLINS, CALCIT #### [place] [address] #### MG, PHOS, CMP, GFR, PTH #### [address] [address] ALT [Catalytic activity/Vol] 17 U/L Normal 10-49 [facility] ([place]) Comment on above: Performed By: #### C AION, CALCIT #### [place] [id number] #### MG, PHOS, CMP, GFR, PTH #### [address] [address] AST [Catalytic activity/Vol] 11 U/L Normal 8-34 [facility] ([place]) Comment on above: Performed By: #### C AION, CALCIT #### [address] [address] #### MG, PHOS, CMP, GFR, PTH #### [address] [address] Calcium [Mass/Vol] 9.2 mg/dL Normal 8.4-10.1 [facility] ([place]) Comment on above: Performed By: #### C AION, CALCIT #### [address] [address] #### MG, PHOS, CMP, GFR, PTH #### [address] [address] Chloride [Moles/Vol] 107 mmol/L Normal 98-110 [facility] ([place]) Comment on above: Performed By: #### C AION, CALCIT #### [place] [address] #### MG, PHOS, CMP, GFR, PTH #### [address] [address] CO2 [Moles/Vol] 27 mmol/L Normal 22-32 [facility] ([place]) Comment on above: Performed By: #### C AION, CALCIT #### [address] [address] #### MG, PHOS, CMP, GFR, PTH #### [address] [address] Creatinine [Mass/Vol] 0.66 mg/dL Normal 0.50-1.20 [facility] ([place]) Comment on above: Performed By: #### C AION, CALCIT #### [address] [address] #### MG, PHOS, CMP, GFR, PTH #### [address] [address] Electrolyte Balance 5.0 mEq/L Normal 4.0-15.0 [facility] ([place]) Comment on above: Performed By: #### C AION, CALCIT #### [address] [address] #### MG, PHOS, CMP, GFR, PTH #### [address] [address] Glucose [Mass/Vol] 96 mg/dL Normal 82-115 [facility] ([place]) Comment on above: Performed By: #### C AION, CALCIT #### [address] [address] #### MG, PHOS, CMP, GFR, PTH #### [address] [address] Potassium [Moles/Vol] 4.3 mmol/L Normal 3.5-5.0 [facility] ([place]) Comment on above: Performed By: #### C AION, CALCIT #### [address] [address] #### MG, PHOS, CMP, GFR, PTH #### [address] [address] Sodium [Moles/Vol] 139 mmol/L Normal 136-145 [facility] ([place]) Comment on above: Performed By: #### C AION, CALCIT #### [address] [address] #### MG, PHOS, CMP, GFR, PTH #### [address] [address] Urea nitrogen [Mass/Vol] 18.0 mg/dL Normal 8.0-22.0 [facility] ([place]) Comment on above: Performed By: #### C AION, CALCIT #### [address] [address] #### MG, PHOS, CMP, GFR, PTH #### [address] [address] Urea nitrogen/Creatinine [Mass ratio] 27.3 ratio High 10.0-22.0 [facility] ([place]) Comment on above: Performed By: #### C AION, CALCIT #### [address] [address] #### MG, PHOS, CMP, GFR, PTH #### [facility] [address] [place] [address] FIBon 05-05-2020 Fibrinogen 611 mg/dL High 250-550 [facility] ([place]) Comment on above: Performed By: #### C VILLAON, CALCIT #### [address] [address] #### MG, PHOS, CMP, GFR, PTH #### [address] [address] PROon 05-05-2020 INR Coag (PPP) [Relative time] 1.0 {INR} Normal [facility] ([place]) Comment on above: Result Comment: [employer] [employer] (CHEST, 1992, 102:312S-25S) recommended therapeutic range for oral anticoagulant therapy is: LOW RISK: Prophylaxis of venous thrombosis INR: 2.0-3.0 Treatment of pulmonary embolism 2.0-3.0 Prevention of systemic embolism 2.0-3.0 HIGH RISK: Mechanical prosthetic valves 2.5-3.5 Performed By: #### C HARPREET, CALCIT #### [address] [address] #### MG, PHOS, CMP, GFR, PTH #### [address] [address] PT Coag (PPP) [Time] 11.3 s Normal 9.0-14.6 [facility] ([place]) Comment on above: Result Comment: Effe ctive 06/10/08, Protime results may be affected by some antibiotics (i.e. Ciprofloxacin, Azithromycin, Bactrim) which may potentiate the action of oral anticoagulants, with further increases in Protime/INR. Performed By: #### C HARPREET, CALCIT #### [address] [address] #### MG, PHOS, CMP, GFR, PTH #### [address] [address] PTHORon 05-05-2020 PTH, Intraoperative 28.3 pg/mL Normal 18.4-80.1 [facility] ([place]) Comment on above: Performed By: #### C AION, CALCIT #### [address] [address] #### MG, PHOS, CMP, GFR, PTH #### [address] [address] PTH, Intraoperative 150.0 pg/mL High 18.4-80.1 [facility] ([place]) Comment on above: Result Comment: Base line Specimen Performed By: #### C AION, CALCIT #### [address] [address] #### MG, PHOS, CMP, GFR, PTH #### [place] [address] CALCon 11-15-2019 Calcitonin Level <2.0 Normal [facility] ([place]) Comment on above: Result Comment: Refe rence range: 0.0 to 5.1 Unit: pg/mL (NOTE) INTERPRETIVE INFORMATION: Calcitonin Calcitonin levels greater than 100 pg/mL may occur in the following conditions: medullary thyroid carcinomas (MTC), leukemias, and myeloproliferative disorders. Provocative testing (calcium) is suggested in patients with MTC if the calcitonin is not clearly diagnostic. The Siemens Immulite 2000 method is used. Results obtained with different assay methods or kits cannot be used interchangeably. Calcitonin is useful in monitoring medullary thyroid carcinoma. The calcitonin assay value, regardless of level, should not be interpreted as absolute evidence of the presence or absence of malignant disease. Performed by [employer], [address] [place] [id number] [email or web address], Casey Holt MD, Lab. Director Performed By: #### C AION, CALCIT #### [address] [address] #### MG, PHOS, CMP, GFR, PTH #### [address] [address] VIDDHon 11-15-2019 Vit. D 1,25 Dihydro. 64.1 pg/mL High 15.0-60.0 [facility] ([place]) Comment on above: Result Comment: This test was developed and its performance characteristics determined by [facility]'s [facility] [place] ([facility]). It has not been cleared or approved by the FDA. [facility] is regulated under CLIA as qualified to perform high complexity testing. This test is used for clinical purposes. It should not be regarded as investigational or for research. Performed By: [place] [address] [employer] Supervisor: Anthony Bell III, M.D. CLIA#: [id number] Phone#: Performed By: #### 1 25VTD #### [address] [address] Vitamin D2 1,25 <4.0 Normal [facility] ([place]) Comment on above: Result Comment: Perf ormed By: [place] [address] [employer] Supervisor: Anthony Bell III, M.D. CLIA#: [id number] Phone#: Performed By: #### 1 25VTD #### [address] [address] Vitamin D3 1,25 64.1 pg/mL Normal [facility] ([place]) Comment on above: Result Comment: Perf ormed By: [place] [address] [employer] Supervisor: Anthony Bell III, M.D. CLIA#: [id number] Phone#: Performed By: #### 1 25VTD #### [address] [address] [id number] 11-13-2019 X-Link N-telopeptide 25.5 nmol/mmol Cr Normal 14.4-75. 0 [facility] ([place]) Comment on above: Result Comment: Perf ormed By: [place] [address] [employer] Supervisor: Anthony Bell III, M.D. CLIA#: [id number] Phone#: Performed By: #### U NTX2 #### [address] [address] PTHon 11-12-2019 PTH, Intact 96.2 pg/mL High 18.5-88.0 [facility] ([place]) Comment on above: Performed By: #### C HARPREET, CALCIT #### [address] [address] #### MG, PHOS, CMP, GFR, PTH #### [address] [address] .GFRon 11-11-2019 GFR Non- 84 ml/min/1.73sqm Normal [facility] ([place]) Comment on above: Result Comment: GFR Population mean for , Non- Americans Ages 20-29 = 116 mL/min/1.73 sq.m. Ages 30-39 = 107 mL/min/1.73 sq.m. Ages 40-49 = 99 mL/min/1.73 sq.m. Ages 50-59 = 93 mL/min/1.73 sq.m. Ages 60-69 = 85 mL/min/1.73 sq.m. Ages 70+ = 75 mL/min/1.73 sq.m. Chronic Kidney Disease: Less than 60 mL/min/1.73 square meters End Stage Renal Disease: Less than 15 mL/min/1.73 square meters Performed By: #### C HARPREET, CALCIT #### [address] [address] #### MG, PHOS, CMP, GFR, PTH #### [address] [address] GFR 102 ml/min/1.73sqm Normal [facility] ([place]) Comment on above: Result Comment: GFR Population mean for , Non- Americans Ages 20-29 = 116 mL/min/1.73 sq.m. Ages 30-39 = 107 mL/min/1.73 sq.m. Ages 40-49 = 99 mL/min/1.73 sq.m. Ages 50-59 = 93 mL/min/1.73 sq.m. Ages 60-69 = 85 mL/min/1.73 sq.m. Ages 70+ = 75 mL/min/1.73 sq.m. Chronic Kidney Disease: Less than 60 mL/min/1.73 square meters End Stage Renal Disease: Less than 15 mL/min/1.73 square meters Performed By: #### C AION, CALCIT #### [place] [address] #### MG, PHOS, CMP, GFR, PTH #### [place] [address] CAIONon 11-11-2019 Calcium Ionized 1.34 mmol/L High 1.12-1.32 [facility] ([place]) Comment on above: Performed By: #### C AION, CALCIT #### [place] [address] #### MG, PHOS, CMP, GFR, PTH #### [place] [address] CMPon 11-11-2019 Albumin [Mass/Vol] 3.9 G/dL Normal 3.4-4.8 [facility] ([place]) Comment on above: Performed By: #### C AION, CALCIT #### [place] [address] #### MG, PHOS, CMP, GFR, PTH #### [place] [address] Albumin/Globulin [Mass ratio] 1.2 {ratio} Normal 1.1-2.5 [facility] ([place]) Comment on above: Performed By: #### C AION, CALCIT #### [place] [address] #### MG, PHOS, CMP, GFR, PTH #### [place] [address] ALP [Catalytic activity/Vol] 81 U/L Normal 40-135 [facility] ([place]) Comment on above: Performed By: #### C AION, CALCIT #### [place] [address] #### MG, PHOS, CMP, GFR, PTH #### [address] [address] ALT [Catalytic activity/Vol] 25 U/L Normal 10-35 [facility] ([place]) Comment on above: Performed By: #### C AION, CALCIT #### [address] [address] #### MG, PHOS, CMP, GFR, PTH #### [address] [address] AST [Catalytic activity/Vol] 15 U/L Normal 10-40 [facility] ([place]) Comment on above: Performed By: #### C AION, CALCIT #### [place] [address] #### MG, PHOS, CMP, GFR, PTH #### [address] [address] Bili Total 0.2 mg/dL Normal 0.2-1.0 [facility] ([place]) Comment on above: Performed By: #### C AION, CALCIT #### [place] [address] #### MG, PHOS, CMP, GFR, PTH #### [address] [address] Calcium [Mass/Vol] 10.2 mg/dL Normal 8.4-10.2 [facility] ([place]) Comment on above: Performed By: #### C AION, CALCIT #### [place] [address] #### MG, PHOS, CMP, GFR, PTH #### [address] [address] Chloride [Moles/Vol] 104 mmol/L Normal 98-107 [facility] ([place]) Comment on above: Performed By: #### C AION, CALCIT #### [place] [address] #### MG, PHOS, CMP, GFR, PTH #### [address] [address] CO2 [Moles/Vol] 28 mmol/L Normal 23-31 [facility] ([place]) Comment on above: Performed By: #### C AION, CALCIT #### [address] [address] #### MG, PHOS, CMP, GFR, PTH #### [place] [address] Creatinine [Mass/Vol] 0.69 mg/dL Normal 0.55-1.02 [facility] ([place]) Comment on above: Performed By: #### C AION, CALCIT #### [address] [address] #### MG, PHOS, CMP, GFR, PTH #### [place] [address] Electrolyte Balance 8.0 mEq/L Normal [facility] ([place]) Comment on above: Performed By: #### C AION, CALCIT #### [place] [address] #### MG, PHOS, CMP, GFR, PTH #### [place] [address] Globulin (S) [Mass/Vol] 3.2 G/dL Normal [facility] ([place]) Comment on above: Performed By: #### C AION, CALCIT #### [place] [address] #### MG, PHOS, CMP, GFR, PTH #### [place] [address] Glucose [Mass/Vol] 92 mg/dL Normal 80-115 [facility] ([place]) Comment on above: Performed By: #### C AION, CALCIT #### [place] [address] #### MG, PHOS, CMP, GFR, PTH #### [place] [address] Potassium [Moles/Vol] 4.1 mmol/L Normal 3.5-5.1 [facility] ([place]) Comment on above: Performed By: #### C AION, CALCIT #### [address] [address] #### MG, PHOS, CMP, GFR, PTH #### [address] [address] Protein [Mass/Vol] 7.1 G/dL Normal 6.4-8.2 [facility] ([place]) Comment on above: Performed By: #### C AION, CALCIT #### [address] [address] #### MG, PHOS, CMP, GFR, PTH #### [address] [address] Sodium [Moles/Vol] 140 mmol/L Normal 136-145 [facility] ([place]) Comment on above: Performed By: #### C AION, CALCIT #### [address] [address] #### MG, PHOS, CMP, GFR, PTH #### [address] [address] Urea nitrogen [Mass/Vol] 18 mg/dL Normal 7-18 [facility] ([place]) Comment on above: Performed By: #### C AION, CALCIT #### [address] [address] #### MG, PHOS, CMP, GFR, PTH #### [address] [address] Urea nitrogen/Creatinine [Mass ratio] 26 ratio Normal 7-27 [facility] ([place]) Comment on above: Performed By: #### C AION, CALCIT #### [address] [address] #### MG, PHOS, CMP, GFR, PTH #### [address] [address] MGon 11-11-2019 Magnesium [Mass/Vol] 2.1 mg/dL Normal 1.8-2.4 [facility] ([place]) Comment on above: Performed By: #### C AION, CALCIT #### [address] [address] #### MG, PHOS, CMP, GFR, PTH #### [address] [address] PHOSon 11-11-2019 Phosphate [Mass/Vol] 4.1 mg/dL Normal 2.3-4.1 [facility] ([place]) Comment on above: Performed By: #### C AION, CALCIT #### [address] [address] #### MG, PHOS, CMP, GFR, PTH #### [address] [address] [place] MAMMOGRAM SCREENING BILAT ERAL W/TOMOon 08-22-2019 MA MAMMOGRAM SCREENING BILATERAL W/JOEY ORIGINAL FROM: [address] [address] PROCEDURE FOR: NAVEEN FUENTES [address] [place], [place] [id number] Home: PID#: [id number] Exam#: [id number] : 1950 Age: 69 TO: [place] [id number] #[id number] BILATERAL DIGITAL SCREENING MAMMOGRAM 3D/2D WITH CAD WITH MEDIOLATERAL OBLIQUE CRANIOCAUDAL: 08/22/2019 Comparison is made to exams dated: 07/16/2018 mammogram and 04/04/2016 mammogram - [facility]. The tissue of both breasts is heterogeneously dense. Current study was also evaluated with a Computer Aided Detection (CAD) system. There are benign calcifications in both breasts. No significant masses, calcifications, or other findings are seen in either breast. There has been no significant interval change. IMPRESSION: BENIGN There is no mammographic evidence of malignancy. A 1 year screening mammogram is recommended.( 0) JOSEFINA alcaraz/penrad:08/22/2019 16:55:00 Supervisor Sample(s): ALVINO COTO, RT(R)(M)(CT) [facility], [facility] letter sent: Normal BI-RADS 1&2 Mammogram BI-RADS: 2 Benign Normal [facility] ([place]) Vital Signs Date Time Vital Sign Value Performing Clinician Facility 02-22-2024 13:21-0400 Body temperature 98.6 [degF] Dr. Jennifer Romeo Work Phone: [facility] 02-22-2024 13:21-0400 Diastolic blood pressure 93 mm[Hg] Dr. Jennifer Romeo Work Phone: [facility] 02-22-2024 13:21-0400 Heart rate 72 /min Dr. Jennifer Romeo Work Phone: [facility] 02-22-2024 13:21-0400 Respiratory rate 18 /min Dr. Jennifer Romeo Work Phone: [facility] 02-22-2024 13:21-0400 SaO2% (BldA) [Mass fraction] 99 % Dr. Jennifer Romeo Work Phone: [facility] 02-22-2024 13:21-0400 Systolic blood pressure 179 mm[Hg] Dr. Jennifer Romeo Work Phone: [facility] 02-21-2024 16:45-0400 Body height 154.[address] Jennifer Romeo Work Phone: [facility] 02-21-2024 11:42-0400 Body mass index (BMI) [Ratio] 21.2 kg/m2 Dr. Jennifer Romeo Work Phone: [facility] 02-21-2024 11:42-0400 Body weight [address] Jennifer Romeo Work Phone: [facility] 02-21-2024 11:42-0400 Inhaled oxygen flow rate 4 L/min Dr. Jennifer Romeo Work Phone: [facility] 09-14-2023 08:06-0400 Body height 154.94 cm EMILY Alejandra LPN [facility]; [facility] Work Phone: 09-14-2023 08:06-0400 Body mass index (BMI) [Ratio] 20.41 kg/m2 EMILY Alejandra DYLAN [facility]; [facility] Work Phone: 09-14-2023 08:06-0400 Body surface area Derived from formula 1.45 m2 EMILYALFREDITO Alejandra LPN [facility]; [facility] Work Phone: 09-14-2023 08:06-0400 Body temperature 97.6 [degF] EMILY Alejandra DYLAN [facility]; [facility] Work Phone: Comment on above: Method: Temporal 09-14-2023 08:06-0400 Body weight 48.99 kg EMILY Alejandra DYLAN [facility]; [facility] Work Phone: 09-14-2023 08:06-0400 Diastolic blood pressure 84 mm[Hg] EMILY Alejandra DYLAN [facility]; [facility] Work Phone: Comment on above: Patient Position: Sitting; Cuff Location : Left Arm; Cuff Size: Standard 09-14-2023 08:06-0400 Heart rate 94 /min EMILY Alejandra DYLAN [facility]; [facility] Work Phone: Comment on above: Pattern: Regular 09-14-2023 08:06-0400 Respiratory rate 18 /min EMILY Alejandra [facility]; [facility] Work Phone: Comment on above: Pattern: Unlabored 09-14-2023 08:06-0400 SaO2% (BldA) [Mass fraction] 99 % EMILY Alejandra DYLAN [facility]; [facility] Work Phone: Comment on above: Room air 09-14-2023 08:06-0400 Systolic blood pressure 134 mm[Hg] EMILY Alejandra DYLAN [facility]; [facility] Work Phone: Comment on above: Patient Position: Sitting; Cuff Location : Left Arm; Cuff Size: Standard 03-13-2023 08:10-0400 Body temperature 96.9 [degF] Benjamin Vazquez [facility] Work Phone: 03-13-2023 08:10-0400 Body weight 49.16 kg [facility]; [facility] Work Phone: 03-13-2023 08:10-0400 Diastolic blood pressure 68 mm[Hg] [facility]; [facility] Work Phone: Comment on above: Patient Position: Sitting; Cuff Location : Left Arm; Cuff Size: Standard 03-13-2023 08:10-0400 Heart rate 63 /[facility]; [facility] Work Phone: Comment on above: Pattern: Regular 03-13-2023 08:10-0400 Respiratory rate 16 /min Benjamin Vazquez [facility]; [facility] Work Phone: Comment on above: Pattern: Unlabored 03-13-2023 08:10-0400 SaO2% (BldA) [Mass fraction] 96 % [facility]; [facility] Work Phone: Comment on above: Room air 03-13-2023 08:10-0400 Systolic blood pressure 114 mm[Hg] Benjamin Vazquez [facility]; [facility] Work Phone: Comment on above: Patient Position: Sitting; Cuff Location : Left Arm; Cuff Size: Standard 12-22-2022 10:35-0500 Body weight 48.31 kg [facility]; [facility] Work Phone: 12-01-2022 13:11-050 Body height 154.94 cm [facility]; [facility] Work Phone: 12-01-2022 13:11-0500 Body mass index (BMI) [Ratio] 21.21 kg/m2 [facility]; [facility] Work Phone: 01-05-2023 13:11-0500 Body surface area Derived from formula 1.48 m2 Benjamin Vazquez [facility]; [facility] Work Phone: 12-01-2022 13:11-0500 Body temperature 98.5 [degF] Benjamin Vazquez [facility]; [facility] Work Phone: 12-01-2022 13:11-0500 Body weight 50.92 kg Benjamin Vazquez [facility]; [facility] Work Phone: 12-01-2022 13:11-0500 Diastolic blood pressure 80 mm[Hg] Benjamin Vazquez [facility]; [facility] Work Phone: Comment on above: Patient Position: Sitting; Cuff Location : Left Arm; Cuff Size: Standard 12-01-2022 13:11-0500 Heart rate 73 /min Benjamin Vazquez [facility]; [facility] Work Phone: Comment on above: Pattern: Regular 12-01-2022 13:11-0500 Respiratory rate 18 /min Benjamin Vazquez [facility]; [facility] Work Phone: Comment on above: Pattern: Unlabored 12-01-2022 13:11-0500 SaO2% (BldA) [Mass fraction] 99 % Benjamin Vazquez [facility]; [facility] Work Phone: Comment on above: Room air 12-01-2022 13:11-0500 Systolic blood pressure 142 mm[Hg] Benjamin Vazquez [facility]; [facility] Work Phone: Comment on above: Patient Position: Sitting; Cuff Location : Left Arm; Cuff Size: Standard 11-17-2022 09:52-0500 Body height 154.94 cm Marisol Suazo MA [facility]; [facility] Work Phone: 11-17-2022 09:52-0500 Body mass index (BMI) [Ratio] 21.02 kg/m2 Marisol Suazo MA [facility]; [facility] Work Phone: 11-17-2022 09:52-0500 Body surface area Derived from formula 1.47 m2 Marisol Suazo MA [facility]; [facility] Work Phone: 11-17-2022 09:52-0500 Body temperature 97.1 [degF] Marisol Suazo MA [facility]; [facility] Work Phone: Comment on above: Method: Temporal 11-17-2022 09:52-0500 Body weight 50.46 kg Marisol Suazo MA [facility]; [facility] Work Phone: 11-17-2022 09:52-0500 Diastolic blood pressure 96 mm[Hg] Marisol Suazo MA [facility]; [facility] Work Phone: Comment on above: Patient Position: Sitting; Cuff Location : Left Arm; Cuff Size: Standard 11-17-2022 09:52-0500 Heart rate 89 /min Marisol Suazo MA [facility]; [facility] Work Phone: Comment on above: Pattern: Regular 11-17-2022 09:52-0500 Respiratory rate 16 /min Marisol Suazo MA [facility]; [facility] Work Phone: Comment on above: Pattern: Unlabored 11-17-2022 09:52-0500 SaO2% (BldA) [Mass fraction] 97 % Marisol Suazo MA [facility]; [facility] Work Phone: Comment on above: Room air 11-17-2022 09:52-0500 Systolic blood pressure 144 mm[Hg] Marisol Suazo MA [facility]; [facility] Work Phone: Comment on above: Patient Position: Sitting; Cuff Location : Left Arm; Cuff Size: Standard 09-05-2022 08:08-0400 Body height 154.94 cm Minoo Reyes [facility]; [facility] Work Phone: 09-05-2022 08:08-0400 Body mass index (BMI) [Ratio] 21.78 kg/m2 Minoo Reyes [facility]; [facility] Work Phone: 09-05-2022 08:08-0400 Body surface area Derived from formula 1.49 m2 Minoo Reyes [facility]; [facility] Work Phone: 09-05-2022 08:08-0400 Body temperature 97.3 [degF] Minoo Reyes CMA [facility]; [facility] Work Phone: Comment on above: Method: Infrared 09-05-2022 08:08-0400 Body weight 52.28 kg Minoo Reyes [facility]; [facility] Work Phone: 09-05-2022 08:08-0400 Diastolic blood pressure 90 mm[Hg] Minoo Reyes [facility]; [facility] Work Phone: Comment on above: Patient Position: Sitting; Cuff Location : Left Arm; Cuff Size: Standard 09-05-2022 08:08-0400 Heart rate 77 /min Minoo Reyes [facility]; [facility] Work Phone: Comment on above: Pattern: Regular 09-05-2022 08:08-0400 Respiratory rate 16 /min Minoo Reyes [facility]; [facility] Work Phone: Comment on above: Pattern: Unlabored 09-05-2022 08:08-0400 SaO2% (BldA) [Mass fraction] 97 % Minoo Reyes [facility]; [facility] Work Phone: Comment on above: Room air 09-05-2022 08:08-0400 Systolic blood pressure 122 mm[Hg] Minoo Reyes [facility]; [facility] Work Phone: Comment on above: Patient Position: Sitting; Cuff Location : Left Arm; Cuff Size: Standard 07-20-2022 11:11-0400 Body height 154.94 cm Daisha Urbano [facility]; [facility] Work Phone: 07-20-2022 11:11-0400 Body mass index (BMI) [Ratio] 21.59 kg/m2 Daisha Urbano [facility]; [facility] Work Phone: 07-20-2022 11:11-0400 Body surface area Derived from formula 1.49 m2 Daisha Delorisrb [employer] [facility]; [facility] Work Phone: 07-20-2022 11:11-0400 Body temperature 97.3 [degF] Daisha Puentesrb [employer] [facility]; [facility] Work Phone: 07-20-2022 11:11-0400 Body weight 51.82 kg Daisha Puentesrb [employer] [facility]; [facility] Work Phone: 07-20-2022 11:11-0400 Diastolic blood pressure 90 mm[Hg] Daisha Slarb [employer] [facility]; [facility] Work Phone: Comment on above: Patient Position: Sitting; Cuff Location : Left Arm; Cuff Size: Standard 07-20-2022 11:11-0400 Heart rate 78 /min Daisha Slarb [employer] [facility]; [facility] Work Phone: Comment on above: Pattern: Regular 07-20-2022 11:11-0400 Respiratory rate 18 /min Daisha Delorisrb [employer] [facility]; [facility] Work Phone: Comment on above: Pattern: Unlabored 07-20-2022 11:11-0400 SaO2% (BldA) [Mass fraction] 95 % Daisha Slarb [employer] [facility]; [facility] Work Phone: Comment on above: Room air 07-20-2022 11:11-0400 Systolic blood pressure 140 mm[Hg] Daisha Slarb [employer] [facility]; [facility] Work Phone: Comment on above: Patient Position: Sitting; Cuff Location : Left Arm; Cuff Size: Standard 06-23-2022 09:49-0400 Body height 154.94 cm Daisha Slarb [employer] [facility] Work Phone: Comment on above: pt did not report 06-23-2022 09:49-0400 Body mass index (BMI) [Ratio] 21.59 kg/m2 Daisha Slarb [employer] [facility] Work Phone: Comment on above: pt did not report 06-23-2022 09:49-0400 Body surface area Derived from formula 1.49 m2 Daisah Slarb [employer] [facility] [employer] Work Phone: Comment on above: pt did not report 06-23-2022 09:49-0400 Body weight 51.82 kg Daisha Slarb [employer] [facility] Work Phone: Comment on above: pt did not report 03-31-2022 08:31-0400 Body height 154.94 cm [facility] Work Phone: 03-24-2022 10:11-0400 Body height 154.94 cm Jennifer Ousmane DO Work Phone: [facility] Work Phone: 03-24-2022 10:11-0400 Body mass index (BMI) [Ratio] 21.59 kg/m2 Jennifer Ousmane DO Work Phone: [facility]; [facility] Work Phone: 03-24-2022 10:11-0400 Body surface area Derived from formula 1.49 m2 Jennifer Ousmane DO Work Phone: [facility]; [facility] Work Phone: 03-24-2022 10:11-0400 Body temperature 97.3 [degF] Jennifer Ousmane DO Work Phone: [facility]; [facility] Work Phone: Comment on above: Method: Infrared 03-24-2022 10:11-0400 Body weight 51.82 kg Jennifer Ousmane DO Work Phone: [facility] Work Phone: 03-24-2022 10:11-0400 Diastolic blood pressure 76 mm[Hg] Jennifer Ousmane DO Work Phone: [facility]; [facility] Work Phone: Comment on above: Patient Position: Sitting; Cuff Location : Left Arm; Cuff Size: Standard 03-24-2022 10:11-0400 Heart rate 73 /min Jennifer Romeo DO Work Phone: [facility]; [facility] Work Phone: Comment on above: Pattern: Regular 03-24-2022 10:11-0400 Respiratory rate 16 /min Jennifer Romeo DO Work Phone: [facility]; [facility] Work Phone: Comment on above: Pattern: Unlabored 03-24-2022 10:11-0400 SaO2% (BldA) [Mass fraction] 99 % Jennifer Romeo DO Work Phone: [facility]; [facility] Work Phone: Comment on above: Room air 03-24-2022 10:11-0400 Systolic blood pressure 132 mm[Hg] Jennifer Romeo DO Work Phone: [facility]; [facility] Work Phone: Comment on above: Patient Position: Sitting; Cuff Location : Left Arm; Cuff Size: Standard 11-08-2021 11:24-0500 Body height 154.94 cm Daisha Yolie RICHARDSON [facility]; [facility] Work Phone: 11-08-2021 11:24-0500 Body mass index (BMI) [Ratio] 21.4 kg/m2 Daisha Slarb [employer]; [facility] Work Phone: 11-08-2021 11:24-0500 Body surface area Derived from formula 1.48 m2 Daisha Slarb [employer] [facility] Work Phone: 11-08-2021 11:24-0500 Body temperature 96.1 [degF] Daisha Slarb [employer] [facility] [employer] Work Phone: 11-08-2021 11:24-0500 Body weight 51.37 kg Daisha Delorisrb [employer] Work Phone: 11-08-2021 11:24-0500 Diastolic blood pressure 82 mm[Hg] Daisha Slarb [employer] Work Phone: Comment on above: Patient Position: Sitting; Cuff Location : Left Arm; Cuff Size: Standard 11-08-2021 11:24-0500 Heart rate 66 /min Daisha Slarb [employer] [facility] Work Phone: Comment on above: Pattern: Regular 11-08-2021 11:24-0500 Respiratory rate 16 /min Daisha Slarb [employer] [facility] Work Phone: Comment on above: Pattern: Unlabored 11-08-2021 11:24-0500 SaO2% (BldA) [Mass fraction] 99 % Daisha Slarb [employer] [facility] Work Phone: Comment on above: Room air 11-08-2021 11:24-0500 Systolic blood pressure 132 mm[Hg] Daisha Slarb [employer] [facility] Work Phone: Comment on above: Patient Position: Sitting; Cuff Location : Left Arm; Cuff Size: Standard 08-23-2021 08:45-0400 Body height 154.94 cm Minoo Reyes [facility]; [facility] Work Phone: 08-23-2021 08:45-0400 Body mass index (BMI) [Ratio] 21.54 kg/m2 Minoo Reyes [facility] Work Phone: 08-23-2021 08:45-0400 Body surface area Derived from formula 1.49 m2 Minoo Reyes [facility]; [facility] Work Phone: 08-23-2021 08:45-0400 Body temperature 97.2 [degF] Minoo Reyes [facility]; [facility] Work Phone: Comment on above: Method: Infrared 08-23-2021 08:45-0400 Body weight 51.71 kg Minoo Reyes [facility]; [facility] Work Phone: 08-23-2021 08:45-0400 Diastolic blood pressure 90 mm[Hg] Minoo Reyes [facility]; [facility] Work Phone: Comment on above: Patient Position: Sitting; Cuff Location : Left Arm; Cuff Size: Standard 08-23-2021 08:45-0400 Heart rate 55 /min Minoo Reyes [facility]; [facility] Work Phone: Comment on above: Pattern: Regular 08-23-2021 08:45-0400 Respiratory rate 18 /min Minoo Reyes [facility] Comprehens[facility]; [facility] Work Phone: Comment on above: Pattern: Unlabored 08-23-2021 08:45-0400 SaO2% (BldA) [Mass fraction] 99 % Minoo Reyes [facility]; [facility] Work Phone: Comment on above: Room air 08-23-2021 08:45-0400 Systolic blood pressure 162 mm[Hg] Minoo Reyes [facility]; [facility] Work Phone: Comment on above: Patient Position: Sitting; Cuff Location : Left Arm; Cuff Size: Standard 03-09-2021 08:33-0400 BMI (Body Mass Index) 21.73 kg/m2 Krystle Simeon LPN [facility]; [facility] Work Phone: 03-09-2021 08:33-0400 Body Temperature 97.1 [degF] Krystle Simeon LPN [facility]; [facility] Work Phone: Comment on above: Method: Infrared 03-09-2021 08:33-0400 Body weight 52.16 kg Krystle Simeon LPN [facility]; [facility] Work Phone: 03-09-2021 08:33-0400 BP Diastolic 100 mm[Hg] Krystle Simeon LPN [facility]; [facility] Work Phone: Comment on above: Patient Position: Sitting; Cuff Location : Left Arm; Cuff Size: Standard 03-09-2021 08:33-0400 BP Systolic 138 mm[Hg] Krystle Simeon [employer] [facility]; [facility] Work Phone: Comment on above: Patient Position: Sitting; Cuff Location : Left Arm; Cuff Size: Standard 03-09-2021 08:33-0400 BSA (Body Surface Area) 1.49 m2 Krystle Simeon [employer] [facility]; [facility] Work Phone: 03-09-2021 08:33-0400 Height 154.94 cm Krystle Simeon [employer] [facility]; [facility] Work Phone: 03-09-2021 08:33-0400 Pulse (Heart Rate) 76 /min Krystle Simeon [employer] [facility]; [facility] Work Phone: Comment on above: Pattern: Regular 03-09-2021 08:33-0400 Pulse Oximetry 98 % Jennifer Romeo [facility]; [facility] Work Phone: Comment on above: Room air 03-09-2021 08:33-0400 Respiratory Rate 16 /min Krystle Simeon [employer] [facility]; [facility] Work Phone: Comment on above: Pattern: Unlabored 03-09-2021 08:33-0400 SaO2% (BldA) [Mass fraction] 98 % Krystle Simeon [employer] [facility]; [facility] Work Phone: Comment on above: Room air 02-05-2021 10:28-0500 BMI (Body Mass Index) 21.73 kg/m2 Minoo Reyes [facility]; [facility] Work Phone: 02-05-2021 10:28-0500 Body Temperature 97.2 [degF] Minoo Reyes [facility] Com[facility] e [facility]; [facility] Work Phone: Comment on above: Method: Infrared 02-05-2021 10:28-0500 Body weight 52.16 kg Minoo Reyes [facility]; [facility] Work Phone: 02-05-2021 10:28-0500 BP Diastolic 98 mm[Hg] Minoo Reyes CMA [facility]; [facility] Work Phone: Comment on above: Patient Position: Sitting; Cuff Location : Left Arm; Cuff Size: Standard 02-05-2021 10:28-0500 BP Systolic 142 mm[Hg] Minoo Reyes CMA [facility]; [facility] Work Phone: Comment on above: Patient Position: Sitting; Cuff Location : Left Arm; Cuff Size: Standard 02-05-2021 10:28-0500 BSA (Body Surface Area) 1.49 m2 Minoo Reyes CMA [facility]; [facility] Work Phone: 02-05-2021 10:28-0500 Height 154.94 cm Minoo Reyes CMA [facility]; [facility] Work Phone: 02-05-2021 10:28-0500 Pulse (Heart Rate) 69 /min Minoo Reyes [employer] DESIGN ENGINE[employer] [facility]; [facility] Work Phone: Comment on above: Pattern: Regular 02-05-2021 10:28-0500 Pulse Oximetry 98 % Jennifer Romeo [facility]; [facility] Work Phone: Comment on above: Room air 02-05-2021 10:28-0500 Respiratory Rate 16 /min Minoo Reyes CMA [facility]; [facility] Work Phone: Comment on above: Pattern: Unlabored 02-05-2021 10:28-0500 SaO2% (BldA) [Mass fraction] 98 % Minoo Reyes [facility]; [facility] Work Phone: Comment on above: Room air 01-22-2021 09:45-0500 BMI (Body Mass Index) 21.73 kg/m2 Krystle Simeon LPN [facility]; [facility] Work Phone: 01-22-2021 09:45-0500 Body Temperature 97.6 [degF] Krystle Simeon LPN [facility]; [facility] Work Phone: 01-22-2021 09:45-0500 Body weight 52.16 kg Krystle Simeon [facility]; [facility] Work Phone: 01-22-2021 09:45-0500 BSA (Body Surface Area) 1.49 m2 Krystle Simeon [facility]; [facility] Work Phone: 01-22-2021 09:45-0500 Height 154.94 [facility]; [facility] Work Phone: 08-06-2020 11:36-0400 BMI (Body Mass Index) 22.3 kg/m2 Minoo Reyes [facility] Work Phone: 08-06-2020 11:36-0400 Body Temperature 97.1 [degF] Minoo Reyes [employer] DESIGN ENGINEER [facility] Work Phone: Comment on above: Method: Infrared 08-06-2020 11:36-0400 Body weight 53.52 kg Minoo Reyes [facility] Work Phone: 08-06-2020 11:36-0400 BP Diastolic 90 mm[Hg] Minoo Sbius [facility] Work Phone: Comment on above: Patient Position: Sitting; Cuff Location : Left Arm; Cuff Size: Standard 08-06-2020 11:36-0400 BP Systolic 148 mm[Hg] Minoo Reyes [facility] Work Phone: Comment on above: Patient Position: Sitting; Cuff Location : Left Arm; Cuff Size: Standard 08-06-2020 11:36-0400 BSA (Body Surface Area) 1.51 m2 Minoo Reyes [facility] Work Phone: 08-06-2020 11:36-0400 Height 154.94 cm Minoo Reyes [facility] Work Phone: 08-06-2020 11:36-0400 Pulse (Heart Rate) 70 /min Minoo Reyes [employer] DESIGN ENGINEER [facility] Work Phone: Comment on above: Pattern: Regular 08-06-2020 11:36-0400 Pulse Oximetry 98 % Jennifer Romeo [facility] Work Phone: Comment on above: Room air 08-06-2020 11:36-0400 Respiratory Rate 18 /min Minoo Reyes CMA [facility] Work Phone: Comment on above: Pattern: Unlabored 08-06-2020 11:36-0400 SaO2% (BldA) [Mass fraction] 98 % Minoo Reyes [employer] DESIGN ENGINEER [facility] Work Phone: Comment on above: Room air 04-27-2020 12:10-0400 BMI (Body Mass Index) 22.11 kg/m2 Jennifer Ousmane DO Work Phone: [facility] Work Phone: 04-27-2020 12:10-0400 Body weight 53.07 kg Jennifer Ousmane DO Work Phone: [facility] Work Phone: 04-27-2020 12:10-0400 BSA (Body Surface Area) 1.5 m2 Jennifer Ousmane DO Work Phone: [facility] Work Phone: 04-27-2020 12:10-0400 Height 154.94 cm Jennifer Ousmane DO Work Phone: [facility] Work Phone: 04-27-2020 12:09-0400 Body Temperature 98.3 [degF] Jennifer Ousmane DO Work Phone: [facility] Work Phone: Comment on above: Method: Oral no vital signs since virtual visit and covid Encounters Encounter Date Encounter Type Care Provider Facility Start: 05-21-2025 ambulatory Jennifer Ruizon Facilit y:[facility] Start: 10-29-2024 End: 10-29-2024 ambulatory Bandar Whitaker Facility:[id number] Start: 10-10-2024 End: 10-10-2024 ambulatory Jennifer Ruizon Facility:[facility] Start: 08-19-2024 End: 08-19-2024 ambulatory Ne Robledo Facility:[facility] Start: 04-02-2024 End: 04-02-[address] Jennifer Romeo Work Phone: [facility] Work Phone: Start: 04-02-2024 End: 04-02-[address] Jennifer Romeo Work Phone: [facility]-Outpatient Bone Densitometry Work Phone: Start: 02-21-2024 Non-patient / Non-visit Dr. Jennifer Romeo Work Phone: [facility] Work Phone: Start: 02-21-2024 End: 02-22-2024 Evaluation and management of inpatient Dr. Jennifer Romeo Work Phone: [facility]-Medical Surgical 3 Work Phone: Start: 02-21-2024 End: 02-22-[address] Jennifer Romeo Work Phone: [facility] Work Phone: Start: 02-01-2024 End: 02-01-2024 Non-patient / Non-visit Dr. Jennifer Romeo Work Phone: [facility] Work Phone: Start: 02-01-2024 End: 02-01-2024 ambulatory [facility] Work Phone: Start: 02-01-2024 End: 02-01-2024 Patient encounter procedure [facility]-Cat Scan, [facility] Work Phone: Start: 11-29-2023 End: 11-29-2023 ambulatory [facility] Work Phone: Start: 11-29-2023 End: 11-29-2023 Patient encounter procedure [facility]-Cat Scan, [facility] Work Phone: Start: 10-09-2023 End: 10-09-2023 ambulatory [facility] Work Phone: Start: 10-09-2023 End: 10-09-2023 Patient encounter procedure [facility]-Outpatient Bone Densitometry Work Phone: Start: 09-14-2023 End: 09-14-2023 Patient encounter procedure Jennifer Ousmane DO Work Phone: [facility] Work Phone: Start: 09-14-2023 End: 09-14-2023 Patient encounter status Jennifer Ousmane DO Work Phone: [facility]; [facility] Work Phone: Start: 09-14-2023 Review Jennifer Fearo n DO Work Phone: [facility] Start: 03-13-2023 ambulatory Jennifer Ousmane DO Comp [facility] Start: 03-13-2023 End: 03-13-2023 Office outpatient visit 25 minutes Jennifer Ousmane DO Work Phone: [facility] Start: 03-13-2023 Review Jennifer Fearo n DO Work Phone: [facility] Start: 02-06-2023 End: 02-06-2023 Phone Encounter Jennifer Ousmane DO Work Phone: [facility] Start: 01-24-2023 End: 01-24-2023 Annotation/Addendum Jennifer Ousmane DO Work Phone: [facility] Start: 01-02-2023 End: 01-02-2023 Annotation/Addendum Jennifer Ousmane DO Work Phone: [facility] Start: 12-22-2022 End: 12-22-2022 Office outpatient visit 15 minutes Jennifer Ousmane DO Work Phone: [facility] Start: 12-22-2022 Review Jennifer Fearo n DO Work Phone: [facility] Start: 12-09-2022 End: 12-09-2022 Annotation/Addendum Jennifer Ousmane DO Work Phone: [facility] Start: 12-01-2022 Non-patient / Non-visit Dr. Jennifer Romeo Work Phone: [facility] Start: 12-01-2022 End: 12-01-[address] Jennifer Romeo Work Phone: [facility] Work Phone: Start: 12-01-2022 End: 12-01-[address] Jennifer Romeo Work Phone: [facility]-Cardiovascular Services Start: 12-01-2022 Review Jennifer godoy DO Work Phone: [facility] Start: 12-01-2022 End: 12-03-2022 Office outpatient visit 10 minutes Jennifer Romeo DO Work Phone: [facility] Start: 11-17-2022 End: 11-17-2022 Office outpatient visit 10 minutes Jennifer Romeo DO Work Phone: [facility] Start: 10-03-2022 End: 10-03-2022 ambulatory [facility] Work Phone: Start: 10-03-2022 End: 10-03-2022 Patient encounter procedure [facility]-Outpatient Breast Imaging Start: 09-05-2022 End: 09-05-2022 Patient encounter procedure Minoo Reyes [facility] Work Phone: Start: 09-05-2022 End: 09-05-2022 Periodic preventive med est patient 65yrs& older Jennifer Romeo DO Work Phone: [facility] Start: 07-20-2022 End: 07-20-2022 Office outpatient visit 10 minutes Jennifer Ousmane DO Work Phone: [facility] Start: 06-23-2022 End: 06-23-2022 Office outpatient visit 10 minutes Jennifer Ruizon DO Work Phone: [facility] Start: 03-31-2022 End: 03-31-2022 Patient encounter procedure [facility]-Outpatient Bone Densitometry Start: 03-24-2022 End: 03-25-2022 Office outpatient visit 15 minutes Jennifer Romeo DO Work Phone: [facility] Start: 03-16-2022 End: 03-16-2022 Phone Encounter Jennifer Romeo DO Work Phone: [facility] Start: 12-03-2021 End: 12-03-2021 Phone Encounter Jennifer Romeo DO Work Phone: [facility] Start: 11-08-2021 End: 11-08-2021 Office outpatient visit 15 minutes Jennifer Romeo DO Work Phone: [facility] Start: 08-23-2021 End: 08-23-2021 Patient encounter procedure Jennifer Romeo DO Work Phone: [facility]; [facility] Work Phone: Start: 08-23-2021 End: 08-23-2021 Periodic preventive med est patient 65yrs& older Jennifer Romeo DO Work Phone: [facility] Start: 03-09-2021 End: 03-09-2021 Office outpatient visit 10 minutes Jennifer Ousmane [facility] Start: 02-05-2021 End: 02-05-2021 Office outpatient visit 15 minutes Jennifer Ruizon [facility] Start: 02-05-2021 Review Jennifer Romeo Compreh ens[facility] Start: 01-22-2021 End: 01-22-2021 Office outpatient visit 15 minutes Jennifer Ousmane [facility] Start: 11-11-2020 End: 11-11-2020 Phone Encounter Jennifer Romeo [facility] Start: 09-08-2020 End: 09-08-2020 Office outpatient visit 5 minutes Jennifer Ousmane [facility] Start: 08-06-2020 End: 08-06-2020 Patient encounter procedure Jennifer Ruizon DO Work Phone: [facility] Work Phone: Start: 08-06-2020 End: 08-06-2020 Periodic preventive med est patient 65yrs& older Jenniferkandi Romeo [facility] Start: 08-06-2020 Review Jennifer Romeo Compreh [facility] Start: 06-17-2020 End: 06-17-2020 Lab Order Jennifer Romeo [facility] Start: 04-27-2020 End: 04-27-2020 Office outpatient new 30 minutes Jennifer Romeo [facility] Patient encounter procedure Riley Lopez [facility] Work Phone: Patient encounter procedure Daisha Slarb [facility]; [facility] Work Phone: Patient encounter procedure Minoo Reyes [facility]; [facility] Work Phone: Patient encounter procedure Daisha Slarb [facility]; [facility] Work Phone: Patient encounter procedure Daisha Slarb [facility]; [facility] Work Phone: Patient encounter procedure Sergjael Vazquez [facility]; [facility] Work Phone: Patient encounter procedure Sergjael Vazquez [facility]; [facility] Work Phone: [facility]; [facility] Work Phone: [facility]; [facility] Work Phone: Procedures Date Procedure Procedure Detail Performing Clinician Start: 04-02-2024 Dual energy X-ray absorptiometry Dr. Jennifer Romeo Work Phone: Start: 02-21-2024 Radiologic examination of knee Dr. Jennifer Romeo Work Phone: Start: 02-21-2024 Total Knee Replacement Robotic Arm Faustino (Right) Dr. Jennifer Romeo Work Phone: Start: 02-01-2024 Nasal Screen MRSA/MSSA Dr. Jennifer Romeo Work Phone: Start: 02-01-2024 MRI of lower extremity Start: 11-29-2023 CT of thorax with contrast Start: 10-09-2023 Screening mammography Start: 12-16-2022 End: 12-16-2022 Extremity Lower without Contra Procedure Note: See Note; NOTES: [facility] Imaging Services [address] [place] [address] Extremity Lower without Contra MR#: [id number] Acct: [id number] Name: NAVEEN FUENTES Rep #: [id number] : [id number] F [id number] From: Juan Miguel Arenas MD PCP: Dr. Jennifer Romeo DO Status: REG CLI Study: Extremity Lower without Contra Date of Exam: 0 12/16/22 Exam# [id number] Ordering Dr: Jennifer Romeo DO EXAM: CT LEFT LOWER EXTREMITY WITHOUT INTRAVENOUS CONTRAST, TIBIA AND FIBULA CLINICAL INDICATION: mass of lower extremity. soft tissue swelling mid tibia area TECHNIQUE: Helically acquired images were obtained of the left tibia and fibula without intravenous contrast. 2-D reformats were performed by the technologist. This CT exam was performed using one or more of the following dose reduction techniques: automated exposure control, adjustment of the mA and/or kV according to patient size, and/or use of iterative reconstruction technique. This report was created using Symtav[employer] report generation technology. COMPARISON: None. FINDINGS: BONES/JOINTS: No acute fracture or subluxation. Small left knee joint effusion. 4.9 x 1.9 cm Roque cyst. Arthritic narrowing and bony spurring of the knee joint. SOFT TISSUES: No soft tissue swelling or gas. No radiopaque foreign body. No soft tissue mass or hematoma. 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 Electronically Signed: Juan Miguel Arenas MD at 16:37 EST , CC: Dr. Jennifer Romeo DO Director Of Maternity Services: Signed Jennifer Romeo DO Work Phone: Start: 12-01-2022 End: 12-01-2022 Venous Duplex US, Unilateral Procedure Note: See Note; NOTES: [facility] Cardiovascular Services [address] [place] [address] Venous Duplex US, Unilateral 12/01/22 1439 MR#: [id number] Acct: [id number] Name: NAVEEN FUENTES Rep #: [id number] : 1950 72 From: Christiano Odonnell MD Attending Dr: Dr. Jennifer Romeo, DO Status: R EG CLI Ordering Dr: Jennifer Romeo DO Date: 12/01/22 Location: [facility] Sex: F C Admitted: Reason For Study: LEG PAIN AND SWELLING RIGHT LEFT CFV is compressible, spontaneous, phasic, GSV is normal. competent and demonstrates normal CFV is compressible, spontaneous, phasic, augmentation. competent, and demonstrates normal Procedure augmentation. This is a venous duplex using B-mode, color FV is compressible, spontaneous, phasic, flow and spectral Doppler. competent and demonstrates normal Exam performed in department. augmentation. The exam was diagnostic. POP V is compressible, spontaneous, phasic, A preliminary report was called and/or faxed competent and demonstrates normal to Dr. Romeo. augmentation. T/P Trunk is compressible. PTV is compressible. LT PerV is compressible. Possible Epidermoid Cyst measuring approximately 2.35cm x 1.11cm noted Lt Mid Calf. VL/Venous Duplex US, Unilateral Interpretation Summary There is no evidence of left lower extremity deep vein thrombosis. Left great saphenous vein appears patent and compressible segmentally. Normal flow patterns right common femoral vein Left mid calf subcutaneous 2.35 x 1.11 cm structure of undetermined etiology. Clinical correlation would be appropriate. ___ Ordering Physician: Jennifer Romeo Referring Physician: Jennifer Romeo Performed By: Kelechi Burk, T 12/01/22 1600 Date Christiano Odonnell MD CC: Dr. Jennifer Romeo, Date Dictated: 12/01/22 1439 Date Transcribed: 12/01/22 1600 Director Of Maternity Services: Signed Jennifer Romeo DO Work Phone: Start: 10-03-2022 Screening mammography Start: 10-03-2022 End: 10-03-2022 SCRN MAMM (CAD)W/JOEY BILAT Procedure Note: See Note; NOTES: [facility] Imaging Services [address] [place] [address] SCRN MAMM (CAD)W/JOEY BILAT MR#: [id number] Acct: [id number] Name: NAVEEN FUENTES Rep #: [id number] : 1950 F 72 From: Mani lomas MD PCP: Dr. Jennifer Romeo DO Status: REG CLI Study: SCRN MAMM (CAD)W/JOEY BILAT Date of Exam: 06/17 Exam# [id number] Ordering Dr: Jennifer Romeo DO MAMMOGRAPHY - BILATERAL SCREENING REASON FOR EXAM: Female, 72 years old. Routine annual screening examination. PERTINENT HISTORY: Non-contributory. TECHNIQUE: Digital bilateral breast joey (3D mammographic acquisition) in the CC and MLO projections. 2-D mediolateral oblique (MLO) and craniocaudad (CC) views of both breasts were obtained. CAD: Full Field Digital Mammography with Computer Added Detection was performed. COMPARISON: Comparison is made with prior study dated 09/21/2021 and 09/08/2020. FINDINGS: Breast Composition: The breasts are extremely dense, which lowers the sensitivity of mammography. There are no dominant masses or suspicious calcifications. No other significant abnormalities are identified. There has been no significant change since the prior study. BI/SCRN MAMM (CAD)W/JOEY BILAT IMPRESSION: Stable bilateral screening mammogram. Yearly follow-up mammogram recommended. (A) ASSESSMENT CATEGORY: BIRADS Category 1: Negative. A letter regarding these results will be sent to the patient by the facility within 30 days. Approximately 10% of breast cancers are not detected by mammography. A normal mammogram should not delay biopsy of a clinically suspicious abnormality. [id number] Electronically Signed: Mani Ignacio MD at 10:24 EST , CC: Dr. Jennifer Romeo DO Director Of Maternity Services: Signed Jennifer Romeo DO Work Phone: Start: 03-31-2022 End: 03-31-2022 Dexa Bone Density Study Comments: See Note; NOTES: [facility] Imaging Services [address] [place] [address] Dexa Bone Density Study MR#: [id number] Acct: [id number] Name: NAVEEN FUENTES Rep #: [id number] : 1950 F 71 From: Mani lomas MD PCP: Dr. Jennifer Romeo DO [facility] Study: Dexa Bone Density Study Date of Exam: 03/31/22 Exam# [id number] Ordering Dr: Jennifer Romeo DO STUDY: DUAL ENERGY X-RAY ABSORPTIOMETRY / DXA REASON FOR EXAM: Female, 71 years old. [id number]. The patient is postmenopausal. TECHNIQUE: Bone Mineral Density (BMD) measurements of lumbar spine and bilateral hips were obtained. COMPARISON: Comparison is made with prior study of 02/04/2020. FINDINGS: Lumbar Spine (L1-L4): g/cm2 (0.803) / T-score (-2.2) / Z-score (0.0) Findings are suggestive of osteopenia with a high fracture risk. Left Femur Total: g/cm2 (0.714) / T-score (-1.9) / Z-score (-0.3) Left Femoral Neck: g/cm2 (0.645) / T-score (-1.8) / Z-score (0.1) Right Femur Total: g/cm2 (0.763) / T-score (-1.5) / Z-score (0.1) Right Femoral Neck: g/cm2 (0.632) / T-score (-2.0) / Z-score (-0.1) The T-Scores on the most recent prior examination were: Lumbar Spine (L1-L4): There has been worsening of bone density since the previous examination. Left Femur Total: which represents a worsening of 3.4%. Right Femur Total: which represents an improvement of 2.9%. BD/Dexa Bone Density Study IMPRESSION: The patient is considered osteopenic as outlined below according to World Altaf Organization (WHO) criteria with a high fracture risk. There has been worsening of bone density since the previous examination. Reference Information: The T-score is the number of standard deviations above or below the standard which is normal for young adults at their peak bone mineral density. The World Health Organization (WHO) interprets the T-scores as follows: Above -1 Normal bone density Between -1 and -2.5 Osteopenia Equal to / or below -2.5 Osteoporosis As a practical clinical guideline, osteopenia may be graded as follows: Mild -1 through -1.5 Moderate -1.6 through -2.0 Severe -2.1 through -2.4 The Z-score is the number of standard deviations above or below age-matched controls. A Z-score of less than -1.5 would be considered abnormal. References: 1. NIH Osteoporosis and Related Bone Diseases www osteo.org 2. International Society for Clinical Densitometry www iscd.org 3. National Osteoporosis Foundation www nof.org Electronically Signed: Mani Ignacio MD at 11:04 EDT , CC: Dr. Jennifer Romeo DO Director Of Maternity Services: Signed Jennifer Romeo DO Work Phone: Start: 03-31-2022 Dual energy X-ray absorptiometry Start: 09-21-2021 End: 09-22-2021 SCRN MAMM (CAD)W/JOEY BILAT Comments: See Note; NOTES: [facility] Imaging Services [address] [place] [address] SCRN MAMM (CAD)W/JOEY BILAT MR#: [id number] Acct: [id number] Name: NAVEEN FUENTES Rep #: [id number] : 1950 F 71 From: Mani lomas MD PCP: Dr. Jennifer Romeo DO Status: REG CLI Study: SCRN MAMM (CAD)W/JOEY BILAT Date of Exam: 08/28 05/17 Exam# [id number] Ordering Dr: Jenniefr Romeo DO MAMMOGRAPHY - BILATERAL SCREENING REASON FOR EXAM: Female, 71 years old. Routine annual screening examination. PERTINENT HISTORY: Non-contributory. TECHNIQUE: Digital bilateral breast joey (3D mammographic acquisition) in the CC and MLO projections. 2-D mediolateral oblique (MLO) and craniocaudad (CC) views of both breasts were obtained. CAD: Full Field Digital Mammography with Computer Added Detection was performed. COMPARISON: Comparison is made with prior study 09/08/2020. FINDINGS: Breast Composition: The breasts are extremely dense, which lowers the sensitivity of mammography. There are no dominant masses or suspicious calcifications. No other significant abnormalities are identified. There has been no significant change since the prior study. BI/SCRN MAMM (CAD)W/JOEY BILAT IMPRESSION: Stable bilateral screening mammogram. Yearly follow-up mammogram recommended. (A) ASSESSMENT CATEGORY: BIRADS Category 1: Negative. A letter regarding these results will be sent to the patient by the facility within 30 days. Approximately 10% of breast cancers are not detected by mammography. A normal mammogram should not delay biopsy of a clinically suspicious abnormality. [id number] Electronically Signed: Mani Ignacio MD at 11:04 EDT , Service support , CC: Dr. Jennifer Romeo DO Director Of Maternity Services: Signed Jennifer Romeo DO Work Phone: Start: 04-29-2021 End: 04-29-2021 Knee 3 Views Comments: See Note; NOTES: [facility] Imaging Services [address] [place] [address] Knee 3 Views MR#: [id number] Acct: [id number] Name: NAVEEN FUENTES Rep #: [id number] : 1950 F 70 From: Mani lomas MD PCP: Dr. Jennifer Romeo DO Status: REG ER Study: Knee 3 Views Date of Exam: 04/29/21 Exam# [id number] Ordering Dr: London Carrera DO STUDY: X-RAY - RIGHT KNEE REASON FOR EXAM: Female, 70 years old. Injury TECHNIQUE: 3 view(s) of the knee. COMPARISON: None. FINDINGS: Normal visualized distal femur. Normal visualized proximal tibia and fibula. Normal proximal tibiofibular articulation. There is mild degenerative arthrosis of the medial femorotibial compartment. There is mild degenerative arthrosis of the lateral femorotibial compartment. Normal patellofemoral articulation. The soft tissue structures are unremarkable. RAD/Knee 3 Views IMPRESSION: Degenerative arthrosis. Electronically Signed: Mani Ignacio MD at 12:09 EDT , Service support , CC: Dr. London Carrera DO; Dr. Jennifer Romeo DO Director Of Maternity Services: Signed Jennifer Romeo DO Work Phone: Start: 04-29-2021 End: 04-29-2021 Emergency Department Summary Comments: See Note; NOTES: [facility] Medical Records Department [address] [place] [address] Emergency Department Summary 04/29/21 MR#: [id number] Acct: [id number] Name: NAVEEN FUENTES Rep #: [id number] : 1950 70 From: London Carrera DO PCP: Dr. Jennifer Romeo DO Status:DEP ER Location: ED HPI History of Present Illness Chief Complaint: Lower Extremity Injury Informant: patient Narrative Narrative: 70-year-old female states she did a 15 mile bike ride recently and her right knee was generally sore. Today she was sitting on her barstool with her leg underneath of her when she went to straighten it had significant pain. She states now is very painful for her to do almost any type of motion. She states she can bear weight. She applied knee brace and iced it. She is seen [facility] in the past. [facility] Medical History (Updated 04/29/21 @ 11:[address] London Carrera DO) Arthritis Hypertension Home Medications L.acidoph, paracedei,B. lactis 1 ea PO DAILY 11/13/17 [History Last Taken Unknown] antiarthritic combination no.2 [Glucosamine-Chondroitin] 900 mg PO DAILY 11/13/17 [History Last Taken Unknown] biotin 1 mg PO DAILY 11/13/17 [History Last Taken Unknown] cholecalciferol (vitamin D3) [Vitamin D3] 1,000 unit PO DAILY 11/13/17 [History Last Taken Unknown] fluticasone propionate 2 spray NASAL DAILY 11/13/17 [History Last Taken Unknown] omega-3 fatty acids 1,000 mg PO DAILY 11/13/17 [History Last Taken Unknown] Allergy/AdvReac Type Severity Reaction Status Date / Time naproxen Allergy Unknown Verified 06/23/17 11:07 Penicillins Allergy Rash Verified 06/23/17 11:07 azithromycin AdvReac Nausea/Vom/ Verified 06/23/17 11:07 Diarrhea Surgical History (Updated 04/29/21 @ 11:[address] London Carrera DO) H/O tubal ligation History of parathyroid surgery Social History (Updated 04/29/21 @ 11:[address] London Carrera DO) Smoking Status: Never smoker substance use type: does not use ROS ROS ED Constitutional Constitutional ED: Denies chills or weight loss Eyes Eyes: Denies change in vision or diplopia ENT ENT ED: Denies ear pain, rhinorrhea or sore throat Cardiovascular Cardiovascular: Denies chest pain, orthopnea, palpitations or racing heartbeat Respiratory/Chest Respiratory/Chest: Denies cough, dyspnea or orthopnea Gastrointestinal Gastrointestinal: Denies abdominal pain, diarrhea, nausea or vomiting Genitourinary Genitourinary ED: Denies dysuria, hematuria or urinary frequency Musculoskeletal Musculoskeletal: Reports other Details: See history of present illness ; Denies arthralgias or myalgias Integumentary Denies abscess or rash Neurologic Neurologic: Denies headache(s) or weakness Psychiatric Psychiatric: Denies anxiety, depression, suicidal ideation or suicidal thoughts Endocrine Endocrinology: Denies polydipsia, polyphagia or polyuria Allergic/Immunologic Allergic/Immunologic ED: Denies mouth swelling, tongue swelling or urticaria EXAM Physical Exam Const Vital Signs: 04/29/21 11:25 Temperature 97.6 F L Temperature Source Temporal Pulse Rate 63 Respiratory Rate 15 Blood Pressure 194/87 H Blood Pressure Mean 122 Pulse Ox 100 Oxygen Delivery Method Room Air Positive well nourished and well developed General Appearance ED: well developed HEENT Reports normocephalic, head/scalp atraumatic and moist mucous membranes Eyes PERRL and EOMs intact bilaterally Neck no lymphadenopathy, supple and no JVD Resp normal respiratory effort and clear to auscultation bilaterally Cardio regular rate, regular rhythm and no murmurs GI normal to inspection, nondistended, normoactive bowel sounds and non-tender Palpation: soft Back/Spine no CVA tenderness and normal ROM Extremity Extremity Narrative: Ligaments appear stable. There is no effusion or significant swelling seen. Patient has point tenderness just medial to the inferior aspect patella along the tibial plateau. General Extremety ED: Negative for edema General Extremity: Negative for edema Neuro oriented x3 and CN's II-XII intact bilaterally Sensorium / Orientation: alert Motor Exam: strength 5/5 throughout Psych mental status grossly normal Mood Affect: Negative for depressed or tearful Skin no rashes or lesions noted and no wounds MDM MDM MDM Narrative Medical decision making narrative: My impression of the plain films of the knee is no acute fracture but degenerative changes noted. Patient was encouraged to wrap the knee and limit full range of motion and ice. Would recommend some anti-inflammatories. If not improving would recommend she follow-up with [facility]. Radiography Diagnostic Testing: Radiology Impression Knee X-Ray 04/29/21 11:45 IMPRESSION: Degenerative arthrosis. Electronically Signed: Mani Ignacio MD at 12:09 EDT , Service support , Discharge Plan Triage Chief Complaint: Lower Extremity Injury ED Provider: London Carrera Dx/Rx/DC Orders Clinical Impression: Acute pain of right knee Instructions: ED Meniscal Injury Knee Poss Prescriptions: No Action omega-3 fatty acids 1,000 MG capsule 1,000 mg PO DAILY RF: 0 fluticasone propionate 1 SPRAY Nasal.Sry 2 spray NASAL DAILY RF: 0 cholecalciferol (vitamin D3) [Vitamin D3] 1,000 UNIT capsule 1,000 unit PO DAILY RF: 0 antiarthritic combination no.2 [glucosamine-chondroitin] 900 MG tablet 900 mg PO DAILY RF: 0 biotin 1 MG capsule 1 mg PO DAILY RF: 0 L.acidoph, paracasei,B. lactis 1 EACH capsule 1 ea PO DAILY RF: 0 Primary Care Provider: Jennifer Romeo Referrals: Jennifer Romeo DO [Primary Care Provider] - As Needed Joel Modi MD [STAFF PHYSICIAN] - 10-14 Days if not better Activity Restrictions/Additional Instructions: Continue to wrap the knee. Ice and anti-inflammatories (ibuprofen or naproxen) Disposition Disposition: Home, self care What to do if you have Problems For any increased pain, shortness of breath, bleeding, nausea or vomiting, chest pain, or any unexpected problems, contact your Primary Care Provider. Call [facility] ([phone]) or report to the closest Emergency Room. Call 911 if necessary. 04/29/21 1634 <Electronically signed by London Carrera DO> Cosigner Signature (if applicable): CC: Dr. Jennifer Romeo DO Signed Jennifer Romeo DO Work Phone: Start: 09-08-2020 End: 09-08-2020 SCREEN MAMM (CAD) W/JOEY BILAT Comments: See Note; NOTES: [facility] Imaging Services [address] [place] [address] SCREEN MAMM (CAD) W/JOEY BILAT MR#: [id number] Acct: [id number] Name: NAVEEN FUENTES Rep #: [id number] : 1950 F 70 From: Mani lomas MD PCP: Dr. Jennifer Romeo DO Status: REG CLI Study: SCREEN MAMM (CAD) W/JOEY BILAT Date of Exam: Exam# [id number] Ordering Dr: Jennifer Romeo DO MAMMOGRAPHY - BILATERAL SCREENING REASON FOR EXAM: Female, 70 years old. Routine annual screening examination. PERTINENT HISTORY: Non-contributory. TECHNIQUE: Digital bilateral breast joey (3D mammographic acquisition) in the CC and MLO projections. 2-D mediolateral oblique (MLO) and craniocaudad (CC) views of both breasts were obtained. CAD: Full Field Digital Mammography with Computer Added Detection was performed. COMPARISON: Comparison is made with prior outside examination is 08/22/2019. FINDINGS: Breast Composition: The breasts are extremely dense, which lowers the sensitivity of mammography. There are no dominant masses or suspicious calcifications. No other significant abnormalities are identified. There has been no significant change since the prior study. BI/SCREEN MAMM (CAD) W/JOEY BILAT IMPRESSION: Stable bilateral screening mammogram. Yearly follow-up mammogram recommended. (A) ASSESSMENT CATEGORY: BIRADS Category 1: Negative. A letter regarding these results will be sent to the patient by the facility within 30 days. Approximately 10% of breast cancers are not detected by mammography. A normal mammogram should not delay biopsy of a clinically suspicious abnormality. [id number] Electronically Signed: Mani Ignacio, at 14:22 EDT , Service support , CC: Dr. Jennifer Romeo, Director Of Maternity Services: Signed Jennifer Romeo Work Phone: Parathyroidectomy [facility]inoo Gra vius Comment on above: [facility] Comment on above: [facility]athyroide[facility] Daisha Sla rb [employer]STRY Comment on above: [facility]athyroide[facility] Minoo Gra vius [facility] Comment on above: [facility]athyroide[facility] Daisha Sla rb COOK 3 PASTRY Comment on above: [facility]athyroide[facility] Daisha Sla rb COOK 3 PASTRY Comment on above: [facility]athyroidectomy Minoo Gra vius [facility] Comment on above: [facility]athyroide[facility] Kayela Rad zheng [facility] Comment on above: [facility]athyroide[facility] Kayela Rad zheng [facility] Comment on above: [facility]athy[facility] Kayela Rad zheng [employer] Comment on above: took 1 out april [address] [facility] Parathyroidectomy Sergrobsonnatalia Jaleel zheng [employer] Comment on above: took 1 out april [address] [facility] Plan of Treatment Date Care Activity Detail Author Start: 02-22-2024 Patient discharge [facility] Start: 02-21-2024 Anesth open/surg art hrs total knee arthroplasty ANESTH KNEE ARTHROPLASTY [facility] Start: 02-21-2024 Arthrp kne condyle&p latu medial&lat compartments TOTAL KNEE ARTHROPLASTY [facility] Start: 02-21-2024 Application of intermittent pneumatic compression device [facility] Start: 02-21-2024 End: 02-21-2024 Following clinical pathway protocol [facility] Start: 02-21-2024 Provision of overbed trapeze [facility] Start: 02-21-2024 Recommendation to continue with treatment [facility] Start: 02-21-2024 Ambulation therapy management [facility] Start: 02-21-2024 Application of device W [facility] Start: 02-21-2024 Application of elast ic bandage [facility] Start: 02-21-2024 Assessment of risk o f venous thromboembolism [facility] Start: 02-21-2024 Catheterization of vein [facility] Start: 02-21-2024 Exercises [facility] Start: 02-21-2024 Following clinical pathway protocol [facility] Start: 02-21-2024 Incentive spirometry [facility] Start: 02-21-2024 Introduction of urin kelly catheter [facility] Start: 02-21-2024 Measuring intake and output [facility] Start: 02-21-2024 Neurovascular assessment [facility] Start: 02-21-2024 Patient education [facility] Start: 02-21-2024 Procedure discontinued [facility] Start: 02-21-2024 Provision of activit y privileges [facility] Start: 02-21-2024 Referral to occupati onal therapist [facility] Start: 02-21-2024 Referral to service [facility] Start: 02-21-2024 Vital signs measurements [facility] Start: 02-21-2024 Wound care [facility] Start: 02-21-2024 [facility] Start: 02-21-2024 Admission procedure [facility] Start: 02-21-2024 Consultation [facility] Start: 09-14-2023 Procedure Education Eprescribe d prescriptions (G8553) [facility] Work Phone: Start: 09-14-2023 Provider Instruction s for Treatment [facility] Work Phone: Start: 09-14-2023 Assay of thyroid stimulating hormone tsh TSH (66102) [facility] Work Phone: Start: 09-14-2023 Urnls dip stick/tabl et reagent auto microscopy URINALYSIS, W/ MICRO (30633) [facility]; [facility] Work Phone: Start: 09-14-2023 Urine albumin quantitative MICROALBUMIN: CREATININE RATIO (93112) AND (40191) [facility]; [facility] Work Phone: Start: 09-14-2023 Comprehensive metabo lic panel METABOLIC PANEL, COMPREHENSIVE (22570) [facility]; [facility] Work Phone: Start: 09-14-2023 Blood count complete auto&auto difrntl wbc CBC W/AUTO DIFF WBC (81251) [facility]; [facility] Work Phone: Start: 09-14-2023 Lipid panel LIPID PANEL (34129) [facility]; [facility] Work Phone: Start: 09-14-2023 25 hydroxy includes fractions if performed CALCIFIDIOL (29243) VIT D 25 [facility]; [facility] Work Phone: Start: 03-13-2023 Procedure Education Eprescribe d prescriptions (G8553) [facility]; [facility] Work Phone: Start: 03-13-2023 Provider Instruction s for Treatment [facility]; [facility] Work Phone: Start: 12-22-2022 Procedure Education Eprescribe d prescriptions (G8553) [facility]; [facility] Work Phone: Start: 12-22-2022 Provider Instruction s for Treatment Reviewed Diagnostic Tests [facility]; [facility] Work Phone: Start: 12-01-2022 Procedure Education Eprescribe d prescriptions (G8553) [facility]; [facility] Work Phone: Start: 11-17-2022 Procedure Education Eprescribe d prescriptions (G8553) [facility]; [facility] Work Phone: Start: 09-05-2022 Procedure Education Eprescribe d prescriptions (G8553) [facility]; [facility] Work Phone: Start: 09-05-2022 Provider Instruction s for Treatment [facility]; [facility] Work Phone: Start: 09-05-2022 Urine albumin quantitative MICROALBUMIN: CREATININE RATIO (62198) AND (05556) [facility]; [facility] Work Phone: Start: 09-05-2022 25 hydroxy includes fractions if performed CALCIFIDIOL (86785) VIT D 25 [facility]; [facility] Work Phone: Start: 09-05-2022 Assay of thyroid stimulating hormone tsh TSH (13447) [facility]; [facility] Work Phone: Start: 09-05-2022 Lipid panel LIPID PANEL (51053) [facility]; [facility] Work Phone: Start: 09-05-2022 Comprehensive metabo lic panel METABOLIC PANEL, COMPREHENSIVE (63278) [facility]; [facility] Work Phone: Start: 09-05-2022 Blood count complete auto&auto difrntl wbc CBC W/AUTO DIFF WBC (56380) [facility]; [facility] Work Phone: Start: 07-20-2022 Procedure Education Eprescribe d prescriptions (G8553) [facility]; [facility] Work Phone: Start: 07-20-2022 Provider Instruction s for Treatment Follow up if no improvement or if symptoms worsen [facility]; [facility] Work Phone: Start: 06-23-2022 Procedure Education Eprescribe d prescriptions (G8553) [facility]; [facility] Work Phone: Start: 06-23-2022 Provider Instruction s for Treatment Reviewed Diagnostic Tests [facility]; [facility] Work Phone: Start: 03-24-2022 Procedure Education Eprescribe d prescriptions (G8553) [facility]; [facility] Work Phone: Start: 03-24-2022 Provider Instruction s for Treatment [facility]; [facility] Work Phone: Start: 03-24-2022 Lipid panel LIPID PANEL (03307) [facility]; [facility] Work Phone: Start: 11-08-2021 Procedure Education Eprescribe d prescriptions (G8553) [facility]; [facility] Work Phone: Start: 11-08-2021 Provider Instruction s for Treatment [facility]; [facility] Work Phone: Start: 11-08-2021 Oncology colorectal screening devonte 10 dna markrs Cologuard - Strool Based DNA Test, CRC SCREEN (76530) [facility]; [facility] Work Phone: Start: 08-23-2021 Procedure Education Eprescribe d prescriptions (G8553) [facility]; [facility] Work Phone: Start: 08-23-2021 Provider Instruction s for Treatment [facility]; [facility] Work Phone: Start: 08-23-2021 Hepatitis c antibody HEPATITIS C ANTIBODY (63127) [facility]; [facility] Work Phone: Start: 08-23-2021 25 hydroxy includes fractions if performed CALCIFIDIOL (46914) VIT D 25 [facility]; [facility] Work Phone: Start: 08-23-2021 Assay of thyroid stimulating hormone tsh TSH (82866) [facility]; [facility] Work Phone: Start: 08-23-2021 Urnls dip stick/tabl et reagent auto microscopy URINALYSIS, W/ MICRO (88100) [facility]; [facility] Work Phone: Start: 08-23-2021 Urine albumin quantitative MICROALBUMIN: CREATININE RATIO (65008) AND (09817) [facility]; [facility] Work Phone: Start: 08-23-2021 Comprehensive metabo lic panel METABOLIC PANEL, COMPREHENSIVE (88742) [facility]; [facility] Work Phone: Start: 08-23-2021 Lipid panel LIPID PANEL (05650) [facility]; [facility] Work Phone: Start: 08-23-2021 Blood count complete auto&auto difrntl wbc CBC W/AUTO DIFF WBC (64199) [facility]; [facility] Work Phone: Start: 03-09-2021 Procedure Education Eprescribe d prescriptions (G8553) [facility]; [facility] Work Phone: Start: 03-09-2021 Provider Instruction s for Treatment [facility]; [facility] Work Phone: Start: 03-09-2021 Culture bct isol&prs mptv id isolate ea urine URINE HEIDI CULTURE-IDENTIFICATN (35799) [facility]; [facility] Work Phone: Start: 02-05-2021 Procedure Education Eprescribe d prescriptions (G8553) [facility]; [facility] Work Phone: Start: 02-05-2021 Provider Instruction s for Treatment Reviewed Lab [facility]; [facility] Work Phone: Start: 01-22-2021 Procedure Education Eprescribe d prescriptions (G8553) [facility]; [facility] Work Phone: Start: 01-22-2021 Provider Instruction s for Treatment [facility]; [facility] Work Phone: Start: 01-22-2021 Urnls dip stick/tabl et reagent auto microscopy URINALYSIS, W/ MICRO (95075) [facility]; [facility] Work Phone: Start: 01-22-2021 Urine albumin quantitative MICROALBUMIN: CREATININE RATIO (77857) AND (40444) [facility]; [facility] Work Phone: Start: 01-22-2021 Comprehensive metabo lic panel METABOLIC PANEL, COMPREHENSIVE (42479) [facility]; [facility] Work Phone: Start: 01-22-2021 Lipid panel LIPID PANEL (42158) [facility]; [facility] Work Phone: Start: 01-22-2021 Blood count complete auto&auto difrntl wbc CBC W/AUTO DIFF WBC (49722) [facility]; [facility] Work Phone: Start: 08-06-2020 Procedure Education Eprescribe d prescriptions (G8553) [facility] Work Phone: Start: 08-06-2020 Provider Instruction s for Treatment [facility] Work Phone: Start: 08-06-2020 Assay of thyroid stimulating hormone tsh TSH (46627) [facility] Work Phone: Comment on above: do this lab in 2019 Start: 08-06-2020 TSH Qn TSH (89811) [facility] Work Phone: Comment on above: do this lab in 2019 Start: 06-17-2020 TSH Qn TSH (THYROID STIMULATING HORMONE) (83558) [facility] Work Phone: Start: 06-17-2020 Blood count complete auto&auto difrntl wbc CBC W/AUTO DIFF WBC (00229) [facility] Work Phone: Start: 06-17-2020 Comprehensive metabo lic panel METABOLIC PANEL, COMPREHENSIVE (00822) [facility] Work Phone: Start: 04-27-2020 Provider Instruction s for Treatment [facility] Work Phone: Start: 04-27-2020 Lipid panel LIPID PANEL (30093) [facility] Work Phone: [facility] Work Phone: [facility] Work Phone: [facility] Work Phone: [facility] Work Phone: [facility] Work Phone: [facility]; [facility] Work Phone: [facility]; [facility] Work Phone: [facility] Work Phone: [facility]; [facility] Work Phone: [facility]; [facility] Work Phone: [facility]; [facility] Work Phone: [facility]; [facility] Work Phone: Immunizations Immunization Date Immunization Notes Care Provider [facility] 04-26-2022 zoster vaccine, live Kathlee n Ousmane DO Work Phone: [facility]; [facility] Work Phone: 02-08-2022 zoster vaccine, live Kathlee n Ousmane DO Work Phone: [facility]; [facility] Work Phone: 10-27-2021 COVID-Moderna (100 MCG/0.5 ML) Jennifer Ousmane DO Work Phone: [facility]; [facility] Work Phone: 11-27-2020 COVID-Nikolay (AD26 .5 ML) Jennifer Ousmane DO Work Phone: [facility]; [facility] Work Phone: Payers Date Payer Category Payer Unknown 2024 Self-pay [id number] 2024 Medicare [id number] 2020 Medicare [id number] 2020 Unknown [id number] 1950 Unknown [id number] Unknown MMO/[employer] [id number] Unknown [id number] Unknown [id number] Unknown [id number] Unknown [id number] Unknown [id number] Social History Date Type Detail Facility Start: 04-29-2021 End: 01-26-2024 Tobacco smoking status NHIS Unknown if ever smoked [facility] Start: 1950 Sex Assigned At Female [facility] NEGATED: Highlighted row [facility] Medical Equipment Procedure Code Equipment Code Equipment Origin al Text Equipment Identifier Dates REF- [id number] CRUCIATE RETAINING FEMORAL FDA Start: 02-21-2024 REF- [id number] TIBIAL BEARING INSERT FDA Start: 02-21-2024 REF- [id number] TIBIAL COMPONENT FDA Start: 02-21-2024 REF- [id number] ASYMMETRIC PATELLA FDA Start: 02-21-2024 REF- [id number] CRUCIATE RETAINING FEMORAL FDA Start: 02-21-2024 REF- [id number] TIBIAL BEARING INSERT FDA Start: 02-21-2024 REF- [id number] TIBIAL COMPONENT FDA Start: 02-21-2024 REF- [id number] ASYMMETRIC PATELLA FDA Start: 02-21-2024 Goals Date Patient Goal Desired Activity /State Functional Status Date Assessment Result Facility 02-22-2024 Functional status Ambulates [facility] Work Phone: 02-21-2024 Functional status Tolerates Activity Well [facility] Work Phone: Mental Status Date Assessment Result Facility 02-22-2024 Cognitive function Level Of Cons ciousness Awake;Alert;Appropriate;Follow s Commands [facility] Work Phone: 02-21-2024 Cognitive function Light Pain [facility] Work Phone: Clinical Notes 02-21-2024 to 02-22-2024 Note Date & Type Note Facility 02-22-2024 Discharge summary Note Date/Time February 22, 2024 10:07am [facility] Medical Records Department [address] [place] [address] Instructions for Home/Discharge Instructions 02/22/24 1006 MR#: [id number] Acct: [id number] Name: NAVEEN FUENTES Rep #:[id number] : 1950 73 From: Trevin PENALOZA PA-C PCP: Dr. Jennifer Romeo, DO Status:AD M MORENITA Discharge Instructions Diet Discharge Diet: No restrictions Activity Discharge Activity: May Not Drive (No driving for 6 weeks postoperatively. Mustalso be off all narcotics and able to walk 100 feet without the use of cane or walker.) May shower in (days): 1 (Please turn dressing away from water. Okay to get wet as long as dressing is intact to skin.) Ice area for (Minutes): 20 (Every 1-2 hours while awake[address] Please place barrier between the skin and ice pack.) Weight Bearing Status: Weight bearing as tolerated Keep extremity elevated above heart level: Operative Extremity Dressing / Incision Call your doctor if your incision/area has: Continuous Slow Oozing, Sudden Increased Bleeding, Increased Pain/ Swelling, Increased Redness and Foul Smelling Discharge Call your doctor if you observe: Fever of 101 or Higher, Coldness, Increased Pain, Numbness or Tingling, Change in Color, Shortness of breath, Chest pain, Calf discomfort and Uncontrolled pain Remove Dressing in: 4 days (Okay to remove dressing on February 26, 2024) Additional Dressing/Incision Instructions:: Follow [facility] Post-op Instructions. Once postoperative dressing has been removed only use gentle soap and water overthe incision. Do not use any ointments, Neosporin, salves, alcohol pads over the incision for 6 weeks postoperatively. Do not submerge underwater for 6 weeks postoperatively. Continue with MACHELLE hose/elastic stockings for 2 weeks postoperatively. May remove at nighttime but needs to be placed back on the leg during the day. Do NOT use alcohol with narcotic pain medication. Do NOT make important decisions while taking narcotic medication. If you have problems with taking your medication (rash, itching, nausea, etc.) call the office at once. Follow Up Care Test Results: Test results from this visit will be discussed in further detail at your follow-up appointment, if applicable. Discharge Plan Admission Admit Date/Time: 02/21/24 06:55 Attending Provider: Kade Barnett Primary Care Provider: Jennifer Romeo Consulting Providers: Bonnie Lindsey Discharge Orders/Prescriptions Prescriptions: New acetaminophen 500 mg Tablet 1,000 mg PO Q8 14 Days Qty: 84 0RF Rx Instructions: Do not take more than 3000 mg Tylenol in a 24-hour period. aspirin 81 mg Tablet,Chewable 81 mg PO BID 30 Days Qty: 60 0RF Rx Instructions: Take 81 mg aspirin twice daily for 4 weeks postoperatively for DVT prophylaxis. famotidine 20 mg Tablet 20 mg PO DAILY 30 Days Qty: 30 0RF oxycodone 5 mg Tablet 5 - 10 mg PO Q4H PRN PRN (Reason: Pain Score 4-10) 7 Days Qty: 42 0RF sennosides-docusate sodium [Stool Softener-Stimulant Laxat] 8.6-50 mg Tablet 2 tab PO BID 3 Days Qty: 12 0RF Rx Instructions: Take until first bowel movement, then as needed Continued omega-3 fatty acids 1,000 MG capsule 1,000 mg PO DAILY fluticasone propionate 1 SPRAY spray,suspension 2 spray intranasal DAILY PRN (Reason: nasal congestion) cholecalciferol (vitamin D3) [Vitamin D3] 1,000 UNIT capsule 1,000 unit PO DAILY glucosamine-chondroitin 900 MG tablet 900 mg PO DAILY biotin 1 MG capsule 1 mg PO DAILY L.acidoph, paracasei,B. lactis 1 EACH capsule 1 ea PO DAILY celecoxib 100 mg capsule 100 mg PO BID calcium carbonate [Calcium 600] 600 mg calcium (1,500 mg) tablet 600 mg PO DAILY Discontinued diphenhydramine-acetaminophen [Tylenol PM Extra Strength] 1 tab PO QHS Referrals / Follow Up: physical,therapy [Other] - 02/26/24 Jennifer Romeo DO [Primary Care Provider] - Trevin Kim PA-C [Med Staff - [facility] Practice Prof] - 03/07/24 1:45 pm Disposition Disposition (needs filled in before D/C Order can be placed): Home, Self Care 02/22/24 1015<Electronically signed by Trevin PENALOZA PA-C>Trevin PENALOZA PA-C CC: Dr. Jennifer Romeo DO; Dr. Bonnie Lindsey DO ~ Signed [facility] Work Phone: 1(908) 836-593103-28-2024 Progress [facility] February 22, 2024 10:06am Note Date/Time February 22, 2024 10: 06am [facility] Medical Records Department [address] [place] [id number] Progress Note - Orthopedic 02/22/24 1000 MR#: [id number] Acct: [id number] Name: NAVEEN FUENTES Rep #:[id number] : 1950 73 From: Trevin PENALOZA PA-C PCP: Dr. Jennifer Romeo DO Status:AD M MORENITA Location: MS3 MP365-9 Subjective Subjective The patient was sitting in bed upon examination with present. Patient denies any chest pain, shortness of breath, dizziness, lightheadedness, nausea or vomiting, or calf pain. Pain is controlled on medications. No adverse overnight events. Patient overall is doing well today. She did very well with physical therapy. She has had some elevated blood pressure without diagnosis ofhypertension. She denies any chest pain or rapid heart rate. No shortness of breath. Denies any headache. Objective Data Objective Data Vital Signs: Vital Signs Temp Pulse Resp BP Pulse Ox O2 Del Method O2 Flow Rate 98.7 F 82 18 166/87 H 98 Room Air 4 02/22/24 08:00 02/22/24 08:00 02/22/24 08:00 02/22/24 08:00 02/22/24 08:00 02/22/24 08:00 02/21/24 11:42 Oxygen Flow Rate (L/min) 4 Oxygen Delivery Method Room Air Weight: 51 kg Body Mass Index (BMI) 21.2 Intake & Output: Intake and Output for Last 24 Hours 02/20/24 02/21/24 02/22/24 23:59 23:59 23:59 Intake Total 3268.33 / 3318.33 258 / 258 Balance 3268.33 / 3318.33 258 / 258 Lab / Micro Data 02/22/24 06:15 02/22/24 06:15 Labs: Laboratory Results - last 24 hr 02/21/24 10:10: POC Glucose 155 H 02/22/24 06:15: WBC 9.1, RBC 3.76 L, Hgb 11.0 L, Hct 33.8 L, MCV 89.9, MCH 29.3,MCHC 32.5, RDW Std Deviation 42.5, RDW Coeff of Rae 12.9, Plt Count 297, MPV 10.3, Sodium 136, Potassium 3.8, Chloride 105, Carbon Dioxide 26.0, Anion Gap 5,BUN 15, Creatinine 0.78, Estim Creat Clear Calc 47.26, Est GFR (MDRD) Af Amer 93, Est GFR (MDRD) Non-Af 77, BUN/Creatinine Ratio 19.3, Glucose 111 H, Calcium 8.8 Micro: Microbiology 02/01/24 13:38 Swab (Method) Nasal Screen MRSA/MSSA - Final Physical Exam Narrative Vital signs stable and afebrile. Mildly elevated blood pressure SCDs and MACHELLE hose are in place bilaterally Patient is able to plantarflex and dorsiflex actively. Sensation is intact to light touch to saphenous, sural, superficial and deep peroneal, and tibial distribution. Dressing is clean dry and intact. Negative Homans bilaterally, negative signs and symptoms of DVT. Const alert, oriented x3 and no apparent distress Assessment & Plan Assessment/Plan (1) Status post total right knee replacement: PLAN: 1. S/P robotic assisted right total knee arthroplasty POD #1 2. Continue Pain Medications: Patient is currently on Exer strength Tylenol andoxycodone. She takes Celebrex at home. They do have the ability to monitor herblood pressure at home. If it remains high I would recommend she hold the Celebrex. 3. DVT Prophylaxis: Take 81 mg aspirin twice daily for 4 weeks postoperatively for DVT prophylaxis. Patient denies past history of DVT or pulmonary embolism 4. PT/OT: Weightbearing as tolerated with walker. Patient did very well this morning with therapy. 5. H & H: 11.0/33.8, asymptomatic. Labs were reviewed and are stable. 6. Elevated blood pressure without diagnosis of hypertension: Case was discussed with the hospitalist and recommends no current treatment. Does recommend 1 week follow-up with the primary care physician to reassess blood pressure. I did discuss this with the patient. Patient does have the ability to monitor her blood pressure. If needed they will contact the primary care physician if having any complications prior to her scheduled visit. Case management will assist in scheduling appointment. 7. Continue postoperative medical management per medicine 8. Encouraged Incentive Spirometry 9. Disposition: Plan will be for discharge home today as patient has been cleared by medicine, has been tolerating therapy, and pain is adequately controlled. She would like her prescriptions E scribed to [facility]. She has outpatient physical therapy established. She will follow-up per postoperative instructions. Upon discharge she will contact our office withany concerns or questions. Case management is scheduling a 1 week follow-up with her primary care physician for reassessment of blood pressure. I have reviewed the [place] Automated Rx Reporting System (OARRS) report for this patient for refill pattern and other prescriber involvement as part of the appropriate surveillance for the provision of acute and chronic controlled medications. The report was requested and reviewed on the date of this entry and was considered in the prescribing process. This dictation was created using voice recognition software. Phonetic and/or grammatical errors may exist. 02/22/24 1006 <Electronically signed by Trevin PENALOZA PA-C> Cosigner Signature (if applicable): CC: ~ Signed [facility] Work Phone: 1(353) 469-290003-27-2024 Progress note Author Bonnie Lindsey [facility] February 21, 2024 4:44pm Note Date/Time February 21, 2024 3:3 2pm [facility] Medical Records Department [address] [place] [address] Progress Note - Hospitalist 02/21/24 1528 MR#: [id number] Acct: [id number] Name: NAVEEN FUENTES Rep #:[id number] : 1950 73 From: Bonnie Lindsey DO PCP: Dr. Jennifer Romeo, DO Status:AD M MORENITA Location: MS3 LT685-5 Reason for Visit Reason for Visit: Right knee osteoarthritis Subjective Subjective Mrs. Fuentes is a 73-year-old white female who presented to [facility] for an elective robotic assisted right total knee arthroplasty on 02/21/2024. She evidently had been having ongoing pain in bilateral knees for several years and failed outpatient conservative management. She met with Dr. Barnett and decided to proceed with a total knee arthroplasty. She was cleared medically by her primary care physician and taken to the OR this morning. We have been consulted for postoperative medical management of her chronic issues. She was seen on the medical floor after her surgery. Patient states she is feeling quite well and has been doing her exercises and has been out of bed. Denies any nausea and was able to eat without difficulty. Plan is for dischargehome tomorrow as long as she stable does well with therapy. No complaints at this time. Objective Data Objective Data Vital Signs: Vital Signs Temp Pulse Resp BP Pulse Ox O2 Del Method O2 Flow Rate 97.8 F 69 18 146/79 H 98 Room Air 4 02/21/24 15:14 02/21/24 15:14 02/21/24 15:14 02/21/24 15:14 02/21/24 15:14 02/21/24 15:14 02/21/24 11:42 Oxygen Flow Rate (L/min) 4 Oxygen Delivery Method Room Air Weight: 51 kg Body Mass Index (BMI) 21.2 Intake & Output: Intake and Output for Last 24 Hours 02/19/24 02/20/24 02/21/24 23:59 23:59 23:59 Intake Total 3218.33 / 3218.33 Balance 3218.33 / 3218.33 Lab / Micro Data 02/01/24 13:38 02/01/24 13:38 Labs: Laboratory Results - last 24 hr 02/21/24 06:13: POC Glucose 59 L 02/21/24 10:10: POC Glucose 155 H Micro: Microbiology 02/01/24 13:38 Swab (Method) Nasal Screen MRSA/MSSA - Final Radiography Diagnostic Testing: Radiology Impression Knee X-Ray 02/21/24 09:20 IMPRESSION: Status post total knee replacement. There is good alignment. Postoperative soft tissues changes. Electronically Signed: Mani Ignacio MD at 9:38 EDT , Physical Exam Const alert, oriented x3, no apparent distress, average body habitus, healthy appearing and well nourished Constitutional Narrative: Very pleasant, older, white female lying in bed, at bedside, appears comfortable and nontoxic, watching television HEENT head/scalp atraumatic and moist oral mucous membranes Head and Scalp: normocephalic Resp normal respiratory effort, no retractions, no use of accessory muscles and clearto auscultation bilaterally Auscultation: Negative for rales, rhonchi or wheezes Cardio regular rate, regular rhythm, S1 normal heart sound, S2 normal heart sound, no murmurs, no rub, no gallops and no clicks GI normal to inspection, nondistended, normoactive bowel sounds, soft to palpation and non-tender Extremity no clubbing, cyanosis or edema Extremity Narrative: MACHELLE hose in place, right lower extremity with polar ice in place, pedal pulses are 2+ Neuro oriented x3, moves all extremities and no focal motor deficits Speech: speech normal Psych affect normal Psych Narrative: Extremely pleasant, interacts appropriately Assessment & Plan Assessment/Plan (1) Osteoarthritis of right knee: PLAN: Plan Right knee osteoarthritis -Postop day 0 minimally invasive robotic total knee arthroplasty -PT/OT consultation per primary service -Pain management per primary service -Would recommend utilizing scheduled bowel regimen while on narcotics -Aspirin 81 mg p.o. twice daily and thigh-high Machelle stockings recommended for DVTprophylaxis -Plan is for outpatient follow-up in 2 weeks for wound check and any imaging that needs to be proceeded with and Dr. Barnett's office Hyperlipidemia -Patient is not on any chronic medication for this Seasonal allergies -Continue nasal fluticasone History of IBS -Restart home medications at discharge DVT prophylaxis -Aspirin 81 mg p.o. twice daily -MACHELLE stockings Disposition: -Patient appears to be stable -Will assess again tomorrow morning but follow peripherally as I do anticipate discharge in the next 24 hours Charges/Coding Visit Charges Inpatient E&M: 05350 Subs Hosp L2 02/21/24 1644 <Electronically signed by Bonnie Lindsey DO> Cosigner Signature (if applicable): CC: ~ Signed [facility] Work Phone: 1(260) 810-166503-27-2024 History and physical note Author Kade Barnett [facility] February 21, 2024 7:02am Note Date/Time February 12, 2024 11: 01pm [facility] Medical Records Department [address] [place] [id number] History & Physical Exam 02/12/24 2300 MR#: [id number] Acct: [id number] Name: NAVEEN FUENTES Rep #:[id number] : 1950 73 From: Trevin PENALOZA PA-C PCP: Dr. Jennifer Romeo DO Status:[facility] Location: [place] [address] History and Physical History and Physical? Patient Name: Naveen Fuentes : 1950 From:? TREVIN KIM PA-C? DATE OF PRE-OPERATIVE EXAM: 02/12/2024 DATE OF SURGERY:? 02/21/2024 SCHEDULED PROCEDURE:? Robotic-assisted right total knee arthroplasty HISTORY OF PRESENT ILLNESS: Preoperative history and physical exam was performed on February 12, 2024.? This fidencio 73-year-old female who is having ongoing pain in bilateral knees for several years.? Patient's pain is been intermittent, dull, sharp and sore.? She does state the right knee pain has been more progressive over the past several months.? She has increased pain with going up and down stairs and walking.? Patient has difficulty with activities of daily living including housework and any leisure activities such as hiking and hiking.? She feels unsafe going up anddown stairs.? She has tried conservative measures including rest, ice, heat, elevation and previous corticosteroid injection with no relief.? She has been through formal physical therapy, home exercises, care consultant and Visco supplementation injection without relief.? She has tried oral medications including ibuprofen, meloxicam and Celebrex.? She states she is able to toleratethe Celebrex.? She takes once daily.? She has also attempted bracing without significant relief.? She denies past history of surgery on the right knee.? After failing conservative measures and discussing all treatment options with Dr. Kade Barnett, the patient does wish to proceed with a right total knee arthroplasty.? Patient has obtained clearance from the primary care provider .? Patient has medical history pertinent for hypercholesterolemia and irritable bowel syndrome.? Patient denies past history of DVT or pulmonary embolism.? There is been no recent chest pain, shortness of breath, fevers chillsor recent infections.? Preoperatively patient's hemoglobin was found to be 11.7.? She denies past history of transfusions.? She does state that at one point when trying to get blood she was told she was not able to.? This happened many years ago.? She has not been treated for any anemia by the primary care provider.? She has been started on our anemia protocol preoperatively.? Per primary care physician not it was noted that she has had some elevated blood pressure readings.? She has been tolerating the Celebrex.? She has been taking it once daily. REVIEW OF SYSTEMS: Review Of Systems: Constitutional: Denies change in appetite, fever,or weight change. Cardiovasular: Denies chest pain, heart murmur and irregular heartbeat. Respiratory: Denies cough, pneumonia, shortness of breath, tuberculosis and wheezing. Gastrointestinal: Denies constipation, diarrhea, heartburn, nausea, rectal itching, bloody stools and vomiting. Genitourinary: Denies incontinence. Musculoskeletal: Reports leg swelling and pain, but denies trouble walking and weakness. Skin: Denies Raynaud's, history of shingles and tattoo. Neurological: Denies ambulatory dysfunction, dizziness, numbness/tingling and tremor. Psychiatric: Reports anxiety, but denies insomnia and stress. Hematologic/Lymphatic: Denies anemia, bleeding/bruising tendency and past transfusion. Reviewed, no changes. PAST MEDICAL HISTORY: Advance Care Plan: No Advance Directives Effective Date: 07/02/2020 Past Medical History: Medical Problems: Hypercholesterolemia, Arthritis Covid- 19 - (09/2020) IBS Accidents: None Surgical Hx: Hernia Repair - (1983) Tubal Ligation - (1983) Thyroid SX - (04/2020) L4-5 (bilateral) Transforaminal Epidural Steroid Injection - (03/15/2022) Dr Freda Da Silva @ [facility] Anesthesia Complications: None Assistive Devices: None Reviewed and updated. SOCIAL HISTORY: Social History: Marital: .Occupation: Retired.Work Status: Retired.Hand Dominance: Right-handed. Personal Habits:? Cigarette Use: Never Smoked Cigarettes.Smokeless Tobacco: Never Used Smokeless Tobacco.E-Cigarette Use: Never used.Alcohol: Occasionally.Drug Use: Denies Use.Enjoy Exercising: Exercises 1-3 X/Week. Reviewed, no changes. VITALS: Ht: 60.5 Wt: 113lb Wt k.257 BMI: 21.7 BP: 132/80 Pulse: 60 Resp: 15 T: 97.0 T: 36.1C Pain Level: 0 O2SatR: 96 ALLERGIES: Sulfa Erythromycin Marcaine - Headache Xylocaine - Headache Latex Naproxen? MEDICATIONS: Glucosamine Chondroitin 1500 Complex 1500 Com, Fluticasone Propionate 50 mcg/Act1 spray nasally? daily, Biotin 5000 mcg po daily, Vitamin C? 1 po qd, Probiotic?1 po qd, Zinc 50 mg 1po qday, Prevagen 10 mg 1po qday, Fish Oil 1000 mg daily, Calcium + D3 600-200 daily, Vitamin D3 250 mcg ([address] Ut) daily, Tylenol 8 Hour 650 mg twice a day prn, Celebrex 50 mg once a day, Ferrous Sulfate 325 (65 Fe) MG take 1 tablet by mouth twice a day, Folic Acid 1 mg 1 by mouth every day PRE-OP EXAM:? General appearance:NORMAL? ? ? Other: Eyes: Conjunctivae and lids: NORMAL? Pupils: ERR Ears, Nose, Mouth, and Throat: NORMAL? Other: Inspection of lips, teeth and gums: NORMAL? ?Other: Neck: Examination of neck: no masses noted. Respiratory: Assessment of respiratory effort: NORMAL? ?Other: ?Auscultation of lungs: clear to auscultation no wheezes, rhonchi or rales. Cardiovascular:? Auscultation of heart: regular rate and rhythm, no murmurs, gallops or rubs. PHYSICAL EXAMINATION: Patient does walk with an antalgic gait.? She has tenderness to palpation along the lateral joint line.? She has valgus alignment which is partially correctable.? She has crepitus with range of motion.? Range of motion: Lacks 3 full extension to 110 flexion with increased pain.? Stable to anterior/posteriordrawer exam.? Sensation intact to light touch. IMAGING STUDIES: Previous x-rays of the right knee reveal valgus alignment and lateral joint space narrowing, subchondral sclerosis, osteophyte formation consistent with severe stage IV osteoarthritis IMPRESSION: 1.? Severe right knee osteoarthritis 2.? Severe left knee osteoarthritis 3.? Hypercholesterolemia 4.? Irritable bowel syndrome 5.? Anemia: Current hemoglobin 11.7 preoperatively 6.? Elevated blood pressure without diagnosis of hypertension PLAN: Dr. Kade Barnett did discuss and review with the patient all treatment options including surgical versus nonsurgical options.? Patient does wish to proceed with the above-stated procedure.? Potential risks, benefits, and complications of the procedure were discussed in detail including but not limited to , infection, nerve and blood vessel damage, persistent pain, numbness, tingling, paresthesias, blood clot, pulmonary embolism, and requirement for possible further surgery.? The patient expressed full understanding and has no further questions for the doctor.? Patient does agree to proceed with the above-stated procedure and has signed the surgery consent form. POST-OP MEDICATION PLAN: Pain Medications:? ?Pain regimen will be initiated by Dr. Kade Barnett in the hospital.? Patient is currently on Celebrex in which she tolerates.? Patient hasbegun anemia protocol in which she was started on ferrous sulfate and folic acid.? Preoperatively her hemoglobin was 11.7.?? DVT Prophylaxis:? Aspirin 81 mg twice daily for 4 weeks postoperatively.? Deniespast history of DVT or pulmonary embolism This dictation was created using voice recognition software. Phonetic and/or grammatical errors may exist. ___? I have re-examined the patient.? There are no clinical changes since date of exam. ___? See progress notes for changes. ___? Dictated on admission Date: ? ? ?Time: Signature: 02/12/24 2301 <Electronically signed by Trevin PENALOZA PA-C> Cosigner Signature (if applicable): CC: MANAS Kim; Dr. Jennifer Romeo DO; Dr. Kade Barnett MD~ Signed ADDENDUM by Dr. Kade Barnett MD on 02/21/24 at 0702 Addendum I have examined the patient and the H&P has been reviewed. There are no clinicalchanges since date of exam. 02/21/24 07<Electronically signed by Kade Barnett MD> Cosigner Signature (if applicable): cc: MANAS Kim; Dr. Jennifer Romeo DO; Dr. Kade Barnett MD ~* Signed [facility] Work Phone: 1(398) 135-133903-27-2024 Procedure [facility] Consult note Author Shraddha Ford [facility] February 22, 2024 2:23pm Note Date/Time February 22, 2024 2:2 3pm [facility] Medical Records Department [address] [place] [address] Counseling Note - Pharmacy 02/22/24 1422 MR#: [id number] Acct: [id number] Name: NAVEEN FUENTES Rep #:[id number] : 1950 73 From: Shraddha Ford PCP: Dr. Jennifer Romeo DO Status:AD M [facility] Y [facility] has performed discharge medication reconciliation and counseling for this patient. The patient's discharge medication list was reviewed for discrepancies and discrepancies were resolved. The patient was counseled on the following discharge medications and changes in medications for homegoing were reviewed. 1. OXYCODONE 2. TYLENOL 3. ASPIRIN 4. SENNA-S 5. FAMOTIDINE The Reason for Use, instructions for use, and potential side effects were reviewed for all new medications. The patient's questions regarding all of their medications were answered. The patient was able to verbally demonstrate an understanding of their dischargemedications. Medications at Discharge Home Medications L.acidoph, paracasei,B. lactis 10 billion cell capsule 1 ea PO DAILY 11/13/17 antiarthritic combination no.2 900 mg tablet (glucosamine-chondroitin) 900 mg PODAILY 11/13/17 biotin 1 mg capsule 1 mg PO DAILY 11/13/17 cholecalciferol (vitamin D3) 25 mcg (1,000 unit) capsule (Vitamin D3) 1,000 unitPO DAILY 11/13/17 fluticasone propionate 50 mcg/actuation nasal spray,suspension 2 spray intranasal DAILY PRN nasal congestion 11/13/17 omega-3 fatty acids 1,000 mg capsule 1,000 mg PO DAILY 11/13/17 celecoxib 100 mg capsule 100 mg PO BID 01/26/24 calcium carbonate 600 mg calcium (1,500 mg) tablet (Calcium) 600 mg PO DAILY 02/21/24 acetaminophen 500 mg tablet 1,000 mg (2 x 500 mg) PO Q8 14 days #84 tabs 02/22/24 aspirin 81 mg chewable tablet 81 mg PO BID 30 days #60 tabs 02/22/24 famotidine 20 mg tablet 20 mg PO DAILY 30 days #30 tabs 02/22/24 oxycodone 5 mg tablet 5 - 10 mg (1 - 2 x 5 mg) PO Q4H PRN PRN Pain Score 4-10 7 days #42 tabs 02/22/24 sennosides 8.6 mg-docusate sodium 50 mg tablet (Stool Softener-Stimulant Laxative) 2 tab PO BID 3 days #12 tabs 02/22/24 02/22/24 2633 <Electronically signed by Shraddha Ford > Date _ Shraddha Ford Cosigner Signature (if applicable): Date CC: ~ Signed [facility] Work Phone: Evaluation noteNo assessment information available [facility] Work Phone: evaluation note* Diagnosis Onset Date Resolution Status Osteoarthritis of right knee acute Status post total right knee replacement acute [facility] Work Phone: Instructions* Name Dates Details Patient Instructions Indication:Urinary frequency Start:09-Mar-2021 Instruction Type:Provider Instructions for Treatment How to Access Health Informa tion Online using Patient Portal and 3rd Republican Apps Indication:Urinary frequency Start:09-Mar-2021 Instruction Type:Patient Education Patient Instructions Indication:HTN (hypertension) Start:05-Feb-2021 Instruction Type:Provider Instructions for Treatment How to Access Health Informa tion Online using Patient Portal and [employer] Republican Apps Indication:HTN (hypertension) Start:05-Feb-2021 Instruction Type:Patient Education Patient Instructions Indication:BMI 21.0-21.9, adult Start:22-Jan-2021 Instruction Type:Provider Instructions for Treatment How to Access Health Informa tion Online using Patient Portal and [employer] Apps Indication:BMI 21.0-21.9, adult Start:22-Jan-2021 Instruction Type:Patient Education How to access health informa tion online Indication:Non-smoker Start:06-Aug-2020 Instruction Type:Patient Education How to access health informa tion online - Detail Indication:Non-smoker Start:06-Aug-2020 Instruction Type:Patient Education Patient Instructions Indication:Non-smoker Start:06-Aug-2020 Instruction Type:Provider Instructions for Treatment [facility] Work Phone: Instructions* Name Dates Details Patient Instructions Indication:Urinary frequency Start:09-Mar-2021 Instruction Type:Provider Instructions for Treatment How to Access Health Informa tion Online using Patient Portal and [employer] Apps Indication:Urinary frequency Start:09-Mar-2021 Instruction Type:Patient Education Patient Instructions Indication:HTN (hypertension) Start:05-Feb-2021 Instruction Type:Provider Instructions for Treatment How to Access Health Informa tion Online using Patient Portal and [employer] Apps Indication:HTN (hypertension) Start:05-Feb-2021 Instruction Type:Patient Education Patient Instructions Indication:BMI 21.0-21.9, adult Start:22-Jan-2021 Instruction Type:Provider Instructions for Treatment How to Access Health Informa tion Online using Patient Portal and 3rd Republican Apps Indication:BMI 21.0-21.9, adult Start:22-Jan-2021 Instruction Type:Patient Education How to access health informa tion online Indication:Non-smoker Start:06-Aug-2020 Instruction Type:Patient Education How to access health informa tion online - Detail Indication:Non-smoker Start:06-Aug-2020 Instruction Type:Patient Education Patient Instructions Indication:Non-smoker Start:06-Aug-2020 Instruction Type:Provider Instructions for Treatment [facility] Work Phone: Instructions* Name Dates Details Patient Instructions Indication:BMI 21.0-21.9, adult Start:08-Nov-2021 Instruction Type:Provider Instructions for Treatment How to Access Health Informa tion Online using Patient Portal and 3rd Republican Apps Indication:BMI 21.0-21.9, adult Start:08-Nov-2021 Instruction Type:Patient Education Patient Instructions Indication:Non-smoker Start:23-Aug-2021 Instruction Type:Provider Instructions for Treatment How to Access Health Informa tion Online using Patient Portal and 3rd Republican Apps Indication:Non-smoker Start:23-Aug-2021 Instruction Type:Patient Education Patient Instructions Indication:Urinary frequency Start:09-Mar-2021 Instruction Type:Provider Instructions for Treatment How to Access Health Informa tion Online using Patient Portal and 3rd Republican Apps Indication:Urinary frequency Start:09-Mar-2021 Instruction Type:Patient Education Patient Instructions Indication:HTN (hypertension) Start:05-Feb-2021 Instruction Type:Provider Instructions for Treatment How to Access Health Informa tion Online using Patient Portal and 3rd Republican Apps Indication:HTN (hypertension) Start:05-Feb-2021 Instruction Type:Patient Education Patient Instructions Indication:BMI 21.0-21.9, adult Start:22-Jan-2021 Instruction Type:Provider Instructions for Treatment How to Access Health Informa tion Online using Patient Portal and 3rd Republican Apps Indication:BMI 21.0-21.9, adult Start:22-Jan-2021 Instruction Type:Patient Education How to access health informa tion online Indication:Non-smoker Start:06-Aug-2020 Instruction Type:Patient Education How to access health informa tion online - Detail Indication:Non-smoker Start:06-Aug-2020 Instruction Type:Patient Education Patient Instructions Indication:Non-smoker Start:06-Aug-2020 Instruction Type:Provider Instructions for Treatment [facility] Work Phone: instructions* Name Dates Details Patient Instructions Indication:BMI 21.0-21.9, adult Start:08-Nov-2021 Instruction Type:Provider Instructions for Treatment How to Access Health Informa tion Online using Patient Portal and 3rd Republican Apps Indication:BMI 21.0-21.9, adult Start:08-Nov-2021 Instruction Type:Patient Education Patient Instructions Indication:Non-smoker Start:23-Aug-2021 Instruction Type:Provider Instructions for Treatment How to Access Health Informa tion Online using Patient Portal and 3rd Republican Apps Indication:Non-smoker Start:23-Aug-2021 Instruction Type:Patient Education Patient Instructions Indication:Urinary frequency Start:09-Mar-2021 Instruction Type:Provider Instructions for Treatment How to Access Health Informa tion Online using Patient Portal and 3rd Republican Apps Indication:Urinary frequency Start:09-Mar-2021 Instruction Type:Patient Education Patient Instructions Indication:HTN (hypertension) Start:05-Feb-2021 Instruction Type:Provider Instructions for Treatment How to Access Health Informa tion Online using Patient Portal and 3rd Republican Apps Indication:HTN (hypertension) Start:05-Feb-2021 Instruction Type:Patient Education Patient Instructions Indication:BMI 21.0-21.9, adult Start:22-Jan-2021 Instruction Type:Provider Instructions for Treatment How to Access Health Informa tion Online using Patient Portal and 3rd Republican Apps Indication:BMI 21.0-21.9, adult Start:22-Jan-2021 Instruction Type:Patient Education How to access health informa tion online Indication:Non-smoker Start:06-Aug-2020 Instruction Type:Patient Education How to access health informa tion online - Detail Indication:Non-smoker Start:06-Aug-2020 Instruction Type:Patient Education Patient Instructions Indication:Non-smoker Start:06-Aug-2020 Instruction Type:Provider Instructions for Treatment [facility] Work Phone: Instructions* Name Dates Details How to access health informa tion online Indication:Non-smoker Start:06-Aug-2020 Instruction Type:Patient Education How to access health informa tion online - Detail Indication:Non-smoker Start:06-Aug-2020 Instruction Type:Patient Education Patient Instructions Indication:Non-smoker Start:06-Aug-2020 Instruction Type:Provider Instructions for Treatment [facility] Work Phone: Instructions* Name Dates Details Patient Instructions Indication:BMI 21.0-21.9, adult Start:24-Mar-2022 Instruction Type:Provider Instructions for Treatment How to Access Health Informa tion Online using Patient Portal and 3rd Republican Apps Indication:BMI 21.0-21.9, adult Start:24-Mar-2022 Instruction Type:Patient Education Patient Instructions Indication:BMI 21.0-21.9, adult Start:08-Nov-2021 Instruction Type:Provider Instructions for Treatment How to Access Health Informa tion Online using Patient Portal and 3rd Republican Apps Indication:BMI 21.0-21.9, adult Start:08-Nov-2021 Instruction Type:Patient Education Patient Instructions Indication:Non-smoker Start:23-Aug-2021 Instruction Type:Provider Instructions for Treatment How to Access Health Informa tion Online using Patient Portal and 3rd Republican Apps Indication:Non-smoker Start:23-Aug-2021 Instruction Type:Patient Education Patient Instructions Indication:Urinary frequency Start:09-Mar-2021 Instruction Type:Provider Instructions for Treatment How to Access Health Informa tion Online using Patient Portal and 3rd Republican Apps Indication:Urinary frequency Start:09-Mar-2021 Instruction Type:Patient Education Patient Instructions Indication:HTN (hypertension) Start:05-Feb-2021 Instruction Type:Provider Instructions for Treatment How to Access Health Informa tion Online using Patient Portal and 3rd Republican Apps Indication:HTN (hypertension) Start:05-Feb-2021 Instruction Type:Patient Education Patient Instructions Indication:BMI 21.0-21.9, adult Start:22-Jan-2021 Instruction Type:Provider Instructions for Treatment How to Access Health Informa tion Online using Patient Portal and 3rd Republican Apps Indication:BMI 21.0-21.9, adult Start:22-Jan-2021 Instruction Type:Patient Education How to access health informa tion online Indication:Non-smoker Start:06-Aug-2020 Instruction Type:Patient Education How to access health informa tion online - Detail Indication:Non-smoker Start:06-Aug-2020 Instruction Type:Patient Education Patient Instructions Indication:Non-smoker Start:06-Aug-2020 Instruction Type:Provider Instructions for Treatment [facility] Work Phone: Instructions* Name Dates Details Patient Instructions Indication:Non-smoker Start:23-Jun-2022 Instruction Type:Provider Instructions for Treatment How to Access Health Informa tion Online using Patient Portal and 3rd Republican Apps Indication:Non-smoker Start:23-Jun-2022 Instruction Type:Patient Education Patient Instructions Indication:BMI 21.0-21.9, adult Start:24-Mar-2022 Instruction Type:Provider Instructions for Treatment How to Access Health Informa tion Online using Patient Portal and 3rd Republican Apps Indication:BMI 21.0-21.9, adult Start:24-Mar-2022 Instruction Type:Patient Education Patient Instructions Indication:BMI 21.0-21.9, adult Start:08-Nov-2021 Instruction Type:Provider Instructions for Treatment How to Access Health Informa tion Online using Patient Portal and 3rd Republican Apps Indication:BMI 21.0-21.9, adult Start:08-Nov-2021 Instruction Type:Patient Education Patient Instructions Indication:Non-smoker Start:23-Aug-2021 Instruction Type:Provider Instructions for Treatment How to Access Health Informa tion Online using Patient Portal and 3rd Republican Apps Indication:Non-smoker Start:23-Aug-2021 Instruction Type:Patient Education Patient Instructions Indication:Urinary frequency Start:09-Mar-2021 Instruction Type:Provider Instructions for Treatment How to Access Health Informa tion Online using Patient Portal and 3rd Republican Apps Indication:Urinary frequency Start:09-Mar-2021 Instruction Type:Patient Education Patient Instructions Indication:HTN (hypertension) Start:05-Feb-2021 Instruction Type:Provider Instructions for Treatment How to Access Health Informa tion Online using Patient Portal and 3rd Republican Apps Indication:HTN (hypertension) Start:05-Feb-2021 Instruction Type:Patient Education Patient Instructions Indication:BMI 21.0-21.9, adult Start:22-Jan-2021 Instruction Type:Provider Instructions for Treatment How to Access Health Informa tion Online using Patient Portal and 3rd Republican Apps Indication:BMI 21.0-21.9, adult Start:22-Jan-2021 Instruction Type:Patient Education How to access health informa tion online Indication:Non-smoker Start:06-Aug-2020 Instruction Type:Patient Education How to access health informa tion online - Detail Indication:Non-smoker Start:06-Aug-2020 Instruction Type:Patient Education Patient Instructions Indication:Non-smoker Start:06-Aug-2020 Instruction Type:Provider Instructions for Treatment [facility] Work Phone: Instructions* Name Dates Details Patient Instructions Indication:UTI symptoms Start:20-Jul-2022 Instruction Type:Provider Instructions for Treatment How to Access Health Informa tion Online using Patient Portal and [employer] Apps Indication:UTI symptoms Start:20-Jul-2022 Instruction Type:Patient Education Patient Instructions Indication:Non-smoker Start:23-Jun-2022 Instruction Type:Provider Instructions for Treatment How to Access Health Informa tion Online using Patient Portal and [employer] Apps Indication:Non-smoker Start:23-Jun-2022 Instruction Type:Patient Education Patient Instructions Indication:BMI 21.0-21.9, adult Start:24-Mar-2022 Instruction Type:Provider Instructions for Treatment How to Access Health Informa tion Online using Patient Portal and [employer] Apps Indication:BMI 21.0-21.9, adult Start:24-Mar-2022 Instruction Type:Patient Education Patient Instructions Indication:BMI 21.0-21.9, adult Start:08-Nov-2021 Instruction Type:Provider Instructions for Treatment How to Access Health Informa tion Online using Patient Portal and [employer] Apps Indication:BMI 21.0-21.9, adult Start:08-Nov-2021 Instruction Type:Patient Education Patient Instructions Indication:Non-smoker Start:23-Aug-2021 Instruction Type:Provider Instructions for Treatment How to Access Health Informa tion Online using Patient Portal and [employer] Apps Indication:Non-smoker Start:23-Aug-2021 Instruction Type:Patient Education Patient Instructions Indication:Urinary frequency Start:09-Mar-2021 Instruction Type:Provider Instructions for Treatment How to Access Health Informa tion Online using Patient Portal and [employer]rd [employer] Apps Indication:Urinary frequency Start:09-Mar-2021 Instruction Type:Patient Education Patient Instructions Indication:HTN (hypertension) Start:05-Feb-2021 Instruction Type:Provider Instructions for Treatment How to Access Health Informa tion Online using Patient Portal and [employer]rd [employer] Apps Indication:HTN (hypertension) Start:05-Feb-2021 Instruction Type:Patient Education Patient Instructions Indication:BMI 21.0-21.9, adult Start:22-Jan-2021 Instruction Type:Provider Instructions for Treatment How to Access Health Informa tion Online using Patient Portal and [employer]rd [employer] Apps Indication:BMI 21.0-21.9, adult Start:22-Jan-2021 Instruction Type:Patient Education How to access health informa tion online Indication:Non-smoker Start:06-Aug-2020 Instruction Type:Patient Education How to access health informa tion online - Detail Indication:Non-smoker Start:06-Aug-2020 Instruction Type:Patient Education Patient Instructions Indication:Non-smoker Start:06-Aug-2020 Instruction Type:Provider Instructions for Treatment [facility]; [facility] Work Phone: Instructions* Name Dates Details Patient Instructions Indication:Non-smoker Start:05-Sep-2022 Instruction Type:Provider Instructions for Treatment How to Access Health Informa tion Online using Patient Portal and [employer] Apps Indication:Non-smoker Start:05-Sep-2022 Instruction Type:Patient Education Patient Instructions Indication:UTI symptoms Start:20-Jul-2022 Instruction Type:Provider Instructions for Treatment How to Access Health Informa tion Online using Patient Portal and [employer] Apps Indication:UTI symptoms Start:20-Jul-2022 Instruction Type:Patient Education Patient Instructions Indication:Non-smoker Start:23-Jun-2022 Instruction Type:Provider Instructions for Treatment How to Access Health Informa tion Online using Patient Portal and [employer] Apps Indication:Non-smoker Start:23-Jun-2022 Instruction Type:Patient Education Patient Instructions Indication:BMI 21.0-21.9, adult Start:24-Mar-2022 Instruction Type:Provider Instructions for Treatment How to Access Health Informa tion Online using Patient Portal and [employer]rd [employer] Apps Indication:BMI 21.0-21.9, adult Start:24-Mar-2022 Instruction Type:Patient Education Patient Instructions Indication:BMI 21.0-21.9, adult Start:08-Nov-2021 Instruction Type:Provider Instructions for Treatment How to Access Health Informa tion Online using Patient Portal and [employer]rd [employer] Apps Indication:BMI 21.0-21.9, adult Start:08-Nov-2021 Instruction Type:Patient Education Patient Instructions Indication:Non-smoker Start:23-Aug-2021 Instruction Type:Provider Instructions for Treatment How to Access Health Informa tion Online using Patient Portal and [employer] Apps Indication:Non-smoker Start:23-Aug-2021 Instruction Type:Patient Education Patient Instructions Indication:Urinary frequency Start:09-Mar-2021 Instruction Type:Provider Instructions for Treatment How to Access Health Informa tion Online using Patient Portal and [employer] Apps Indication:Urinary frequency Start:09-Mar-2021 Instruction Type:Patient Education Patient Instructions Indication:HTN (hypertension) Start:05-Feb-2021 Instruction Type:Provider Instructions for Treatment How to Access Health Informa tion Online using Patient Portal and [employer]rd [employer] Apps Indication:HTN (hypertension) Start:05-Feb-2021 Instruction Type:Patient Education Patient Instructions Indication:BMI 21.0-21.9, adult Start:22-Jan-2021 Instruction Type:Provider Instructions for Treatment How to Access Health Informa tion Online using Patient Portal and [employer]rd [employer] Apps Indication:BMI 21.0-21.9, adult Start:22-Jan-2021 Instruction Type:Patient Education How to access health informa tion online Indication:Non-smoker Start:06-Aug-2020 Instruction Type:Patient Education How to access health informa tion online - Detail Indication:Non-smoker Start:06-Aug-2020 Instruction Type:Patient Education Patient Instructions Indication:Non-smoker Start:06-Aug-2020 Instruction Type:Provider Instructions for Treatment [facility]; [facility] Work Phone: Instructions* Name Dates Details Patient Instructions Indication:BMI 21.0-21.9, adult Start:17-Nov-2022 Instruction Type:Provider Instructions for Treatment How to Access Health Informa tion Online using Patient Portal and [employer]rd [employer] Apps Indication:BMI 21.0-21.9, adult Start:17-Nov-2022 Instruction Type:Patient Education Patient Instructions Indication:Non-smoker Start:05-Sep-2022 Instruction Type:Provider Instructions for Treatment How to Access Health Informa tion Online using Patient Portal and [employer] Apps Indication:Non-smoker Start:05-Sep-2022 Instruction Type:Patient Education Patient Instructions Indication:UTI symptoms Start:20-Jul-2022 Instruction Type:Provider Instructions for Treatment How to Access Health Informa tion Online using Patient Portal and [employer]rd [employer] Apps Indication:UTI symptoms Start:20-Jul-2022 Instruction Type:Patient Education Patient Instructions Indication:Non-smoker Start:23-Jun-2022 Instruction Type:Provider Instructions for Treatment How to Access Health Informa tion Online using Patient Portal and [employer] Apps Indication:Non-smoker Start:23-Jun-2022 Instruction Type:Patient Education Patient Instructions Indication:BMI 21.0-21.9, adult Start:24-Mar-2022 Instruction Type:Provider Instructions for Treatment How to Access Health Informa tion Online using Patient Portal and [employer] Apps Indication:BMI 21.0-21.9, adult Start:24-Mar-2022 Instruction Type:Patient Education Patient Instructions Indication:BMI 21.0-21.9, adult Start:08-Nov-2021 Instruction Type:Provider Instructions for Treatment How to Access Health Informa tion Online using Patient Portal and [employer] Apps Indication:BMI 21.0-21.9, adult Start:08-Nov-2021 Instruction Type:Patient Education Patient Instructions Indication:Non-smoker Start:23-Aug-2021 Instruction Type:Provider Instructions for Treatment How to Access Health Informa tion Online using Patient Portal and [employer] Apps Indication:Non-smoker Start:23-Aug-2021 Instruction Type:Patient Education Patient Instructions Indication:Urinary frequency Start:09-Mar-2021 Instruction Type:Provider Instructions for Treatment How to Access Health Informa tion Online using Patient Portal and [employer] Apps Indication:Urinary frequency Start:09-Mar-2021 Instruction Type:Patient Education Patient Instructions Indication:HTN (hypertension) Start:05-Feb-2021 Instruction Type:Provider Instructions for Treatment How to Access Health Informa tion Online using Patient Portal and [employer]rd [employer] Apps Indication:HTN (hypertension) Start:05-Feb-2021 Instruction Type:Patient Education Patient Instructions Indication:BMI 21.0-21.9, adult Start:22-Jan-2021 Instruction Type:Provider Instructions for Treatment How to Access Health Informa tion Online using Patient Portal and [employer]rd [employer] Apps Indication:BMI 21.0-21.9, adult Start:22-Jan-2021 Instruction Type:Patient Education How to access health informa tion online Indication:Non-smoker Start:06-Aug-2020 Instruction Type:Patient Education How to access health informa tion online - Detail Indication:Non-smoker Start:06-Aug-2020 Instruction Type:Patient Education Patient Instructions Indication:Non-smoker Start:06-Aug-2020 Instruction Type:Provider Instructions for Treatment [facility]; [facility] Work Phone: Instructions* Name Dates Details Patient Instructions Indication:BMI 21.0-21.9, adult Start:01-Dec-2022 Instruction Type:Provider Instructions for Treatment How to Access Health Informa tion Online using Patient Portal and 3rd [employer] Apps Indication:BMI 21.0-21.9, adult Start:01-Dec-2022 Instruction Type:Patient Education Patient Instructions Indication:BMI 21.0-21.9, adult Start:17-Nov-2022 Instruction Type:Provider Instructions for Treatment How to Access Health Informa tion Online using Patient Portal and [employer] Apps Indication:BMI 21.0-21.9, adult Start:17-Nov-2022 Instruction Type:Patient Education Patient Instructions Indication:Non-smoker Start:05-Sep-2022 Instruction Type:Provider Instructions for Treatment How to Access Health Informa tion Online using Patient Portal and [employer] Apps Indication:Non-smoker Start:05-Sep-2022 Instruction Type:Patient Education Patient Instructions Indication:UTI symptoms Start:20-Jul-2022 Instruction Type:Provider Instructions for Treatment How to Access Health Informa tion Online using Patient Portal and [employer] Apps Indication:UTI symptoms Start:20-Jul-2022 Instruction Type:Patient Education Patient Instructions Indication:Non-smoker Start:23-Jun-2022 Instruction Type:Provider Instructions for Treatment How to Access Health Informa tion Online using Patient Portal and [employer] Apps Indication:Non-smoker Start:23-Jun-2022 Instruction Type:Patient Education Patient Instructions Indication:BMI 21.0-21.9, adult Start:24-Mar-2022 Instruction Type:Provider Instructions for Treatment How to Access Health Informa tion Online using Patient Portal and [employer] Apps Indication:BMI 21.0-21.9, adult Start:24-Mar-2022 Instruction Type:Patient Education Patient Instructions Indication:BMI 21.0-21.9, adult Start:08-Nov-2021 Instruction Type:Provider Instructions for Treatment How to Access Health Informa tion Online using Patient Portal and [employer] Apps Indication:BMI 21.0-21.9, adult Start:08-Nov-2021 Instruction Type:Patient Education Patient Instructions Indication:Non-smoker Start:23-Aug-2021 Instruction Type:Provider Instructions for Treatment How to Access Health Informa tion Online using Patient Portal and [employer] Apps Indication:Non-smoker Start:23-Aug-2021 Instruction Type:Patient Education Patient Instructions Indication:Urinary frequency Start:09-Mar-2021 Instruction Type:Provider Instructions for Treatment How to Access Health Informa tion Online using Patient Portal and [employer] Apps Indication:Urinary frequency Start:09-Mar-2021 Instruction Type:Patient Education Patient Instructions Indication:HTN (hypertension) Start:05-Feb-2021 Instruction Type:Provider Instructions for Treatment How to Access Health Informa tion Online using Patient Portal and [employer]rd [employer] Apps Indication:HTN (hypertension) Start:05-Feb-2021 Instruction Type:Patient Education Patient Instructions Indication:BMI 21.0-21.9, adult Start:22-Jan-2021 Instruction Type:Provider Instructions for Treatment How to Access Health Informa tion Online using Patient Portal and [employer] Apps Indication:BMI 21.0-21.9, adult Start:22-Jan-2021 Instruction Type:Patient Education How to access health informa tion online Indication:Non-smoker Start:06-Aug-2020 Instruction Type:Patient Education How to access health informa tion online - Detail Indication:Non-smoker Start:06-Aug-2020 Instruction Type:Patient Education Patient Instructions Indication:Non-smoker Start:06-Aug-2020 Instruction Type:Provider Instructions for Treatment [facility]; [facility] Work Phone: Instructions* Name Dates Details Patient Instructions Indication:BMI 21.0-21.9, adult Start:01-Dec-2022 Instruction Type:Provider Instructions for Treatment How to Access Health Informa tion Online using Patient Portal and [employer] Apps Indication:BMI 21.0-21.9, adult Start:01-Dec-2022 Instruction Type:Patient Education Patient Instructions Indication:BMI 21.0-21.9, adult Start:17-Nov-2022 Instruction Type:Provider Instructions for Treatment How to Access Health Informa tion Online using Patient Portal and [employer] Apps Indication:BMI 21.0-21.9, adult Start:17-Nov-2022 Instruction Type:Patient Education Patient Instructions Indication:Non-smoker Start:05-Sep-2022 Instruction Type:Provider Instructions for Treatment How to Access Health Informa tion Online using Patient Portal and [employer] Apps Indication:Non-smoker Start:05-Sep-2022 Instruction Type:Patient Education Patient Instructions Indication:UTI symptoms Start:20-Jul-2022 Instruction Type:Provider Instructions for Treatment How to Access Health Informa tion Online using Patient Portal and [employer] Apps Indication:UTI symptoms Start:20-Jul-2022 Instruction Type:Patient Education Patient Instructions Indication:Non-smoker Start:23-Jun-2022 Instruction Type:Provider Instructions for Treatment How to Access Health Informa tion Online using Patient Portal and [employer] Apps Indication:Non-smoker Start:23-Jun-2022 Instruction Type:Patient Education Patient Instructions Indication:BMI 21.0-21.9, adult Start:24-Mar-2022 Instruction Type:Provider Instructions for Treatment How to Access Health Informa tion Online using Patient Portal and [employer] Apps Indication:BMI 21.0-21.9, adult Start:24-Mar-2022 Instruction Type:Patient Education Patient Instructions Indication:BMI 21.0-21.9, adult Start:08-Nov-2021 Instruction Type:Provider Instructions for Treatment How to Access Health Informa tion Online using Patient Portal and [employer] Apps Indication:BMI 21.0-21.9, adult Start:08-Nov-2021 Instruction Type:Patient Education Patient Instructions Indication:Non-smoker Start:23-Aug-2021 Instruction Type:Provider Instructions for Treatment How to Access Health Informa tion Online using Patient Portal and [employer] Apps Indication:Non-smoker Start:23-Aug-2021 Instruction Type:Patient Education Patient Instructions Indication:Urinary frequency Start:09-Mar-2021 Instruction Type:Provider Instructions for Treatment How to Access Health Informa tion Online using Patient Portal and [employer] Apps Indication:Urinary frequency Start:09-Mar-2021 Instruction Type:Patient Education Patient Instructions Indication:HTN (hypertension) Start:05-Feb-2021 Instruction Type:Provider Instructions for Treatment How to Access Health Informa tion Online using Patient Portal and [employer] Apps Indication:HTN (hypertension) Start:05-Feb-2021 Instruction Type:Patient Education Patient Instructions Indication:BMI 21.0-21.9, adult Start:22-Jan-2021 Instruction Type:Provider Instructions for Treatment How to Access Health Informa tion Online using Patient Portal and [employer] Apps Indication:BMI 21.0-21.9, adult Start:22-Jan-2021 Instruction Type:Patient Education How to access health informa tion online Indication:Non-smoker Start:06-Aug-2020 Instruction Type:Patient Education How to access health informa tion online - Detail Indication:Non-smoker Start:06-Aug-2020 Instruction Type:Patient Education Patient Instructions Indication:Non-smoker Start:06-Aug-2020 Instruction Type:Provider Instructions for Treatment [facility]; [facility] Work Phone: Instructions* Name Dates Details Patient Instructions Indication:BMI 21.0-21.9, adult Start:01-Dec-2022 Instruction Type:Provider Instructions for Treatment How to Access Health Informa tion Online using Patient Portal and [employer] Apps Indication:BMI 21.0-21.9, adult Start:01-Dec-2022 Instruction Type:Patient Education Patient Instructions Indication:BMI 21.0-21.9, adult Start:17-Nov-2022 Instruction Type:Provider Instructions for Treatment How to Access Health Informa tion Online using Patient Portal and [employer] Apps Indication:BMI 21.0-21.9, adult Start:17-Nov-2022 Instruction Type:Patient Education Patient Instructions Indication:Non-smoker Start:05-Sep-2022 Instruction Type:Provider Instructions for Treatment How to Access Health Informa tion Online using Patient Portal and [employer] Apps Indication:Non-smoker Start:05-Sep-2022 Instruction Type:Patient Education Patient Instructions Indication:UTI symptoms Start:20-Jul-2022 Instruction Type:Provider Instructions for Treatment How to Access Health Informa tion Online using Patient Portal and [employer] Apps Indication:UTI symptoms Start:20-Jul-2022 Instruction Type:Patient Education Patient Instructions Indication:Non-smoker Start:23-Jun-2022 Instruction Type:Provider Instructions for Treatment How to Access Health Informa tion Online using Patient Portal and [employer] Apps Indication:Non-smoker Start:23-Jun-2022 Instruction Type:Patient Education Patient Instructions Indication:BMI 21.0-21.9, adult Start:24-Mar-2022 Instruction Type:Provider Instructions for Treatment How to Access Health Informa tion Online using Patient Portal and [employer] Apps Indication:BMI 21.0-21.9, adult Start:24-Mar-2022 Instruction Type:Patient Education Patient Instructions Indication:BMI 21.0-21.9, adult Start:08-Nov-2021 Instruction Type:Provider Instructions for Treatment How to Access Health Informa tion Online using Patient Portal and [employer] Apps Indication:BMI 21.0-21.9, adult Start:08-Nov-2021 Instruction Type:Patient Education Patient Instructions Indication:Non-smoker Start:23-Aug-2021 Instruction Type:Provider Instructions for Treatment How to Access Health Informa tion Online using Patient Portal and [employer] Apps Indication:Non-smoker Start:23-Aug-2021 Instruction Type:Patient Education Patient Instructions Indication:Urinary frequency Start:09-Mar-2021 Instruction Type:Provider Instructions for Treatment How to Access Health Informa tion Online using Patient Portal and [employer] Apps Indication:Urinary frequency Start:09-Mar-2021 Instruction Type:Patient Education Patient Instructions Indication:HTN (hypertension) Start:05-Feb-2021 Instruction Type:Provider Instructions for Treatment How to Access Health Informa tion Online using Patient Portal and [employer] Apps Indication:HTN (hypertension) Start:05-Feb-2021 Instruction Type:Patient Education Patient Instructions Indication:BMI 21.0-21.9, adult Start:22-Jan-2021 Instruction Type:Provider Instructions for Treatment How to Access Health Informa tion Online using Patient Portal and [employer] Apps Indication:BMI 21.0-21.9, adult Start:22-Jan-2021 Instruction Type:Patient Education How to access health informa tion online Indication:Non-smoker Start:06-Aug-2020 Instruction Type:Patient Education How to access health informa tion online - Detail Indication:Non-smoker Start:06-Aug-2020 Instruction Type:Patient Education Patient Instructions Indication:Non-smoker Start:06-Aug-2020 Instruction Type:Provider Instructions for Treatment [facility]; [facility] Work Phone: Instructions* Name Dates Details Patient Instructions Indication:BMI 21.0-21.9, adult Start:01-Dec-2022 Instruction Type:Provider Instructions for Treatment How to Access Health Informa tion Online using Patient Portal and [employer] Apps Indication:BMI 21.0-21.9, adult Start:01-Dec-2022 Instruction Type:Patient Education Patient Instructions Indication:BMI 21.0-21.9, adult Start:17-Nov-2022 Instruction Type:Provider Instructions for Treatment How to Access Health Informa tion Online using Patient Portal and [employer] Apps Indication:BMI 21.0-21.9, adult Start:17-Nov-2022 Instruction Type:Patient Education Patient Instructions Indication:Non-smoker Start:05-Sep-2022 Instruction Type:Provider Instructions for Treatment How to Access Health Informa tion Online using Patient Portal and [employer] Apps Indication:Non-smoker Start:05-Sep-2022 Instruction Type:Patient Education Patient Instructions Indication:UTI symptoms Start:20-Jul-2022 Instruction Type:Provider Instructions for Treatment How to Access Health Informa tion Online using Patient Portal and [employer] Apps Indication:UTI symptoms Start:20-Jul-2022 Instruction Type:Patient Education Patient Instructions Indication:Non-smoker Start:23-Jun-2022 Instruction Type:Provider Instructions for Treatment How to Access Health Informa tion Online using Patient Portal and [employer] Apps Indication:Non-smoker Start:23-Jun-2022 Instruction Type:Patient Education Patient Instructions Indication:BMI 21.0-21.9, adult Start:24-Mar-2022 Instruction Type:Provider Instructions for Treatment How to Access Health Informa tion Online using Patient Portal and [employer] Apps Indication:BMI 21.0-21.9, adult Start:24-Mar-2022 Instruction Type:Patient Education Patient Instructions Indication:BMI 21.0-21.9, adult Start:08-Nov-2021 Instruction Type:Provider Instructions for Treatment How to Access Health Informa tion Online using Patient Portal and [employer] Apps Indication:BMI 21.0-21.9, adult Start:08-Nov-2021 Instruction Type:Patient Education Patient Instructions Indication:Non-smoker Start:23-Aug-2021 Instruction Type:Provider Instructions for Treatment How to Access Health Informa tion Online using Patient Portal and [employer] Apps Indication:Non-smoker Start:23-Aug-2021 Instruction Type:Patient Education Patient Instructions Indication:Urinary frequency Start:09-Mar-2021 Instruction Type:Provider Instructions for Treatment How to Access Health Informa tion Online using Patient Portal and [employer] Apps Indication:Urinary frequency Start:09-Mar-2021 Instruction Type:Patient Education Patient Instructions Indication:HTN (hypertension) Start:05-Feb-2021 Instruction Type:Provider Instructions for Treatment How to Access Health Informa tion Online using Patient Portal and [employer] Apps Indication:HTN (hypertension) Start:05-Feb-2021 Instruction Type:Patient Education Patient Instructions Indication:BMI 21.0-21.9, adult Start:22-Jan-2021 Instruction Type:Provider Instructions for Treatment How to Access Health Informa tion Online using Patient Portal and [employer] Apps Indication:BMI 21.0-21.9, adult Start:22-Jan-2021 Instruction Type:Patient Education How to access health informa tion online Indication:Non-smoker Start:06-Aug-2020 Instruction Type:Patient Education How to access health informa tion online - Detail Indication:Non-smoker Start:06-Aug-2020 Instruction Type:Patient Education Patient Instructions Indication:Non-smoker Start:06-Aug-2020 Instruction Type:Provider Instructions for Treatment [facility]; [facility] Work Phone: Instructions* Name Dates Details Patient Instructions Indication:Non-smoker Start:22-Dec-2022 Instruction Type:Provider Instructions for Treatment How to Access Health Informa tion Online using Patient Portal and [employer] Indication:Non-smoker Start:22-Dec-2022 Instruction Type:Patient Education Patient Instructions Indication:BMI 21.0-21.9, adult Start:01-Dec-2022 Instruction Type:Provider Instructions for Treatment How to Access Health Informa tion Online using Patient Portal and [employer] Indication:BMI 21.0-21.9, adult Start:01-Dec-2022 Instruction Type:Patient Education Patient Instructions Indication:BMI 21.0-21.9, adult Start:17-Nov-2022 Instruction Type:Provider Instructions for Treatment How to Access Health Informa tion Online using Patient Portal and [employer] Indication:BMI 21.0-21.9, adult Start:17-Nov-2022 Instruction Type:Patient Education Patient Instructions Indication:Non-smoker Start:05-Sep-2022 Instruction Type:Provider Instructions for Treatment How to Access Health Informa tion Online using Patient Portal and [employer] Apps Indication:Non-smoker Start:05-Sep-2022 Instruction Type:Patient Education Patient Instructions Indication:UTI symptoms Start:20-Jul-2022 Instruction Type:Provider Instructions for Treatment How to Access Health Informa tion Online using Patient Portal and [employer] Apps Indication:UTI symptoms Start:20-Jul-2022 Instruction Type:Patient Education Patient Instructions Indication:Non-smoker Start:23-Jun-2022 Instruction Type:Provider Instructions for Treatment How to Access Health Informa tion Online using Patient Portal and [employer] Apps Indication:Non-smoker Start:23-Jun-2022 Instruction Type:Patient Education Patient Instructions Indication:BMI 21.0-21.9, adult Start:24-Mar-2022 Instruction Type:Provider Instructions for Treatment How to Access Health Informa tion Online using Patient Portal and [employer] Apps Indication:BMI 21.0-21.9, adult Start:24-Mar-2022 Instruction Type:Patient Education Patient Instructions Indication:BMI 21.0-21.9, adult Start:08-Nov-2021 Instruction Type:Provider Instructions for Treatment How to Access Health Informa tion Online using Patient Portal and [employer] Apps Indication:BMI 21.0-21.9, adult Start:08-Nov-2021 Instruction Type:Patient Education Patient Instructions Indication:Non-smoker Start:23-Aug-2021 Instruction Type:Provider Instructions for Treatment How to Access Health Informa tion Online using Patient Portal and [employer] Apps Indication:Non-smoker Start:23-Aug-2021 Instruction Type:Patient Education Patient Instructions Indication:Urinary frequency Start:09-Mar-2021 Instruction Type:Provider Instructions for Treatment How to Access Health Informa tion Online using Patient Portal and [employer] Apps Indication:Urinary frequency Start:09-Mar-2021 Instruction Type:Patient Education Patient Instructions Indication:HTN (hypertension) Start:05-Feb-2021 Instruction Type:Provider Instructions for Treatment How to Access Health Informa tion Online using Patient Portal and [employer] Apps Indication:HTN (hypertension) Start:05-Feb-2021 Instruction Type:Patient Education Patient Instructions Indication:BMI 21.0-21.9, adult Start:22-Jan-2021 Instruction Type:Provider Instructions for Treatment How to Access Health Informa tion Online using Patient Portal and [employer] Apps Indication:BMI 21.0-21.9, adult Start:22-Jan-2021 Instruction Type:Patient Education How to access health informa tion online Indication:Non-smoker Start:06-Aug-2020 Instruction Type:Patient Education How to access health informa tion online - Detail Indication:Non-smoker Start:06-Aug-2020 Instruction Type:Patient Education Patient Instructions Indication:Non-smoker Start:06-Aug-2020 Instruction Type:Provider Instructions for Treatment [facility]; [facility] Work Phone: Instructions* Name Dates Details Patient Instructions Indication:Non-smoker Start:22-Dec-2022 Instruction Type:Provider Instructions for Treatment How to Access Health Informa tion Online using Patient Portal and [employer] Apps Indication:Non-smoker Start:22-Dec-2022 Instruction Type:Patient Education Patient Instructions Indication:BMI 21.0-21.9, adult Start:01-Dec-2022 Instruction Type:Provider Instructions for Treatment How to Access Health Informa tion Online using Patient Portal and [employer] Apps Indication:BMI 21.0-21.9, adult Start:01-Dec-2022 Instruction Type:Patient Education Patient Instructions Indication:BMI 21.0-21.9, adult Start:17-Nov-2022 Instruction Type:Provider Instructions for Treatment How to Access Health Informa tion Online using Patient Portal and [employer] Apps Indication:BMI 21.0-21.9, adult Start:17-Nov-2022 Instruction Type:Patient Education Patient Instructions Indication:Non-smoker Start:05-Sep-2022 Instruction Type:Provider Instructions for Treatment How to Access Health Informa tion Online using Patient Portal and [employer] Apps Indication:Non-smoker Start:05-Sep-2022 Instruction Type:Patient Education Patient Instructions Indication:UTI symptoms Start:20-Jul-2022 Instruction Type:Provider Instructions for Treatment How to Access Health Informa tion Online using Patient Portal and [employer] Apps Indication:UTI symptoms Start:20-Jul-2022 Instruction Type:Patient Education Patient Instructions Indication:Non-smoker Start:23-Jun-2022 Instruction Type:Provider Instructions for Treatment How to Access Health Informa tion Online using Patient Portal and [employer] Apps Indication:Non-smoker Start:23-Jun-2022 Instruction Type:Patient Education Patient Instructions Indication:BMI 21.0-21.9, adult Start:24-Mar-2022 Instruction Type:Provider Instructions for Treatment How to Access Health Informa tion Online using Patient Portal and [employer] Apps Indication:BMI 21.0-21.9, adult Start:24-Mar-2022 Instruction Type:Patient Education Patient Instructions Indication:BMI 21.0-21.9, adult Start:08-Nov-2021 Instruction Type:Provider Instructions for Treatment How to Access Health Informa tion Online using Patient Portal and [employer] Apps Indication:BMI 21.0-21.9, adult Start:08-Nov-2021 Instruction Type:Patient Education Patient Instructions Indication:Non-smoker Start:23-Aug-2021 Instruction Type:Provider Instructions for Treatment How to Access Health Informa tion Online using Patient Portal and [employer] Apps Indication:Non-smoker Start:23-Aug-2021 Instruction Type:Patient Education Patient Instructions Indication:Urinary frequency Start:09-Mar-2021 Instruction Type:Provider Instructions for Treatment How to Access Health Informa tion Online using Patient Portal and [employer] Apps Indication:Urinary frequency Start:09-Mar-2021 Instruction Type:Patient Education Patient Instructions Indication:HTN (hypertension) Start:05-Feb-2021 Instruction Type:Provider Instructions for Treatment How to Access Health Informa tion Online using Patient Portal and [employer] Apps Indication:HTN (hypertension) Start:05-Feb-2021 Instruction Type:Patient Education Patient Instructions Indication:BMI 21.0-21.9, adult Start:22-Jan-2021 Instruction Type:Provider Instructions for Treatment How to Access Health Informa tion Online using Patient Portal and [employer] Apps Indication:BMI 21.0-21.9, adult Start:22-Jan-2021 Instruction Type:Patient Education How to access health informa tion online Indication:Non-smoker Start:06-Aug-2020 Instruction Type:Patient Education How to access health informa tion online - Detail Indication:Non-smoker Start:06-Aug-2020 Instruction Type:Patient Education Patient Instructions Indication:Non-smoker Start:06-Aug-2020 Instruction Type:Provider Instructions for Treatment [facility]; [facility] Work Phone: Instructions* Name Dates Details Patient Instructions Indication:Non-smoker Start:22-Dec-2022 Instruction Type:Provider Instructions for Treatment How to Access Health Informa tion Online using Patient Portal and [employer] Apps Indication:Non-smoker Start:22-Dec-2022 Instruction Type:Patient Education Patient Instructions Indication:BMI 21.0-21.9, adult Start:01-Dec-2022 Instruction Type:Provider Instructions for Treatment How to Access Health Informa tion Online using Patient Portal and [employer] Apps Indication:BMI 21.0-21.9, adult Start:01-Dec-2022 Instruction Type:Patient Education Patient Instructions Indication:BMI 21.0-21.9, adult Start:17-Nov-2022 Instruction Type:Provider Instructions for Treatment How to Access Health Informa tion Online using Patient [employer] and [employer] Indication:BMI 21.0-21.9, adult Start:17-Nov-2022 Instruction Type:Patient Education Patient Instructions Indication:Non-smoker Start:05-Sep-2022 Instruction Type:Provider Instructions for Treatment How to Access Health Informa tion Online using Patient Portal and [employer] Indication:Non-smoker Start:05-Sep-2022 Instruction Type:Patient Education Patient Instructions Indication:UTI symptoms Start:20-Jul-2022 Instruction Type:Provider Instructions for Treatment How to Access Health Informa tion Online using Patient Portal and [employer] Indication:UTI symptoms Start:20-Jul-2022 Instruction Type:Patient Education Patient Instructions Indication:Non-smoker Start:23-Jun-2022 Instruction Type:Provider Instructions for Treatment How to Access Health Informa tion Online using Patient Portal and [employer] Indication:Non-smoker Start:23-Jun-2022 Instruction Type:Patient Education Patient Instructions Indication:BMI 21.0-21.9, adult Start:24-Mar-2022 Instruction Type:Provider Instructions for Treatment How to Access Health Informa tion Online using Patient Portal and [employer] Indication:BMI 21.0-21.9, adult Start:24-Mar-2022 Instruction Type:Patient Education Patient Instructions Indication:BMI 21.0-21.9, adult Start:08-Nov-2021 Instruction Type:Provider Instructions for Treatment How to Access Health Informa tion Online using Patient Portal and [employer] Indication:BMI 21.0-21.9, adult Start:08-Nov-2021 Instruction Type:Patient Education Patient Instructions Indication:Non-smoker Start:23-Aug-2021 Instruction Type:Provider Instructions for Treatment How to Access Health Informa tion Online using Patient Portal and [employer] Indication:Non-smoker Start:23-Aug-2021 Instruction Type:Patient Education Patient Instructions Indication:Urinary frequency Start:09-Mar-2021 Instruction Type:Provider Instructions for Treatment How to Access Health Informa tion Online using Patient Portal and [employer] Indication:Urinary frequency Start:09-Mar-2021 Instruction Type:Patient Education Patient Instructions Indication:HTN (hypertension) Start:05-Feb-2021 Instruction Type:Provider Instructions for Treatment How to Access Health Informa tion Online using Patient Portal and [employer] Apps Indication:HTN (hypertension) Start:05-Feb-2021 Instruction Type:Patient Education Patient Instructions Indication:BMI 21.0-21.9, adult Start:22-Jan-2021 Instruction Type:Provider Instructions for Treatment How to Access Health Informa tion Online using Patient Portal and [employer] Apps Indication:BMI 21.0-21.9, adult Start:22-Jan-2021 Instruction Type:Patient Education How to access health informa tion online Indication:Non-smoker Start:06-Aug-2020 Instruction Type:Patient Education How to access health informa tion online - Detail Indication:Non-smoker Start:06-Aug-2020 Instruction Type:Patient Education Patient Instructions Indication:Non-smoker Start:06-Aug-2020 Instruction Type:Provider Instructions for Treatment [facility]; [facility] Work Phone: Instructions* Name Dates Details Patient Instructions Indication:Non-smoker Start:22-Dec-2022 Instruction Type:Provider Instructions for Treatment How to Access Health Informa tion Online using Patient Portal and [employer] Apps Indication:Non-smoker Start:22-Dec-2022 Instruction Type:Patient Education Patient Instructions Indication:BMI 21.0-21.9, adult Start:01-Dec-2022 Instruction Type:Provider Instructions for Treatment How to Access Health Informa tion Online using Patient Portal and [employer] Indication:BMI 21.0-21.9, adult Start:01-Dec-2022 Instruction Type:Patient Education Patient Instructions Indication:BMI 21.0-21.9, adult Start:17-Nov-2022 Instruction Type:Provider Instructions for Treatment How to Access Health Informa tion Online using Patient Portal and [employer] Apps Indication:BMI 21.0-21.9, adult Start:17-Nov-2022 Instruction Type:Patient Education Patient Instructions Indication:Non-smoker Start:05-Sep-2022 Instruction Type:Provider Instructions for Treatment How to Access Health Informa tion Online using Patient Portal and [employer] Apps Indication:Non-smoker Start:05-Sep-2022 Instruction Type:Patient Education Patient Instructions Indication:UTI symptoms Start:20-Jul-2022 Instruction Type:Provider Instructions for Treatment How to Access Health Informa tion Online using Patient Portal and [employer] Apps Indication:UTI symptoms Start:20-Jul-2022 Instruction Type:Patient Education Patient Instructions Indication:Non-smoker Start:23-Jun-2022 Instruction Type:Provider Instructions for Treatment How to Access Health Informa tion Online using Patient Portal and [employer] Apps Indication:Non-smoker Start:23-Jun-2022 Instruction Type:Patient Education Patient Instructions Indication:BMI 21.0-21.9, adult Start:24-Mar-2022 Instruction Type:Provider Instructions for Treatment How to Access Health Informa tion Online using Patient Portal and [employer] Apps Indication:BMI 21.0-21.9, adult Start:24-Mar-2022 Instruction Type:Patient Education Patient Instructions Indication:BMI 21.0-21.9, adult Start:08-Nov-2021 Instruction Type:Provider Instructions for Treatment How to Access Health Informa tion Online using Patient Portal and [employer] Apps Indication:BMI 21.0-21.9, adult Start:08-Nov-2021 Instruction Type:Patient Education Patient Instructions Indication:Non-smoker Start:23-Aug-2021 Instruction Type:Provider Instructions for Treatment How to Access Health Informa tion Online using Patient Portal and [employer] Apps Indication:Non-smoker Start:23-Aug-2021 Instruction Type:Patient Education Patient Instructions Indication:Urinary frequency Start:09-Mar-2021 Instruction Type:Provider Instructions for Treatment How to Access Health Informa tion Online using Patient Portal and [employer] Apps Indication:Urinary frequency Start:09-Mar-2021 Instruction Type:Patient Education Patient Instructions Indication:HTN (hypertension) Start:05-Feb-2021 Instruction Type:Provider Instructions for Treatment How to Access Health Informa tion Online using Patient Portal and [employer] Apps Indication:HTN (hypertension) Start:05-Feb-2021 Instruction Type:Patient Education Patient Instructions Indication:BMI 21.0-21.9, adult Start:22-Jan-2021 Instruction Type:Provider Instructions for Treatment How to Access Health Informa tion Online using Patient Portal and [employer] Apps Indication:BMI 21.0-21.9, adult Start:22-Jan-2021 Instruction Type:Patient Education How to access health informa tion online Indication:Non-smoker Start:06-Aug-2020 Instruction Type:Patient Education How to access health informa tion online - Detail Indication:Non-smoker Start:06-Aug-2020 Instruction Type:Patient Education Patient Instructions Indication:Non-smoker Start:06-Aug-2020 Instruction Type:Provider Instructions for Treatment [facility]; [facility] Work Phone: Instructions* Name Dates Details Patient Instructions Indication:Non-smoker Start:22-Dec-2022 Instruction Type:Provider Instructions for Treatment How to Access Health Informa tion Online using Patient Portal and [employer] Apps Indication:Non-smoker Start:22-Dec-2022 Instruction Type:Patient Education Patient Instructions Indication:BMI 21.0-21.9, adult Start:01-Dec-2022 Instruction Type:Provider Instructions for Treatment How to Access Health Informa tion Online using Patient Portal and [employer] Apps Indication:BMI 21.0-21.9, adult Start:01-Dec-2022 Instruction Type:Patient Education Patient Instructions Indication:BMI 21.0-21.9, adult Start:17-Nov-2022 Instruction Type:Provider Instructions for Treatment How to Access Health Informa tion Online using Patient Portal and [employer] Apps Indication:BMI 21.0-21.9, adult Start:17-Nov-2022 Instruction Type:Patient Education Patient Instructions Indication:Non-smoker Start:05-Sep-2022 Instruction Type:Provider Instructions for Treatment How to Access Health Informa tion Online using Patient Portal and [employer] Apps Indication:Non-smoker Start:05-Sep-2022 Instruction Type:Patient Education Patient Instructions Indication:UTI symptoms Start:20-Jul-2022 Instruction Type:Provider Instructions for Treatment How to Access Health Informa tion Online using Patient Portal and [employer] Apps Indication:UTI symptoms Start:20-Jul-2022 Instruction Type:Patient Education Patient Instructions Indication:Non-smoker Start:23-Jun-2022 Instruction Type:Provider Instructions for Treatment How to Access Health Informa tion Online using Patient Portal and [employer] Apps Indication:Non-smoker Start:23-Jun-2022 Instruction Type:Patient Education Patient Instructions Indication:BMI 21.0-21.9, adult Start:24-Mar-2022 Instruction Type:Provider Instructions for Treatment How to Access Health Informa tion Online using Patient Portal and [employer] Apps Indication:BMI 21.0-21.9, adult Start:24-Mar-2022 Instruction Type:Patient Education Patient Instructions Indication:BMI 21.0-21.9, adult Start:08-Nov-2021 Instruction Type:Provider Instructions for Treatment How to Access Health Informa tion Online using Patient Portal and [employer] Apps Indication:BMI 21.0-21.9, adult Start:08-Nov-2021 Instruction Type:Patient Education Patient Instructions Indication:Non-smoker Start:23-Aug-2021 Instruction Type:Provider Instructions for Treatment How to Access Health Informa tion Online using Patient Portal and [employer] Apps Indication:Non-smoker Start:23-Aug-2021 Instruction Type:Patient Education Patient Instructions Indication:Urinary frequency Start:09-Mar-2021 Instruction Type:Provider Instructions for Treatment How to Access Health Informa tion Online using Patient Portal and [employer] Apps Indication:Urinary frequency Start:09-Mar-2021 Instruction Type:Patient Education Patient Instructions Indication:HTN (hypertension) Start:05-Feb-2021 Instruction Type:Provider Instructions for Treatment How to Access Health Informa tion Online using Patient Portal and [employer] Indication:HTN (hypertension) Start:05-Feb-2021 Instruction Type:Patient Education Patient Instructions Indication:BMI 21.0-21.9, adult Start:22-Jan-2021 Instruction Type:Provider Instructions for Treatment How to Access Health Informa tion Online using Patient Portal and [employer] Indication:BMI 21.0-21.9, adult Start:22-Jan-2021 Instruction Type:Patient Education How to access health informa tion online Indication:Non-smoker Start:06-Aug-2020 Instruction Type:Patient Education How to access health informa tion online - Detail Indication:Non-smoker Start:06-Aug-2020 Instruction Type:Patient Education Patient Instructions Indication:Non-smoker Start:06-Aug-2020 Instruction Type:Provider Instructions for Treatment [facility]; [facility] Work Phone: Instructions* Name Dates Details Patient Instructions Indication:Non-smoker Start:13-Mar-2023 Instruction Type:Provider Instructions for Treatment How to Access Health Informa tion Online using Patient Portal and [employer] Indication:Non-smoker Start:13-Mar-2023 Instruction Type:Patient Education Patient Instructions Indication:Non-smoker Start:22-Dec-2022 Instruction Type:Provider Instructions for Treatment How to Access Health Informa tion Online using Patient Portal and [employer] Indication:Non-smoker Start:22-Dec-2022 Instruction Type:Patient Education Patient Instructions Indication:BMI 21.0-21.9, adult Start:01-Dec-2022 Instruction Type:Provider Instructions for Treatment How to Access Health Informa tion Online using Patient Portal and [employer] Indication:BMI 21.0-21.9, adult Start:01-Dec-2022 Instruction Type:Patient Education Patient Instructions Indication:BMI 21.0-21.9, adult Start:17-Nov-2022 Instruction Type:Provider Instructions for Treatment How to Access Health Informa tion Online using Patient Portal and [employer] Indication:BMI 21.0-21.9, adult Start:17-Nov-2022 Instruction Type:Patient Education Patient Instructions Indication:Non-smoker Start:05-Sep-2022 Instruction Type:Provider Instructions for Treatment How to Access Health Informa tion Online using Patient Portal and [employer] Indication:Non-smoker Start:05-Sep-2022 Instruction Type:Patient Education Patient Instructions Indication:UTI symptoms Start:20-Jul-2022 Instruction Type:Provider Instructions for Treatment How to Access Health Informa tion Online using Patient Portal and [employer] Indication:UTI symptoms Start:20-Jul-2022 Instruction Type:Patient Education Patient Instructions Indication:Non-smoker Start:23-Jun-2022 Instruction Type:Provider Instructions for Treatment How to Access Health Informa tion Online using Patient Portal and [employer] Apps Indication:Non-smoker Start:23-Jun-2022 Instruction Type:Patient Education Patient Instructions Indication:BMI 21.0-21.9, adult Start:24-Mar-2022 Instruction Type:Provider Instructions for Treatment How to Access Health Informa tion Online using Patient Portal and [employer] Indication:BMI 21.0-21.9, adult Start:24-Mar-2022 Instruction Type:Patient Education Patient Instructions Indication:BMI 21.0-21.9, adult Start:08-Nov-2021 Instruction Type:Provider Instructions for Treatment How to Access Health Informa tion Online using Patient Portal and [employer] Indication:BMI 21.0-21.9, adult Start:08-Nov-2021 Instruction Type:Patient Education Patient Instructions Indication:Non-smoker Start:23-Aug-2021 Instruction Type:Provider Instructions for Treatment How to Access Health Informa tion Online using Patient Portal and [employer] Indication:Non-smoker Start:23-Aug-2021 Instruction Type:Patient Education Patient Instructions Indication:Urinary frequency Start:09-Mar-2021 Instruction Type:Provider Instructions for Treatment How to Access Health Informa tion Online using Patient Portal and [employer] Apps Indication:Urinary frequency Start:09-Mar-2021 Instruction Type:Patient Education Patient Instructions Indication:HTN (hypertension) Start:05-Feb-2021 Instruction Type:Provider Instructions for Treatment How to Access Health Informa tion Online using Patient Portal and [employer] Apps Indication:HTN (hypertension) Start:05-Feb-2021 Instruction Type:Patient Education Patient Instructions Indication:BMI 21.0-21.9, adult Start:22-Jan-2021 Instruction Type:Provider Instructions for Treatment How to Access Health Informa tion Online using Patient Portal and [employer] Indication:BMI 21.0-21.9, adult Start:22-Jan-2021 Instruction Type:Patient Education How to access health informa tion online Indication:Non-smoker Start:06-Aug-2020 Instruction Type:Patient Education How to access health informa tion online - Detail Indication:Non-smoker Start:06-Aug-2020 Instruction Type:Patient Education Patient Instructions Indication:Non-smoker Start:06-Aug-2020 Instruction Type:Provider Instructions for Treatment [facility]; [facility] Work Phone: Instructions* Name Dates Details Patient Instructions Indication:Non-smoker Start:13-Mar-2023 Instruction Type:Provider Instructions for Treatment How to Access Health Informa tion Online using Patient Portal and [employer] Indication:Non-smoker Start:13-Mar-2023 Instruction Type:Patient Education Patient Instructions Indication:Non-smoker Start:22-Dec-2022 Instruction Type:Provider Instructions for Treatment How to Access Health Informa tion Online using Patient Portal and [employer] Indication:Non-smoker Start:22-Dec-2022 Instruction Type:Patient Education Patient Instructions Indication:BMI 21.0-21.9, adult Start:01-Dec-2022 Instruction Type:Provider Instructions for Treatment How to Access Health Informa tion Online using Patient Portal and [employer]rd [employer] Apps Indication:BMI 21.0-21.9, adult Start:01-Dec-2022 Instruction Type:Patient Education Patient Instructions Indication:BMI 21.0-21.9, adult Start:17-Nov-2022 Instruction Type:Provider Instructions for Treatment How to Access Health Informa tion Online using Patient Portal and 3rd [employer] Apps Indication:BMI 21.0-21.9, adult Start:17-Nov-2022 Instruction Type:Patient Education Patient Instructions Indication:Non-smoker Start:05-Sep-2022 Instruction Type:Provider Instructions for Treatment How to Access Health Informa tion Online using Patient Portal and [employer]rd [employer] Apps Indication:Non-smoker Start:05-Sep-2022 Instruction Type:Patient Education Patient Instructions Indication:UTI symptoms Start:20-Jul-2022 Instruction Type:Provider Instructions for Treatment How to Access Health Informa tion Online using Patient Portal and [employer]rd [employer] Apps Indication:UTI symptoms Start:20-Jul-2022 Instruction Type:Patient Education Patient Instructions Indication:Non-smoker Start:23-Jun-2022 Instruction Type:Provider Instructions for Treatment How to Access Health Informa tion Online using Patient Portal and [employer] Apps Indication:Non-smoker Start:23-Jun-2022 Instruction Type:Patient Education Patient Instructions Indication:BMI 21.0-21.9, adult Start:24-Mar-2022 Instruction Type:Provider Instructions for Treatment How to Access Health Informa tion Online using Patient Portal and [employer]rd [employer] Apps Indication:BMI 21.0-21.9, adult Start:24-Mar-2022 Instruction Type:Patient Education Patient Instructions Indication:BMI 21.0-21.9, adult Start:08-Nov-2021 Instruction Type:Provider Instructions for Treatment How to Access Health Informa tion Online using Patient Portal and [employer]rd [employer] Apps Indication:BMI 21.0-21.9, adult Start:08-Nov-2021 Instruction Type:Patient Education Patient Instructions Indication:Non-smoker Start:23-Aug-2021 Instruction Type:Provider Instructions for Treatment How to Access Health Informa tion Online using Patient Portal and [employer]rd [employer] Apps Indication:Non-smoker Start:23-Aug-2021 Instruction Type:Patient Education Patient Instructions Indication:Urinary frequency Start:09-Mar-2021 Instruction Type:Provider Instructions for Treatment How to Access Health Informa tion Online using Patient Portal and 3rd Republican Apps Indication:Urinary frequency Start:09-Mar-2021 Instruction Type:Patient Education Patient Instructions Indication:HTN (hypertension) Start:05-Feb-2021 Instruction Type:Provider Instructions for Treatment How to Access Health Informa tion Online using Patient Portal and 3rd Republican Apps Indication:HTN (hypertension) Start:05-Feb-2021 Instruction Type:Patient Education Patient Instructions Indication:BMI 21.0-21.9, adult Start:22-Jan-2021 Instruction Type:Provider Instructions for Treatment How to Access Health Informa tion Online using Patient Portal and [employer]rd [employer] Apps Indication:BMI 21.0-21.9, adult Start:22-Jan-2021 Instruction Type:Patient Education How to access health informa tion online Indication:Non-smoker Start:06-Aug-2020 Instruction Type:Patient Education How to access health informa tion online - Detail Indication:Non-smoker Start:06-Aug-2020 Instruction Type:Patient Education Patient Instructions Indication:Non-smoker Start:06-Aug-2020 Instruction Type:Provider Instructions for Treatment [facility] Work Phone: Instructions* Name Dates Details Patient Instructions Indication:Encounter for well adult exam with abnormal findings Start:14-Sep-2023 Instruction Type:Provider Instructions for Treatment How to Access Health Informa tion Online using Patient Portal and [employer]rd [employer] Apps Indication:Encounter for well adult exam with abnormal findings Start:14-Sep-2023 Instruction Type:Patient Education Patient Instructions Indication:Non-smoker Start:13-Mar-2023 Instruction Type:Provider Instructions for Treatment How to Access Health Informa tion Online using Patient Portal and [employer]rd [employer] Apps Indication:Non-smoker Start:13-Mar-2023 Instruction Type:Patient Education Patient Instructions Indication:Non-smoker Start:22-Dec-2022 Instruction Type:Provider Instructions for Treatment How to Access Health Informa tion Online using Patient Portal and [employer] Apps Indication:Non-smoker Start:22-Dec-2022 Instruction Type:Patient Education Patient Instructions Indication:BMI 21.0-21.9, adult Start:01-Dec-2022 Instruction Type:Provider Instructions for Treatment How to Access Health Informa tion Online using Patient Portal and [employer]rd [employer] Apps Indication:BMI 21.0-21.9, adult Start:01-Dec-2022 Instruction Type:Patient Education Patient Instructions Indication:BMI 21.0-21.9, adult Start:17-Nov-2022 Instruction Type:Provider Instructions for Treatment How to Access Health Informa tion Online using Patient Portal and [employer]rd [employer] Apps Indication:BMI 21.0-21.9, adult Start:17-Nov-2022 Instruction Type:Patient Education Patient Instructions Indication:Non-smoker Start:05-Sep-2022 Instruction Type:Provider Instructions for Treatment How to Access Health Informa tion Online using Patient Portal and [employer] Apps Indication:Non-smoker Start:05-Sep-2022 Instruction Type:Patient Education Patient Instructions Indication:UTI symptoms Start:20-Jul-2022 Instruction Type:Provider Instructions for Treatment How to Access Health Informa tion Online using Patient Portal and [employer] Apps Indication:UTI symptoms Start:20-Jul-2022 Instruction Type:Patient Education Patient Instructions Indication:Non-smoker Start:23-Jun-2022 Instruction Type:Provider Instructions for Treatment How to Access Health Informa tion Online using Patient Portal and [employer] Apps Indication:Non-smoker Start:23-Jun-2022 Instruction Type:Patient Education Patient Instructions Indication:BMI 21.0-21.9, adult Start:24-Mar-2022 Instruction Type:Provider Instructions for Treatment How to Access Health Informa tion Online using Patient Portal and [employer] Apps Indication:BMI 21.0-21.9, adult Start:24-Mar-2022 Instruction Type:Patient Education Patient Instructions Indication:BMI 21.0-21.9, adult Start:08-Nov-2021 Instruction Type:Provider Instructions for Treatment How to Access Health Informa tion Online using Patient Portal and [employer] Apps Indication:BMI 21.0-21.9, adult Start:08-Nov-2021 Instruction Type:Patient Education Patient Instructions Indication:Non-smoker Start:23-Aug-2021 Instruction Type:Provider Instructions for Treatment How to Access Health Informa tion Online using Patient Portal and [employer] Apps Indication:Non-smoker Start:23-Aug-2021 Instruction Type:Patient Education Patient Instructions Indication:Urinary frequency Start:09-Mar-2021 Instruction Type:Provider Instructions for Treatment How to Access Health Informa tion Online using Patient Portal and [employer] Apps Indication:Urinary frequency Start:09-Mar-2021 Instruction Type:Patient Education Patient Instructions Indication:HTN (hypertension) Start:05-Feb-2021 Instruction Type:Provider Instructions for Treatment How to Access Health Informa tion Online using Patient Portal and [employer] Apps Indication:HTN (hypertension) Start:05-Feb-2021 Instruction Type:Patient Education Patient Instructions Indication:BMI 21.0-21.9, adult Start:22-Jan-2021 Instruction Type:Provider Instructions for Treatment How to Access Health Informa tion Online using Patient Portal and [employer]rd [employer] Apps Indication:BMI 21.0-21.9, adult Start:22-Jan-2021 Instruction Type:Patient Education How to access health informa tion online Indication:Non-smoker Start:06-Aug-2020 Instruction Type:Patient Education How to access health informa tion online - Detail Indication:Non-smoker Start:06-Aug-2020 Instruction Type:Patient Education Patient Instructions Indication:Non-smoker Start:06-Aug-2020 Instruction Type:Provider Instructions for Treatment [facility] Work Phone: Instructions* Name Dates Details Patient Instructions Indication:Encounter for well adult exam with abnormal findings Start:14-Sep-2023 Instruction Type:Provider Instructions for Treatment How to Access Health Informa tion Online using Patient Portal and [employer]rd [employer] Apps Indication:Encounter for well adult exam with abnormal findings Start:14-Sep-2023 Instruction Type:Patient Education Patient Instructions Indication:Non-smoker Start:13-Mar-2023 Instruction Type:Provider Instructions for Treatment How to Access Health Informa tion Online using Patient Portal and [employer] Apps Indication:Non-smoker Start:13-Mar-2023 Instruction Type:Patient Education Patient Instructions Indication:Non-smoker Start:22-Dec-2022 Instruction Type:Provider Instructions for Treatment How to Access Health Informa tion Online using Patient Portal and [employer] Apps Indication:Non-smoker Start:22-Dec-2022 Instruction Type:Patient Education Patient Instructions Indication:BMI 21.0-21.9, adult Start:01-Dec-2022 Instruction Type:Provider Instructions for Treatment How to Access Health Informa tion Online using Patient Portal and [employer] Apps Indication:BMI 21.0-21.9, adult Start:01-Dec-2022 Instruction Type:Patient Education Patient Instructions Indication:BMI 21.0-21.9, adult Start:17-Nov-2022 Instruction Type:Provider Instructions for Treatment How to Access Health Informa tion Online using Patient Portal and [employer] Apps Indication:BMI 21.0-21.9, adult Start:17-Nov-2022 Instruction Type:Patient Education Patient Instructions Indication:Non-smoker Start:05-Sep-2022 Instruction Type:Provider Instructions for Treatment How to Access Health Informa tion Online using Patient Portal and [employer] Apps Indication:Non-smoker Start:05-Sep-2022 Instruction Type:Patient Education Patient Instructions Indication:UTI symptoms Start:20-Jul-2022 Instruction Type:Provider Instructions for Treatment How to Access Health Informa tion Online using Patient Portal and [employer] Apps Indication:UTI symptoms Start:20-Jul-2022 Instruction Type:Patient Education Patient Instructions Indication:Non-smoker Start:23-Jun-2022 Instruction Type:Provider Instructions for Treatment How to Access Health Informa tion Online using Patient Portal and [employer] Apps Indication:Non-smoker Start:23-Jun-2022 Instruction Type:Patient Education Patient Instructions Indication:BMI 21.0-21.9, adult Start:24-Mar-2022 Instruction Type:Provider Instructions for Treatment How to Access Health Informa tion Online using Patient Portal and [employer] Apps Indication:BMI 21.0-21.9, adult Start:24-Mar-2022 Instruction Type:Patient Education Patient Instructions Indication:BMI 21.0-21.9, adult Start:08-Nov-2021 Instruction Type:Provider Instructions for Treatment How to Access Health Informa tion Online using Patient Portal and [employer]rd [employer] Apps Indication:BMI 21.0-21.9, adult Start:08-Nov-2021 Instruction Type:Patient Education Patient Instructions Indication:Non-smoker Start:23-Aug-2021 Instruction Type:Provider Instructions for Treatment How to Access Health Informa tion Online using Patient Portal and [employer] Apps Indication:Non-smoker Start:23-Aug-2021 Instruction Type:Patient Education Patient Instructions Indication:Urinary frequency Start:09-Mar-2021 Instruction Type:Provider Instructions for Treatment How to Access Health Informa tion Online using Patient Portal and [employer]rd [employer] Apps Indication:Urinary frequency Start:09-Mar-2021 Instruction Type:Patient Education Patient Instructions Indication:HTN (hypertension) Start:05-Feb-2021 Instruction Type:Provider Instructions for Treatment How to Access Health Informa tion Online using Patient Portal and [employer] Apps Indication:HTN (hypertension) Start:05-Feb-2021 Instruction Type:Patient Education Patient Instructions Indication:BMI 21.0-21.9, adult Start:22-Jan-2021 Instruction Type:Provider Instructions for Treatment How to Access Health Informa tion Online using Patient Portal and [employer]rd [employer] Apps Indication:BMI 21.0-21.9, adult Start:22-Jan-2021 Instruction Type:Patient Education How to access health informa tion online Indication:Non-smoker Start:06-Aug-2020 Instruction Type:Patient Education How to access health informa tion online - Detail Indication:Non-smoker Start:06-Aug-2020 Instruction Type:Patient Education Patient Instructions Indication:Non-smoker Start:06-Aug-2020 Instruction Type:Provider Instructions for Treatment [facility] Work Phone: Summary Purpose Family History No Family History Records FoundNo Family History Records FoundNo Family History Records Found Advance Directives No Advanced Directives Records Found Advance Directive Response Recorded Date/ Time Living Will Yes April 29, 2021 1 1:37am Power of Dross Puller Yes April 29, 2021 11:37am Advance Directive Response Recorded Date/ Time Living Will Yes April 29, 2021 1 0:37am Power of Dross Puller Yes April 29, 2021 10:37am Advance Directive Response Recorded Date/ Time Living Will Yes January 26, 2024 2:22pm Power of Dross Puller Yes January 25 2:22pm Advance Directive Response Recorded Date/ Time Name of Medical Power of Dross Puller SPOUSE/SON February 21, 2024 11:42am Living Will Yes February 21, 2024 11:42am Power of Dross Puller Yes February 20 11:42am Instructions Name Dates Details How to access health informa tion online Indication:Non-smoker Start:06-Aug-2020 Instruction Type:Patient Education How to access health informa tion online - Detail Indication:Non-smoker Start:06-Aug-2020 Instruction Type:Patient Education Patient Instructions Indication:Non-smoker Start:06-Aug-2020 Instruction Type:Provider Instructions for Treatment Name Dates Details How to access health informa tion online Indication:Non-smoker Start:06-Aug-2020 Instruction Type:Patient Education How to access health informa tion online - Detail Indication:Non-smoker Start:06-Aug-2020 Instruction Type:Patient Education Patient Instructions Indication:Non-smoker Start:06-Aug-2020 Instruction Type:Provider Instructions for Treatment Name Dates Details How to access health informa tion online Indication:Non-smoker Start:06-Aug-2020 Instruction Type:Patient Education How to access health informa tion online - Detail Indication:Non-smoker Start:06-Aug-2020 Instruction Type:Patient Education Patient Instructions Indication:Non-smoker Start:06-Aug-2020 Instruction Type:Provider Instructions for Treatment Name Dates Details How to access health informa tion online Indication:Non-smoker Start:06-Aug-2020 Instruction Type:Patient Education How to access health informa tion online - Detail Indication:Non-smoker Start:06-Aug-2020 Instruction Type:Patient Education Patient Instructions Indication:Non-smoker Start:06-Aug-2020 Instruction Type:Provider Instructions for Treatment Name Dates Details How to access health informa tion online Indication:Non-smoker Start:06-Aug-2020 Instruction Type:Patient Education How to access health informa tion online - Detail Indication:Non-smoker Start:06-Aug-2020 Instruction Type:Patient Education Patient Instructions Indication:Non-smoker Start:06-Aug-2020 Instruction Type:Provider Instructions for Treatment Name Dates Details How to access health informa tion online Indication:Non-smoker Start:06-Aug-2020 Instruction Type:Patient Education How to access health informa tion online - Detail Indication:Non-smoker Start:06-Aug-2020 Instruction Type:Patient Education Patient Instructions Indication:Non-smoker Start:06-Aug-2020 Instruction Type:Provider Instructions for Treatment Name Dates Details Patient Instructions Indication:BMI 21.0-21.9, adult Start:22-Jan-2021 Instruction Type:Provider Instructions for Treatment How to Access Health Informa tion Online using Patient Portal and [employer] Apps Indication:BMI 21.0-21.9, adult Start:22-Jan-2021 Instruction Type:Patient Education How to access health informa tion online Indication:Non-smoker Start:06-Aug-2020 Instruction Type:Patient Education How to access health informa tion online - Detail Indication:Non-smoker Start:06-Aug-2020 Instruction Type:Patient Education Patient Instructions Indication:Non-smoker Start:06-Aug-2020 Instruction Type:Provider Instructions for Treatment Name Dates Details Patient Instructions Indication:HTN (hypertension) Start:05-Feb-2021 Instruction Type:Provider Instructions for Treatment How to Access Health Informa tion Online using Patient Portal and [employer] Apps Indication:HTN (hypertension) Start:05-Feb-2021 Instruction Type:Patient Education Patient Instructions Indication:BMI 21.0-21.9, adult Start:22-Jan-2021 Instruction Type:Provider Instructions for Treatment How to Access Health Informa tion Online using Patient Portal and [employer] Apps Indication:BMI 21.0-21.9, adult Start:22-Jan-2021 Instruction Type:Patient Education How to access health informa tion online Indication:Non-smoker Start:06-Aug-2020 Instruction Type:Patient Education How to access health informa tion online - Detail Indication:Non-smoker Start:06-Aug-2020 Instruction Type:Patient Education Patient Instructions Indication:Non-smoker Start:06-Aug-2020 Instruction Type:Provider Instructions for Treatment Name Dates Details Patient Instructions Indication:HTN (hypertension) Start:05-Feb-2021 Instruction Type:Provider Instructions for Treatment How to Access Health Informa tion Online using Patient Portal and [employer] Apps Indication:HTN (hypertension) Start:05-Feb-2021 Instruction Type:Patient Education Patient Instructions Indication:BMI 21.0-21.9, adult Start:22-Jan-2021 Instruction Type:Provider Instructions for Treatment How to Access Health Informa tion Online using Patient Portal and [employer] Apps Indication:BMI 21.0-21.9, adult Start:22-Jan-2021 Instruction Type:Patient Education How to access health informa tion online Indication:Non-smoker Start:06-Aug-2020 Instruction Type:Patient Education How to access health informa tion online - Detail Indication:Non-smoker Start:06-Aug-2020 Instruction Type:Patient Education Patient Instructions Indication:Non-smoker Start:06-Aug-2020 Instruction Type:Provider Instructions for Treatment Name Dates Details Patient Instructions Indication:Urinary frequency Start:09-Mar-2021 Instruction Type:Provider Instructions for Treatment How to Access Health Informa tion Online using Patient Portal and [employer] Apps Indication:Urinary frequency Start:09-Mar-2021 Instruction Type:Patient Education Patient Instructions Indication:HTN (hypertension) Start:05-Feb-2021 Instruction Type:Provider Instructions for Treatment How to Access Health Informa tion Online using Patient Portal and [employer] Apps Indication:HTN (hypertension) Start:05-Feb-2021 Instruction Type:Patient Education Patient Instructions Indication:BMI 21.0-21.9, adult Start:22-Jan-2021 Instruction Type:Provider Instructions for Treatment How to Access Health Informa tion Online using Patient Portal and [employer] Apps Indication:BMI 21.0-21.9, adult Start:22-Jan-2021 Instruction Type:Patient Education How to access health informa tion online Indication:Non-smoker Start:06-Aug-2020 Instruction Type:Patient Education How to access health informa tion online - Detail Indication:Non-smoker Start:06-Aug-2020 Instruction Type:Patient Education Patient Instructions Indication:Non-smoker Start:06-Aug-2020 Instruction Type:Provider Instructions for Treatment Name Dates Details Patient Instructions Indication:Urinary frequency Start:09-Mar-2021 Instruction Type:Provider Instructions for Treatment How to Access Health Informa tion Online using Patient Portal and [employer] Apps Indication:Urinary frequency Start:09-Mar-2021 Instruction Type:Patient Education Patient Instructions Indication:HTN (hypertension) Start:05-Feb-2021 Instruction Type:Provider Instructions for Treatment How to Access Health Informa tion Online using Patient Portal and [employer] Apps Indication:HTN (hypertension) Start:05-Feb-2021 Instruction Type:Patient Education Patient Instructions Indication:BMI 21.0-21.9, adult Start:22-Jan-2021 Instruction Type:Provider Instructions for Treatment How to Access Health Informa tion Online using Patient Portal and [employer] Apps Indication:BMI 21.0-21.9, adult Start:22-Jan-2021 Instruction Type:Patient Education How to access health informa tion online Indication:Non-smoker Start:06-Aug-2020 Instruction Type:Patient Education How to access health informa tion online - Detail Indication:Non-smoker Start:06-Aug-2020 Instruction Type:Patient Education Patient Instructions Indication:Non-smoker Start:06-Aug-2020 Instruction Type:Provider Instructions for Treatment Chief Complaint and Reason for Visit Chief Complaint POSTMENOPAUSAL Chief Complaint SCREENING Chief Complaint SCREENING PAIN OF LEFT CALF Chief Complaint SCREENING/OSTEO Chief Complaint SCREENING/OSTEO Solitary pulmonary nodule Chief Complaint SCREENING/OSTEO Solitary pulmonary nodule RIGHT KNEE MABEL PROTOCAL Chief Complaint Solitary pulmonary n odule RIGHT KNEE MABEL PROTOCAL PREOP ROBOTIC ASSISTED RIGHT TOTAL KNEE A ROBOTIC ASSISTED RIGHT TOTAL KNEE A Reason for Visit Osteoarthritis of ri ght knee Status post total right knee replacement Chief Complaint RIGHT KNEE MABEL PROT OCAL PREOP ROBOTIC ASSISTED RIGHT TOTAL KNEE A ROBOTIC ASSISTED RIGHT TOTAL KNEE A OSTEO Reason for Visit Osteoarthritis of ri ght knee Status post total right knee replacement Additional Source Comments INFORMATION SOURCE (unrecogn ized section and content) DATE CREATED AUTHOR 06/15/2020 [facility] ([place]) DATE CREATED AUTHOR AUTHOR'S ORGANIZ ATION 03/13/2023 [facility] DATE CREATED AUTHOR AUTHOR'S ORGANIZ ATION 06/07/2025 [facility] Goals (unrecognized section and content) Goals may be documented in a n alternate sectionGoals may be documented in an alternate sectionGoals may be documented in an alternate sectionGoals may be documented in an alternate sectionGoals may be documented in an alternate sectionGoals may be documented in an alternate section Care Teams (unrecognized sec tion and content) Team Status: Active Member Role Status Dates Dr. Onel Mendes MD Family Provider Active Dr. Jennifer Romeo DO Primary Care Provider Active Team Status: Active Member Role Status Dates Dr. Jennifer Romeo DO Primary Care Provider Active Dr. Christiano Odonnell MD Attending Provider Active Team Status: Inactive Member Role Status Dates Dr. Jennifer Romeo DO Primary Care Pr ovider, Attending Provider, Referring Provider Active Team Status: Inactive Member Role Status Dates Dr. Jennifer Romeo DO Primary Care Provider Active Dr. Kade Barnett MD Attending Provider, Referring P junaid Active Team Status: Active Member Role Status Dates Dr. Jennifer Romeo DO Primary Care Provider Active Dr. Aime Martin MD Attending Provider Active Dr. Kade Barnett MD Referring Provider Active Team Status: Active Member Role Status Dates Dr. Jennifer Romeo DO Primary Care Provider Active Dr. Kade Barnett MD Admit Provider, R eferring Provider, Other Provider Active Dr. Bonnie Lindsey DO Attending Provider, Other Provide r Active Team Status: Inactive Member Role Status Dates Dr. Jennifer Romeo DO Primary Care Provider Active Dr. Kade Barnett MD Admit Provider, A ttending Provider, Referring Provider Active Dr. Bonnie Lindsey DO Other Provider Active FOR RECORDS PERTAINING TO PATIENTS WHO ARE OR HAVE BEEN ENROLLED IN A CHEMICAL DEPENDENCY/SUBSTANCEABUSE PROGRAM, SOME INFORMATION MAY BE OMITTED. This clinical summary was aggregated from multiple sources. Caution should be exercised in using it in the provision of clinical care. This summary normalizes information from multiple sources, and as a consequence, information in this document may materially change the coding, format and clinical context of patient data. In addition, data may be omitted in some cases. CLINICAL DECISIONS SHOULD BE BASED ON THE PRIMARY CLINICAL RECORDS. [facility] provides no warranty or guarantee of the accuracy or completeness of information in this document.
[2025-08-01 09:53] LABS: AST(SGOT) 17 U/L (<=31); Alanine Aminotransfer ALT/SGPT 11 U/L (<=34); Albumin, Serum 4.4 g/dL (3.4-4.8); Alkaline Phosphatase 65 U/L (35-104); Anion Gap 11 (5-15); BUN 16 mg/dL (4-19); BUN/Creat Ratio 19.6 RATIO (10-20); Calcium,Total 9.2 mg/dL (7.6-11.0); Carbon Dioxide 25.0 mmol/L (21.0-32.0); Chloride 103 mmol/L (98-108); Globulin 2.8 g/dL (2.2-4.2); Glucose 87 mg/dL (70-99); Potassium 4.6 mmol/L (3.3-5.1); Vitamin D,25 Hydroxy 73.1 ng/mL (30-100)
== END | disposition home or self-care (01) ==
LOC: LAB 07:18
PROVIDERS: PCP Internal Medicine; Referring Provider Internal Medicine Endocrinology, Diabetes & Metabolism; Visit Provider Internal Medicine Endocrinology, Diabetes & Metabolism
DX: E21.3 Hyperparathyroidism, unspecified (principal); M81.0 Age-related osteoporosis without current pathological fracture
CPT/HCPCS: 36415; 80053; 82306; 84443

== ENCOUNTER → 2025-10-08 | Outpatient (CLI) | payer MEDICARE, OTHER, SELFPAY ==
[2025-10-08 10:19] LABS: Hematocrit 34.4 % (37-47); Hemoglobin 10.8 g/dL (12.0-15.0); Mean Corp Hgb Conc 31.4 g/dL (32-36); Mean Corpuscular Volume 83.1 fL (81-99); Mean Platelet Vol. 9.6 fl (6.2-12.0); Platelet Count 345 K/mm3 (150-450); RBC Distribution Width CV 14.6 % (11.6-14.6); RBC Distribution Width SD 44.5 fl (35.1-43.9); Red Blood Count 4.14 M/mm3 (4.2-5.4); White Blood Count 4.1 K/mm3 (4.4-11.0)
[2025-10-08 10:40] LABS: Cholesterol 237 mg/dL (<=200); Low Density Lipoprotein Calc. 129 mg/dL; Triglycerides 79 mg/dL; Very Low Density Lipoprotein 16 mg/dL (5-40); cholesterol:hdl ratio screen 2.49
== END | disposition home or self-care (01) ==
LOC: MTLAB 07:42
PROVIDERS: PCP Internal Medicine; Referring Provider Internal Medicine; Visit Provider Internal Medicine
DX: Z96.651 Presence of right artificial knee joint (principal); E78.00 Pure hypercholesterolemia, unspecified
CPT/HCPCS: 36415; 80061; 85027

== ENCOUNTER → 2025-10-14 | Outpatient (CLI) | payer MEDICARE, OTHER, SELFPAY ==
--- NOTE | 2025-10-14 10:02 | BI_ITS ---
EXAM: SCRN MAMM (CAD)W/JOEY BILAT DATE: 10/14/2025 CLINICAL HISTORY: F, Age 75 y/o , BILAT BRST SCREEN JOEY ADD-ON No family history. TECHNIQUE: Procedure Code: [id number] Modality: MG Procedure: SCRN MAMM (CAD)W/JOEY BILAT COMPARISON: Prior exam(s) dated October 10, 2024.. FINDINGS: TISSUE DENSITY: The breasts are extremely dense, which lowers the sensitivity of mammography. Bilateral Breast Mammographic Findings: No significant masses, calcifications or other abnormalities are identified. No suspicious masses, areas of developing architectural distortion, or suspicious calcifications. There has been no significant interval change. BI/SCRN MAMM (CAD)W/JOEY BILAT IMPRESSION: Stable bilateral screening mammogram. OVERALL FINAL ASSESSMENT BI-RADS 1: NEGATIVE. RECOMMENDATION: Routine annual follow-up in 1 Year Additional Recommendation none A letter with findings and recommendations will be mailed to the patient. Reading Location: [facility]
== END | disposition home or self-care (01) ==
PROVIDERS: PCP Internal Medicine; Referring Provider Internal Medicine; Visit Provider Internal Medicine
DX: Z12.31 Encounter for screening mammogram for malignant neoplasm of breast (principal)
CPT/HCPCS: 77063; 77067